=== PATIENT | female | born 1935 | race Caucasian/White ===

== ENCOUNTER 2020-11-13 08:56 | Inpatient (IN) | payer MEDICARE, OTHER ==
[2020-11-13] MEDS ORDERED: FUROSEMIDE 10 MG/ML 4 ML VIAL IV STA (09:14)
--- NOTE | 2020-11-13 09:20 | ED ---
General Adult HPI - General Chief complaint: Weakness Stated complaint: weakness Time Seen by Provider: 11/13/20 09:05 Source: patient, RN notes reviewed, old records reviewed Mode of arrival: EMS Limitations: no limitations - History of Present Illness Initial comments: This is an 85-year-old female presents emergency Department because she's been weaker and short of breath. Patient states she did get out of bed and fall today but she did not get hurt but she needed help to get up so her sister called EMS. Patient states over the last few days she's felt little more short of breath and slightly weaker. Patient denies any fever chills or cough per patient denies chest pain palpitations. Patient states she has noticed increased swelling to the legs bilaterally. Patient denies any calf tenderness. Patient denies any abdominal pain patient denies nausea vomiting or diarrhea. - Related Data Allergies Allergy/AdvReac Type Severity Reaction Status Date / Time No Known Allergies Allergy Verified 11/13/20 09:09 Review of Systems ROS Statement: Those systems with pertinent positive or pertinent negative responses have been documented in the HPI. ROS Other: All systems not noted in ROS Statement are negative. Past Medical History Past Medical History: Diabetes Mellitus History of Any Multi-Drug Resistant Organisms: None Reported Past Surgical History: No Surgical Hx Reported Past Psychological History: No Psychological Hx Reported Smoking Status: Former smoker Past Alcohol Use History: None Reported Past Drug Use History: None Reported General Exam - General Exam Comments Initial Comments: GENERAL: Patient is well-developed and well-nourished. Patient is nontoxic and well- hydrated and is in no acute distress. ENT: Neck is soft and supple. No significant lymphadenopathy is noted. Oropharynx is clear. Moist mucous membranes. Neck has full range of motion without eliciting any pain. EYES: The sclera were anicteric and conjunctiva were pink and moist. Extraocular movements were intact and pupils were equal round and reactive to light. Eyelids were unremarkable. PULMONARY: Patient is very diminished breath sounds. CARDIOVASCULAR: There is a regular rate and rhythm without any murmurs gallops or rubs. ABDOMEN: Soft and nontender with normal bowel sounds. SKIN: Skin is clear with no lesions or rashes and otherwise unremarkable. NEUROLOGIC: Patient is alert and oriented x3. Cranial nerves II through XII are grossly intact. Motor and sensory are also intact. Normal speech, volume and content. Symmetrical smile. MUSCULOSKELETAL: Normal extremities with adequate strength and full range of motion. Patient has 2+ edema bilaterally. LYMPHATICS: No significant lymphadenopathy is noted PSYCHIATRIC: Normal psychiatric evaluation. Limitations: no limitations Course Vital Signs 11/13/20 11/13/20 11/13/20 09:03 09:09 10:00 Temperature 97.8 F Pulse Rate 85 91 Respiratory 24 24 Rate Blood Pressure 132/76 132/76 O2 Sat by Pulse 87 L 96 97 Oximetry 11/13/20 11:00 Temperature Pulse Rate 92 Respiratory 25 H Rate Blood Pressure 131/75 O2 Sat by Pulse 98 Oximetry Medical Decision Making - Medical Decision Making Patient added that she was a smoker for probably at least 30 years but hasn't smoked in years. EKG shows sinus rhythm at 82 bpm PA interval is 240 QRS is 86 Q-T intervals 428 QTC is 500 per patient's EKG shows no ST segment elevation or depression. Patient does however have Q waves in V1 through the 6. I have no old EKG to compare to Chest x-ray shows pulmonary edema. Patient received Lasix in the emergency department. I spoke with Dr. Luna he agreed to admit the patient I admitted the patient wrote admitting orders I consult cardiology. I continued Lasix Nitropaste on the floor. - Lab Data Result diagrams: 11/13/20 09:30 11/13/20 09:30 Lab Results 11/13/20 11/13/20 11/13/20 Range/Units 09:30 09:30 09:30 WBC 3.9 (3.8-10.6) k/uL RBC 4.02 (3.80-5.40) m/uL Hgb 10.6 L (11.4-16.0) gm/dL Hct 34.1 (34.0-46.0) % MCV 84.7 (80.0-100.0) fL MCH 26.3 (25.0-35.0) pg MCHC 31.1 (31.0-37.0) g/dL RDW 17.7 H (11.5-15.5) % Plt Count 337 (150-450) k/uL MPV 7.5 Neutrophils % 77 % Lymphocytes % 14 % Monocytes % 6 % Eosinophils % 2 % Basophils % 0 % Neutrophils # 3.0 (1.3-7.7) k/uL Lymphocytes # 0.5 L (1.0-4.8) k/uL Monocytes # 0.2 (0-1.0) k/uL Eosinophils # 0.1 (0-0.7) k/uL Basophils # 0.0 (0-0.2) k/uL Hypochromasia Marked Poikilocytosis Slight Anisocytosis Slight PT 11.2 (9.0-12.0) sec INR 1.1 (<1.2) APTT 20.9 L (22.0-30.0) sec Sodium 137 (137-145) mmol/L Potassium 4.1 (3.5-5.1) mmol/L Chloride 101 (98-107) mmol/L Carbon Dioxide 30 (22-30) mmol/L Anion Gap 6 mmol/L BUN 15 (7-17) mg/dL Creatinine 0.66 (0.52-1.04) mg/dL Est GFR (CKD-EPI)AfAm >90 (>60 ml/min/1.73 sqM) Est GFR (CKD-EPI)NonAf 82 (>60 ml/min/1.73 sqM) Glucose 274 H (74-99) mg/dL Plasma Lactic Acid Jeremie (0.7-2.0) mmol/L Calcium 9.1 (8.4-10.2) mg/dL Magnesium 1.8 (1.6-2.3) mg/dL Total Bilirubin 0.6 (0.2-1.3) mg/dL AST 32 (14-36) U/L ALT 13 (4-34) U/L Alkaline Phosphatase 81 (38-126) U/L Troponin I (0.000-0.034) ng/mL NT-Pro-B Natriuret Pep pg/mL Total Protein 6.3 (6.3-8.2) g/dL Albumin 3.7 (3.5-5.0) g/dL Urine Color Urine Appearance (Clear) Urine pH (5.0-8.0) Ur Specific [place] (1.001-1.035) Urine Protein (Negative) Urine Glucose (UA) (Negative) Urine Ketones (Negative) Urine Blood (Negative) Urine Nitrite (Negative) Urine Bilirubin (Negative) Urine Urobilinogen (<2.0) mg/dL Ur Leukocyte Esterase (Negative) Urine RBC (0-5) /hpf Urine WBC (0-5) /hpf Ur Squamous Epith Cells (0-4) /hpf Urine Bacteria (None) /hpf Hyaline Casts (0-2) /lpf Urine Mucus (None) /hpf 11/13/20 11/13/20 11/13/20 Range/Units 09:30 09:30 09:30 WBC (3.8-10.6) k/uL RBC (3.80-5.40) m/uL Hgb (11.4-16.0) gm/dL Hct (34.0-46.0) % MCV (80.0-100.0) fL MCH (25.0-35.0) pg MCHC (31.0-37.0) g/dL RDW (11.5-15.5) % Plt Count (150-450) k/uL MPV Neutrophils % % Lymphocytes % % Monocytes % % Eosinophils % % Basophils % % Neutrophils # (1.3-7.7) k/uL Lymphocytes # (1.0-4.8) k/uL Monocytes # (0-1.0) k/uL Eosinophils # (0-0.7) k/uL Basophils # (0-0.2) k/uL Hypochromasia Poikilocytosis Anisocytosis PT (9.0-12.0) sec INR (<1.2) APTT (22.0-30.0) sec Sodium (137-145) mmol/L Potassium (3.5-5.1) mmol/L Chloride (98-107) mmol/L Carbon Dioxide (22-30) mmol/L Anion Gap mmol/L BUN (7-17) mg/dL Creatinine (0.52-1.04) mg/dL Est GFR (CKD-EPI)AfAm (>60 ml/min/1.73 sqM) Est GFR (CKD-EPI)NonAf (>60 ml/min/1.73 sqM) Glucose (74-99) mg/dL Plasma Lactic Acid Jeremie 1.6 (0.7-2.0) mmol/L Calcium (8.4-10.2) mg/dL Magnesium (1.6-2.3) mg/dL Total Bilirubin (0.2-1.3) mg/dL AST (14-36) U/L ALT (4-34) U/L Alkaline Phosphatase (38-126) U/L Troponin I 0.063 H* (0.000-0.034) ng/mL NT-Pro-B Natriuret Pep 4420 pg/mL Total Protein (6.3-8.2) g/dL Albumin (3.5-5.0) g/dL Urine Color Urine Appearance (Clear) Urine pH (5.0-8.0) Ur Specific [place] (1.001-1.035) Urine Protein (Negative) Urine Glucose (UA) (Negative) Urine Ketones (Negative) Urine Blood (Negative) Urine Nitrite (Negative) Urine Bilirubin (Negative) Urine Urobilinogen (<2.0) mg/dL Ur Leukocyte Esterase (Negative) Urine RBC (0-5) /hpf Urine WBC (0-5) /hpf Ur Squamous Epith Cells (0-4) /hpf Urine Bacteria (None) /hpf Hyaline Casts (0-2) /lpf Urine Mucus (None) /hpf 11/13/20 Range/Units 10:40 WBC (3.8-10.6) k/uL RBC (3.80-5.40) m/uL Hgb (11.4-16.0) gm/dL Hct (34.0-46.0) % MCV (80.0-100.0) fL MCH (25.0-35.0) pg MCHC (31.0-37.0) g/dL RDW (11.5-15.5) % Plt Count (150-450) k/uL MPV Neutrophils % % Lymphocytes % % Monocytes % % Eosinophils % % Basophils % % Neutrophils # (1.3-7.7) k/uL Lymphocytes # (1.0-4.8) k/uL Monocytes # (0-1.0) k/uL Eosinophils # (0-0.7) k/uL Basophils # (0-0.2) k/uL Hypochromasia Poikilocytosis Anisocytosis PT (9.0-12.0) sec INR (<1.2) APTT (22.0-30.0) sec Sodium (137-145) mmol/L Potassium (3.5-5.1) mmol/L Chloride (98-107) mmol/L Carbon Dioxide (22-30) mmol/L Anion Gap mmol/L BUN (7-17) mg/dL Creatinine (0.52-1.04) mg/dL Est GFR (CKD-EPI)AfAm (>60 ml/min/1.73 sqM) Est GFR (CKD-EPI)NonAf (>60 ml/min/1.73 sqM) Glucose (74-99) mg/dL Plasma Lactic Acid Jeremie (0.7-2.0) mmol/L Calcium (8.4-10.2) mg/dL Magnesium (1.6-2.3) mg/dL Total Bilirubin (0.2-1.3) mg/dL AST (14-36) U/L ALT (4-34) U/L Alkaline Phosphatase (38-126) U/L Troponin I (0.000-0.034) ng/mL NT-Pro-B Natriuret Pep pg/mL Total Protein (6.3-8.2) g/dL Albumin (3.5-5.0) g/dL Urine Color Colorless Urine Appearance Clear (Clear) Urine pH 5.0 (5.0-8.0) Ur Specific [place] 1.006 (1.001-1.035) Urine Protein Negative (Negative) Urine Glucose (UA) 3+ H (Negative) Urine Ketones Negative (Negative) Urine Blood Negative (Negative) Urine Nitrite Negative (Negative) Urine Bilirubin Negative (Negative) Urine Urobilinogen <2.0 (<2.0) mg/dL Ur Leukocyte Esterase Trace H (Negative) Urine RBC 2 (0-5) /hpf Urine WBC <1 (0-5) /hpf Ur Squamous Epith Cells <1 (0-4) /hpf Urine Bacteria Rare H (None) /hpf Hyaline Casts 4 H (0-2) /lpf Urine Mucus Rare H (None) /hpf Critical Care Time Critical Care Time: Yes Total Critical Care Time: 35 Disposition Clinical Impression: Acute pulmonary edema Disposition: ADMITTED IP TO THIS HOSP Referrals: Sandee Hernandez MD [Primary Care Provider] - 1-2 days Time of Disposition: 11:08
[2020-11-13 09:44] LABS: Anisocytosis Slight; Basophils % (A) 0 %; Eosinophils # (A) 0.1 k/uL (0-0.7); Eosinophils % (A) 2 %; HCT 34.1 % (34.0-46.0); HGB 10.6 gm/dL (11.4-16.0); Hypochromasia Marked; Lymphocytes # (A) 0.5 k/uL (1.0-4.8); Lymphocytes % (A) 14 %; MCH 26.3 pg (25.0-35.0); MCHC 31.1 g/dL (31.0-37.0); MCV 84.7 fL (80.0-100.0); Mean Platelet Volume 7.5; Monocytes # (A) 0.2 k/uL (0-1.0); Monocytes % (A) 6 %; Neutrophils % (A) 77 %; Platelet Count 337 k/uL (150-450); Poikilocytosis Slight; RBC 4.02 m/uL (3.80-5.40); RDW 17.7 % (11.5-15.5); WBC 3.9 k/uL (3.8-10.6)
[2020-11-13 09:55] LABS: ALT 13 U/L (4-34); AST 32 U/L (14-36); African American GFR (CKD) >90 (>60 ml/min/1.73 sqM); Albumin 3.7 g/dL (3.5-5.0); Alkaline Phosphatase 81 U/L (38-126); Anion Gap 6 mmol/L; Blood Urea Nitrogen 15 mg/dL (7-17); Calcium 9.1 mg/dL (8.4-10.2); Carbon Dioxide 30 mmol/L (22-30); Chloride 101 mmol/L (98-107); Glucose 274 mg/dL (74-99); Magnesium 1.8 mg/dL (1.6-2.3); Non-African American GFR(CKD) 82 (>60 ml/min/1.73 sqM); Potassium 4.1 mmol/L (3.5-5.1); Sodium 137 mmol/L (137-145); Total Bilirubin 0.6 mg/dL (0.2-1.3); Total Protein 6.3 g/dL (6.3-8.2)
[2020-11-13 10:01] LABS: INR 1.1 (<1.2); Prothrombin Time 11.2 sec (9.0-12.0)
--- NOTE | 2020-11-13 10:04 | XR ---
EXAMINATION TYPE: XR chest 2V DATE OF EXAM: 11/13/2020 COMPARISON: NONE HISTORY: Shortness of breath TECHNIQUE: Frontal and lateral views of the chest are obtained. FINDINGS: Scattered senescent parenchymal changes are noted. There is cardiomegaly with pulmonary venous conges tion and scattered infiltrates. Findings may reflect early congestive failure although infiltrates of other etiology are not excluded. Correlate clinically and progress studies are advised. Mediastinal structures are stable and grossly unremarkable. No evidence for hilar prominence. Degenerative changes dorsal spine. IMPRESSION: 1. There is cardiomegaly with pulmonary venous congestion and scattered infiltrates. Findings may ref lect early congestive failure although infiltrates of other etiology are not excluded. Correlate clin ically and progress studies are advised.
[2020-11-13 10:43] LABS: Partial Thromboplastin Time 20.9 sec (22.0-30.0)
[2020-11-13 10:54] LABS: Appearance,Urine Clear (Clear); Bacteria,Urine Rare /hpf; Bilirubin,Urine Negative (Negative); Blood,Urine Negative (Negative); Color,Urine Colorless; Glucose,Urine (UA) 3+ (Negative); Hyaline Casts,Urine 4 /lpf (0-2); Ketones,Urine Negative (Negative); Leukocyte Esterase,Urine Trace (Negative); Mucus,Urine Rare /hpf; Nitrite,Urine Negative (Negative); Protein,Urine Negative (Negative); RBC,Urine 2 /hpf (0-5); Specific Gravity,Urine 1.006 (1.001-1.035); Squamous Epithelial Cell,Urine <1 /hpf (0-4); Urobilinogen,Urine <2.0 mg/dL (<2.0); WBC,Urine <1 /hpf (0-5)
[2020-11-13] MEDS ORDERED: ASPIRIN 325 MG TAB PO STA (11:08)
[2020-11-13] MEDS ORDERED: NITROGLYCERIN OINT 1 INCH/GM PACKET TOPICAL SCH (13:00)
--- NOTE | 2020-11-13 14:39 | P.CRDCN ---
History of Present Illness Consult date: 11/13/20 History of present illness: HISTORY OF PRESENT ILLNESS: This is a 85-year-old female with a past medical history significant for diabetes mellitus, hyperlipidemia, and former nicotine dependence. Patient does not follow with a fruit checker. We have been asked to see the patient in consultation for pulmonary edema. Patient examined at the bedside in the emergency room. Patient is currently alert and oriented 1. Patient is unable to give much history. Patient thinks that she is at home at the time of examination. When patient was reoriented and told why she was in the hospital she was unable to tell me why she came to the hospital or who brought her here. Patient currently denies chest pain or pressure. She denies shortness of anette th. She denies dizziness or lightheadedness. Patient was found to be in pulmonary edema and was started on IV Lasix. Preliminary echocardiogram completed in the emergency room reveals ejection fraction 20-25% and moderate aortic stenosis. EKG reveals sinus mechanism with nonspecific changes. First degree AV block. Left axis deviation. Chest xray cardiomegaly with pulmonary venous congestion and scattered infiltrates. Findings may reflect early congestive heart failure although infiltrates and other etiologies are not excluded. Laboratory data: WBC 3.9. Hemoglobin 10.6. Platelet count 337. Sodium 137. Potassium 4.1. BUN 15. Creatinine 0.66. BNP 4420. Troponin 0.063. 0.061. Current home cardiac medications include simvastatin 40 mg daily REVIEW OF SYSTEMS: At the time of my exam: CONSTITUTIONAL: Denies fever or chills. HEENT: Denies blurred vision, vision changes, or eye pain. Denies hemoptysis CARDIOVASCULAR: Denies chest pain. Denies orthopnea. Denies PND. Denies palpitations RESPIRATORY: Denies shortness of breath. GASTROINTESTINAL: Denies abdominal pain. Denies nausea or vomiting. HEMATOLOGIC: Denies bleeding disorders. GENITOURINARY: Denies any blood in urine. SKIN: Denies pruitis. Denies rash. PHYSICAL EXAM: VITAL SIGNS: Reviewed. GENERAL: Well-developed in no acute distress. HEENT: Head is normocephalic. Pupils are equal, round. Sclerae anicteric. Mucous membranes of the mouth are moist. Neck supple. No JVD or thyromegaly LUNGS: Respirations even and unlabored. Lungs diminished bilaterally with bibasilar rales. HEART: Regular rate and rhythm. S1 and S2 heard. Systolic murmur noted. Heart sounds distant. ABDOMEN: Soft. Nondistended. Nontender. EXTREMITIES: Normal range of motion. No clubbing or cyanosis. Peripheral pulses intact. Trace bilateral pedal edema NEUROLOGIC: Awake and alert. Oriented x 1. ASSESSMENT: Acute systolic heart failure, EF 20-25%, BNP 4420 Moderate aortic stenosis Abnormal troponins, not indicative of myocardial injury Diabetes mellitus Hypertension Former nicotine dependence Morbid obesity, BMI 52.9 PLAN: Preliminary echocardiogram completed in the emergency room reveals ejection fraction 20-25% and moderate aortic stenosis. Await final read. Continue IV lasix 40mg Q8 hours Daily weights Accurate I&O Monitor kidney function Resume home dose of Simvastatin Decrease aspirin to 81 mg daily. Discontinue nitro paste. Begin metoprolol 12.5 mg twice a day Begin lisinopril 2.5 mg daily Further recommendations pending patient's course Nurse practitioner note has been reviewed by physician. Signing provider agrees with the documented findings, assessment, and plan of care. Past Medical History Past Medical History: Diabetes Mellitus History of Any Multi-Drug Resistant Organisms: None Reported Past Surgical History: No Surgical Hx Reported Past Psychological History: No Psychological Hx Reported Smoking Status: Former smoker Past Alcohol Use History: None Reported Past Drug Use History: None Reported Medications and Allergies Home Medications Medication Instructions Recorded Confirmed Type Acetaminophen Tab [Tylenol Tab] 1,000 mg PO AC-TID 11/13/20 11/13/20 History Glimepiride [Amaryl] 4 mg PO BID 11/13/20 11/13/20 History Multivitamins, Thera [Multivitamin 1 tab PO DAILY 11/13/20 11/13/20 History (formulary)] Pioglitazone [Actos] 30 mg PO DAILY 11/13/20 11/13/20 History Simvastatin 40 mg PO HS 11/13/20 11/13/20 History Allergies Allergy/AdvReac Type Severity Reaction Status Date / Time No Known Allergies Allergy Verified 11/13/20 11:58 Physical Exam Vitals: Vital Signs Temp Pulse Resp BP Pulse Ox 11/13/20 14:11 88 18 118/59 98 11/13/20 12:30 92 24 132/75 95 11/13/20 12:15 86 132/75 98 11/13/20 12:00 86 98 11/13/20 11:45 86 99 11/13/20 11:30 89 97 11/13/20 11:22 94 L 11/13/20 11:15 90 98 11/13/20 11:00 92 25 H 131/75 98 11/13/20 10:00 91 24 132/76 97 11/13/20 09:09 96 11/13/20 09:03 97.8 F 85 24 132/76 87 L Intake and Output 11/12/20 11/13/20 11/13/20 22:59 06:59 14:59 Other: Weight 122.924 kg Results 11/13/20 09:30 11/13/20 09:30 Cardiac Enzymes 11/13/20 11/13/20 11/13/20 Range/Units 09:30 09:30 12:26 AST 32 (14-36) U/L Troponin I 0.063 H* 0.061 H* (0.000-0.034) ng/mL Coagulation 11/13/20 Range/Units 09:30 PT 11.2 (9.0-12.0) sec APTT 20.9 L (22.0-30.0) sec CBC 11/13/20 Range/Units 09:30 WBC 3.9 (3.8-10.6) k/uL RBC 4.02 (3.80-5.40) m/uL Hgb 10.6 L (11.4-16.0) gm/dL Hct 34.1 (34.0-46.0) % Plt Count 337 (150-450) k/uL Comprehensive Metabolic Panel 11/13/20 Range/Units 09:30 Sodium 137 (137-145) mmol/L Potassium 4.1 (3.5-5.1) mmol/L Chloride 101 (98-107) mmol/L Carbon Dioxide 30 (22-30) mmol/L BUN 15 (7-17) mg/dL Creatinine 0.66 (0.52-1.04) mg/dL Glucose 274 H (74-99) mg/dL Calcium 9.1 (8.4-10.2) mg/dL AST 32 (14-36) U/L ALT 13 (4-34) U/L Alkaline Phosphatase 81 (38-126) U/L Total Protein 6.3 (6.3-8.2) g/dL Albumin 3.7 (3.5-5.0) g/dL Current Medications Generic Name Dose Route Start Last Admin Trade Name Freq PRN Reason Stop Dose Admin Aspirin 81 mg 11/14/20 09:00 Aspirin 81 Mg PO DAILY FELICIA Atorvastatin Calcium 20 mg 11/13/20 21:00 Atorvastatin 20 Mg Tab PO HS FELICIA Furosemide 40 mg 11/13/20 16:00 Furosemide 40 Mg Tab PO Q8HR FELICIA Metoprolol Tartrate 12.5 mg 11/13/20 21:00 Metoprolol Tartrate 12.5 Mg Tab PO BID FELICIA Intake and Output 11/12/20 11/13/20 11/13/20 22:59 06:59 14:59 Other: Weight 122.924 kg Patient Weight 11/14/20 06:59 Weight 122.924 kg 11/13/20 09:30 11/13/20 09:30
[2020-11-13] MEDS: FUROSEMIDE 40 MG TAB PO SCH ×2 (16:57→23:47)
[2020-11-13 21:18] LABS: Glucose,Whole Blood 178 mg/dL (75-99)
[2020-11-13] MEDS: ATORVASTATIN 20 MG TAB PO SCH (21:42)
[2020-11-13] MEDS: METOPROLOL TARTRATE 12.5 MG TAB PO SCH (21:42)
[2020-11-13] MEDS: INSULIN ASPART (NovoLOG) 100 UNIT/ML VIAL SQ SCH (21:45)
--- NOTE | 2020-11-13 22:24 | P.HPIM ---
History of Present Illness H&P Date: 11/13/20 Chief Complaint: Short of breath History of presenting complaint: This is a pleasant 85-year-old patient, was chronic stable medical conditions include diabetes, hyperlipidemia, obesity. Osteoarthritis. Patient has been feeling a bit weak and short of breath. She was trying to get out of bed and fell to the floor. Unable to get up. Normally she able to walk around. For her sister called EMS. Denies any fever and chills. No cough. Some swelling to lower extremity. Appetite is fair Review of systems: GEN.: Tired EYES: None HEENT: None NECK: None RESPIRATORY: As above CARDIOVASCULAR: Edema GASTROINTESTINAL: None GENITOURINARY: None MUSCULOSKELETAL: [Some joint pains LYMPHATICS: None HEMATOLOGICAL: None PSYCHIATRY: None NEUROLOGICAL: None Past medical history to include: Diabetes, hyperlipidemia, obesity Social history: Lives with her sister. Did smoke in the remote past. No alcohol. Physical examination: VITAL SIGNS: 97.8, 85, 24, 132/76, 87% on room air GENERAL: BMI 53, laying in bed, tired. EYES: Pupils equal. Conjunctiva normal. HEENT: External appearance of nose and ears normal, oral cavity grossly normal. NECK: JVD unable to assess; masses not palpable. HEART: First and second heart sounds are normal; edema present. LUNGS: Respiratory rate increased decreased breath sounds. ABDOMEN: Soft, nontender, liver spleen not palpable, no masses palpable. PSYCH: Alert and oriented x3; mood and affect normal. MUSCULAR skeletal: Evidence of OA NEUROLOGICAL: Cranial nerves grossly intact; no facial asymmetry, power and sensation grossly intact. LYMPHATICS: No lymph nodes palpable in the axilla and neck INVESTIGATIONS, reviewed in the clinical context: WBC 3.9 hemoglobin 10.6 platelets 337 potassium 4.1 creatinine 0.66 Troponin I: 0.063, 0.061, 0.063 Coronavirus [PCR]-not detected EKG tracing personally reviewed by me-normal sinus rhythm poor R-wave progression some nonspecific ST-T segment changes Chest x-ray film personally reviewed by me-cardiomegaly and pulmonary edema Assessment and plan: -This patient presents with increasing shortness of breath edema checks to x-ray compatible with pulmonary edema. Acute congestive heart failure exacerbation patient be placed on Lasix. Beta lew, SUNNY inhibitor. -Troponin leak could be from CHF. Has no chest pain -Diabetes mellitus type 2 and oral hypoglycemic. Continue with the same follow Accu-Cheks -Morbid obesity BMI 53. For weight loss measures as outpatient and follow with PCP -Hyperlipidemia. Switch to Lipitor from Zocor. With a better clinical profile -Primary osteoarthritis. Use Tylenol when necessary Care was discussed with the patient. 2-D echocardiogram. Cardiology was consulted. Past Medical History Past Medical History: Diabetes Mellitus History of Any Multi-Drug Resistant Organisms: None Reported Past Surgical History: No Surgical Hx Reported Past Psychological History: No Psychological Hx Reported Smoking Status: Former smoker Past Alcohol Use History: None Reported Past Drug Use History: None Reported - Past Family History Father Family Medical History: Diabetes Mellitus, Myocardial Infarction (CT) Medications and Allergies Home Medications Medication Instructions Recorded Confirmed Type Acetaminophen Tab [Tylenol Tab] 1,000 mg PO AC-TID 11/13/20 11/13/20 History Glimepiride [Amaryl] 4 mg PO BID 11/13/20 11/13/20 History Multivitamins, Thera [Multivitamin 1 tab PO DAILY 11/13/20 11/13/20 History (formulary)] Pioglitazone [Actos] 30 mg PO DAILY 11/13/20 11/13/20 History Simvastatin 40 mg PO HS 11/13/20 11/13/20 History Allergies Allergy/AdvReac Type Severity Reaction Status Date / Time No Known Allergies Allergy Verified 11/13/20 11:58 Physical Exam Vitals: Vital Signs Temp Pulse Pulse Resp BP BP Pulse Ox 11/13/20 22:08 98.1 F 84 20 120/98 99 11/13/20 20:34 98.2 F 86 18 112/64 97 11/13/20 16:00 71 18 101/56 99 11/13/20 14:11 88 18 118/59 98 11/13/20 12:30 92 24 132/75 95 11/13/20 12:15 86 132/75 98 11/13/20 12:00 97.7 F 86 84 18 101/56 100 11/13/20 11:45 86 99 11/13/20 11:30 89 97 11/13/20 11:22 94 L 11/13/20 11:15 90 98 11/13/20 11:00 92 25 H 131/75 98 11/13/20 10:00 91 24 132/76 97 11/13/20 09:09 96 11/13/20 09:03 97.8 F 85 24 132/76 87 L Intake and Output 11/13/20 11/13/20 11/13/20 06:59 14:59 22:59 Intake Total 50 Output Total 150 Balance -100 Intake: Oral 50 Output: Urine 150 Other: Voiding Method Indwelling Catheter # Voids 3 Weight 122.924 kg 123.1 kg Results CBC & Chem 7: 11/13/20 09:30 11/13/20 09:30 Labs: Abnormal Lab Results - Last 24 Hours (Table) 11/13/20 11/13/20 11/13/20 Range/Units 09:30 09:30 09:30 Hgb 10.6 L (11.4-16.0) gm/dL RDW 17.7 H (11.5-15.5) % Lymphocytes # 0.5 L (1.0-4.8) k/uL APTT 20.9 L (22.0-30.0) sec Glucose 274 H (74-99) mg/dL POC Glucose (mg/dL) (75-99) mg/dL Troponin I (0.000-0.034) ng/mL Urine Glucose (UA) (Negative) Ur Leukocyte Esterase (Negative) Urine Bacteria (None) /hpf Hyaline Casts (0-2) /lpf Urine Mucus (None) /hpf 11/13/20 11/13/20 11/13/20 Range/Units 09:30 10:40 12:26 Hgb (11.4-16.0) gm/dL RDW (11.5-15.5) % Lymphocytes # (1.0-4.8) k/uL APTT (22.0-30.0) sec Glucose (74-99) mg/dL POC Glucose (mg/dL) (75-99) mg/dL Troponin I 0.063 H* 0.061 H* (0.000-0.034) ng/mL Urine Glucose (UA) 3+ H (Negative) Ur Leukocyte Esterase Trace H (Negative) Urine Bacteria Rare H (None) /hpf Hyaline Casts 4 H (0-2) /lpf Urine Mucus Rare H (None) /hpf 11/13/20 11/13/20 Range/Units 16:35 21:16 Hgb (11.4-16.0) gm/dL RDW (11.5-15.5) % Lymphocytes # (1.0-4.8) k/uL APTT (22.0-30.0) sec Glucose (74-99) mg/dL POC Glucose (mg/dL) 178 H (75-99) mg/dL Troponin I 0.063 H* (0.000-0.034) ng/mL Urine Glucose (UA) (Negative) Ur Leukocyte Esterase (Negative) Urine Bacteria (None) /hpf Hyaline Casts (0-2) /lpf Urine Mucus (None) /hpf Thrombosis Risk Factor Assmnt - Choose All That Apply Each Factor Represents 1 point: Obesity (BMI >25) Each Risk Factor Represents 3 Points: Age 75 years or older Thrombosis Risk Factor Assessment Total Risk Factor Score: 4 Thrombosis Risk Factor Assessment Level: Moderate Risk
[2020-11-14 05:55] LABS: Glucose,Whole Blood 139 mg/dL (75-99)
[2020-11-14] MEDS: INSULIN ASPART (NovoLOG) 100 UNIT/ML VIAL SQ SCH ×4 (06:27→20:58)
[2020-11-14] MEDS: ENOXAPARIN 40 MG/0.4 ML SYRINGE SQ SCH (08:34)
[2020-11-14] MEDS: FUROSEMIDE 40 MG TAB PO SCH ×3 (08:34→22:12)
[2020-11-14] MEDS: METOPROLOL TARTRATE 12.5 MG TAB PO SCH (08:34)
[2020-11-14] MEDS: ASPIRIN 81 MG PO SCH (08:34)
[2020-11-14] MEDS ORDERED: ASPIRIN 325 MG TAB PO SCH (09:00)
[2020-11-14] MEDS ORDERED: FAMOTIDINE 20 MG/2 ML VIAL IV SCH (09:00)
[2020-11-14 10:29] LABS: Anisocytosis Slight; Basophils % (A) 0 %; Eosinophils # (A) 0.1 k/uL (0-0.7); Eosinophils % (A) 1 %; HCT 34.1 % (34.0-46.0); HGB 10.3 gm/dL (11.4-16.0); Hypochromasia Marked; Lymphocytes # (A) 0.5 k/uL (1.0-4.8); Lymphocytes % (A) 12 %; MCH 25.7 pg (25.0-35.0); MCHC 30.2 g/dL (31.0-37.0); MCV 85.1 fL (80.0-100.0); Mean Platelet Volume 7.1; Monocytes # (A) 0.3 k/uL (0-1.0); Monocytes % (A) 7 %; Neutrophils # (A) 3.4 k/uL (1.3-7.7); Neutrophils % (A) 78 %; Platelet Count 339 k/uL (150-450); Poikilocytosis Slight; RDW 17.3 % (11.5-15.5); WBC 4.4 k/uL (3.8-10.6)
[2020-11-14 10:58] LABS: African American GFR (CKD) >90 (>60 ml/min/1.73 sqM); Anion Gap 4 mmol/L; Blood Urea Nitrogen 13 mg/dL (7-17); Calcium 8.9 mg/dL (8.4-10.2); Carbon Dioxide 39 mmol/L (22-30); Chloride 94 mmol/L (98-107); Glucose 173 mg/dL (74-99); Magnesium 1.5 mg/dL (1.6-2.3); Non-African American GFR(CKD) 78 (>60 ml/min/1.73 sqM); Potassium 3.7 mmol/L (3.5-5.1); Sodium 137 mmol/L (137-145)
[2020-11-14 11:35] LABS: Glucose,Whole Blood 210 mg/dL (75-99)
--- NOTE | 2020-11-14 11:37 | ECHOF ---
Referral Reason:LV function, CHF MEASUREMENTS -------- HEIGHT: 152.4 cm WEIGHT: 127.0 kg BP: RVIDd: 3.1 cm (< 3.3) IVSd: 1.2 cm (0.6 - 1.1) LVIDd: 5.7 cm (3.9 - 5.3) LVPWd: 1.5 cm (0.6 - 1.1) IVSs: 1.6 cm LVIDs: 4.4 cm LVPWs: 1.7 cm LA Diam: 4.5 cm (2.7 - 3.8) Ao Diam: 2.5 cm (2.0 - 3.7) MV EXCURSION: 17.332 mm (> 18.000) MV EF SLOPE: 60 mm/s (70 - 150) EPSS: 1.8 cm MV E Demetris: 0.64 m/s MV DecT: 208 ms MV A Demetris: 0.74 m/s MV E/A Ratio: 0.87 AV maxP.62 mmHg AV meanP.51 mmHg AR PHT: 355 ms RAP: 10.00 mmHg RVSP: 53.45 mmHg FINDINGS -------- Sinus rhythm. Morbid Obesity This was a techncally difficult study with suboptimal views, , Lumason utilized for enhancement of images. The left ventricular size is normal. There is mild concentric left ventricular hypertrophy. There is severe global hypokinesis of LV accept the posterolateral wall is moving better. Especially the apical area is akinetic. These findings are consistent with ischemic cardio myopathy. Overall left ventricular systolic function is severely impaired with, an EF between 20 - 25 %. The right ventricle is normal in size. The right atrial size is normal. There is moderate aortic stenosis present. Peak/mean gradient across the Aortic Valve is 32.62mmHg / 18.51mmHg. Mild mitral regurgitation is present. Mild tricuspid regurgitation present. There is moderate pulmonary hypertension. The right ventric ular systolic pressure, as measured by Doppler, is 53.45mmHg. There is no pulmonic regurgitation present. The aortic root size is normal. There is no pericardial effusion. CONCLUSIONS -------- 1. Morbid Obesity 2. This was a techncally difficult study with suboptimal views, , Lumason utilized for enhancement of images. 3. The left ventricular size is normal. 4. There is mild concentric left ventricular hypertrophy. 5. There is moderate global hypokinesis of LV . 6. Overall left ventricular systolic function is severely impaired with, an EF between 20 - 25 %.Ther e is almost global hypokinesia with only inferior lateral wall moving better. The apex is akinetic. The findings are consistent with ischemic cardiomyopathy 7. The right ventricle is normal in size. 8. The right atrial size is normal. 9. There is moderate aortic stenosis present. 10. Peak/mean gradient across the Aortic Valve is 32.62mmHg / 18.51mmHg. 11. Mild mitral regurgitation is present. 12. Mild tricuspid regurgitation present. 13. There is moderate pulmonary hypertension. 14. The right ventricular systolic pressure, as measured by Doppler, is 53.45mmHg. 15. There is no pulmonic regurgitation present. 16. The aortic root size is normal. 17. There is no pericardial effusion. LASER/ELECTRO OPTICS TECHNICIAN: Fiona Parker RDCS
--- NOTE | 2020-11-14 12:00 | P.PN ---
Subjective This is a pleasant 85 years old female with past medical history of diabetes mellitus, hyperlipidemia. She does not follow up with PCP who presents because of weakness and dyspnea, she fell from bed yesterday morning. She is a patient of Dr. Isha chavez Patient says that she slipped off her bed when trying to get up without losing consciousness or dizziness, she could not lift herself and she has to wait for her sister to call EMS. She complains from exertional dyspnea but She denies chest pain or coughing. Patient noticed to have some dyspnea while talking No diarrhea or abdominal pain or vomiting. She does not complain from urinary symptoms like no dysuria or change in frequency. She denies smoking, alcohol or illicit tracts She was saturating 87% on room air Unremarkable CBC except for mild anemia at 10.6 hemoglobin, INR is 1.1. Unremarkable basic metabolic panel and liver enzymes. The glucose is elevated at 274 Urine analysis is no suspicious of infection but that shows 3+ glucose. Qiu v is not detected. His troponin is elevated 0.063, proBNP is elevated at 4420 She was already started on Lasix 40 mg every 8 hours and aspirin 325 mg daily EKG showing normal sinus rhythm at [address]-T changes. Chest x-ray: CHF, pneumonia cannot be excluded Objective - Vital Signs Vital signs: Vital Signs Temp 97.6 F 11/14/20 08:33 Pulse 78 11/14/20 08:33 Resp 18 11/14/20 08:33 BP 119/66 11/14/20 08:33 Pulse Ox 97 11/14/20 08:33 Intake & Output 11/13/20 11/14/20 11/14/20 18:59 06:59 18:59 Intake Total 50 10 220 Output Total 150 Balance -100 10 220 Weight 123.1 kg 117.5 kg Intake: IV 10 40 Invasive Line 2 10 Invasive Line 3 40 Oral 50 0 180 Output: Urine 150 Other: Voiding Method Indwelling Catheter External Catheter External Catheter # Voids 3 2 - Exam GENERAL: The patient is alert and oriented x3, not in any acute distress. Well developed, well nourished. HEENT: Pupils are round and equally reacting to light. EOMI. No scleral icterus. No conjunctival pallor. Normocephalic, atraumatic. No pharyngeal erythema. No thyromegaly. CARDIOVASCULAR: S1 and S2 present. No murmurs, rubs, or gallops. -PULMONARY: Chest is clear to auscultation, no wheezing. Mild bilateral basal crepitation ABDOMEN: Soft, nontender, nondistended, normoactive bowel sounds. No palpable organomegaly. MUSCULOSKELETAL: No joint swelling or deformity. -EXTREMITIES: No cyanosis, clubbing,. Mild bilateral pitting leg edema NEUROLOGICAL: Gross neurological examination did not reveal any focal deficits. SKIN: No rashes. no petechiae. - Labs CBC & Chem 7: 11/14/20 09:13 11/14/20 09:13 Labs: Abnormal Lab Results - Last 24 Hours (Table) 11/13/20 11/13/20 11/13/20 Range/Units 12:26 16:35 21:16 Hgb (11.4-16.0) gm/dL MCHC (31.0-37.0) g/dL RDW (11.5-15.5) % Lymphocytes # (1.0-4.8) k/uL Chloride (98-107) mmol/L Carbon Dioxide (22-30) mmol/L Glucose (74-99) mg/dL POC Glucose (mg/dL) 178 H (75-99) mg/dL Magnesium (1.6-2.3) mg/dL Troponin I 0.061 H* 0.063 H* (0.000-0.034) ng/mL 11/14/20 11/14/20 11/14/20 Range/Units 05:53 09:13 09:13 Hgb 10.3 L (11.4-16.0) gm/dL MCHC 30.2 L (31.0-37.0) g/dL RDW 17.3 H (11.5-15.5) % Lymphocytes # 0.5 L (1.0-4.8) k/uL Chloride 94 L (98-107) mmol/L Carbon Dioxide 39 H (22-30) mmol/L Glucose 173 H (74-99) mg/dL POC Glucose (mg/dL) 139 H (75-99) mg/dL Magnesium 1.5 L (1.6-2.3) mg/dL Troponin I (0.000-0.034) ng/mL 11/14/20 Range/Units 11:33 Hgb (11.4-16.0) gm/dL MCHC (31.0-37.0) g/dL RDW (11.5-15.5) % Lymphocytes # (1.0-4.8) k/uL Chloride (98-107) mmol/L Carbon Dioxide (22-30) mmol/L Glucose (74-99) mg/dL POC Glucose (mg/dL) 210 H (75-99) mg/dL Magnesium (1.6-2.3) mg/dL Troponin I (0.000-0.034) ng/mL Assessment and Plan Assessment: New onset acute systolic CHF Elevated troponin, rule out and STEMI. Mostly troponin leak from myocardial injury as per elevator examiner and adjuster Acute hypoxic respiratory failure secondary to above Mechanical fall without loss of consciousness Diabetes mellitus, type II. With hyperglycemia Hyperlipidemia Morbid obesity with BMI 53 Plan: This is a pleasant 85 years old female who presents with acute CHF with ejection fraction less than 20%. Continue with diuretics. Continuous cardiology consult recommendation. Continue with aspirin. Check hemoglobin A1c Labs and medication were reviewed.. Continue same treatment. Continue with symptomatic treatment. Resume home medication. Monitor lytes and vitals. DVT and GI prophylaxis. Further recommendations as per clinical course of the patient DVT prophylaxis: Subcutaneous heparin GI Prophylaxis: Pepcid PT/OT: Pending Prognosis is guarded
--- NOTE | 2020-11-14 12:23 | XR ---
EXAMINATION TYPE: XR chest 1V portable DATE OF EXAM: 11/14/2020 COMPARISON: 11/13/2020 INDICATION: CHF follow-up TECHNIQUE: Single frontal view of the chest is obtained. FINDINGS: The heart size is enlarged. The pulmonary vasculature is normal. There appears be some improving aeration of the lung bases. IMPRESSION: 1. There may be some residual volume overload with cardiomegaly. Overt congestive heart failure may b e resolving.
--- NOTE | 2020-11-14 13:46 | P.PN ---
Subjective Progress Note Date: 11/14/20 HISTORY OF PRESENT ILLNESS: 11/13/2020 This is a 85-year-old female with a past medical history significant for diabetes mellitus, hyperlipidemia, and former nicotine dependence. Patient does not follow with a engineer of system development. We have been asked to see the patient in consultation for pulmonary edema. Patient examined at the bedside in the emergency room. Patient is currently alert and oriented 1. Patient is unable to give much history. Patient thinks that she is at home at the time of examination. When patient was reoriented and told why she was in the hospital she was unable to tell me why she came to the hospital or who brought her here. Patient currently denies chest pain or pressure. She denies shortness of breath. She denies dizziness or lightheadedness. Patient was found to be in pulmonary edema and was started on IV Lasix. Preliminary echocardiogram complet ed in the emergency room reveals ejection fraction 20-25% and moderate aortic stenosis. EKG reveals sinus mechanism with nonspecific changes. First degree AV block. Left axis deviation. Chest xray cardiomegaly with pulmonary venous congestion and scattered infiltrates. Findings may reflect early congestive heart failure although infiltrates and other etiologies are not excluded. Laboratory data: WBC 3.9. Hemoglobin 10.6. Platelet count 337. Sodium 137. Potassium 4.1. BUN 15. Creatinine 0.66. BNP 4420. Troponin 0.063. 0.061. Current home cardiac medications include simvastatin 40 mg daily 11/14/2020 Patient examined this morning at the bedside. Patient is less confused today. Patient denies chest pain or pressure. She denies shortness of breath. Echocardiogram completed revealed ejection fraction 20-25%, global hypokinesis with only inferior lateral wall moving, apex is akinetic, moderate aortic stenosis, mild mitral regurgitation, mild tricuspid regurgitation, and moderate pulmonary hypertension PHYSICAL EXAM: VITAL SIGNS: Reviewed. GENERAL: Well-developed in no acute distress. HEENT: Head is normocephalic. Pupils are equal, round. Sclerae anicteric. Mucous membranes of the mouth are moist. Neck supple. No JVD or thyromegaly LUNGS: Respirations even and unlabored. Lungs diminished bilaterally. HEART: Regular rate and rhythm. S1 and S2 heard. Systolic murmur noted. Heart sounds distant. EXTREMITIES: Normal range of motion. No clubbing or cyanosis. Peripheral pulses intact. Trace bilateral pedal edema ASSESSMENT: Acute systolic heart failure, EF 20-25%, BNP 4420 Moderate aortic stenosis Abnormal troponins, not indicative of myocardial injury Diabetes mellitus Hypertension Former nicotine dependence Morbid obesity, BMI 52.9 PLAN: Continue lasix Daily weights Accurate I&O Monitor kidney function Continue simvastatin, aspirin, lisinopril Increase metoprolol to 25 mg twice a day Patient will require cardiac cath to evaluate for coronary artery disease in the near future secondary to cardiomyopathy. Timing to be determined. Further recommendations pending patient's course Nurse practitioner note has been reviewed by physician. Signing provider agrees with the documented findings, assessment, and plan of care. Objective - Vital Signs Vital signs: Vital Signs Temp 97.6 F 11/14/20 08:33 Pulse 78 11/14/20 08:33 Resp 18 11/14/20 08:33 BP 119/66 11/14/20 08:33 Pulse Ox 97 11/14/20 08:33 Intake & Output 11/13/20 11/14/20 11/14/20 18:59 06:59 18:59 Intake Total 50 10 220 Output Total 150 Balance -100 10 220 Weight 123.1 kg 117.5 kg Intake: IV 10 40 Invasive Line 2 10 Invasive Line 3 40 Oral 50 0 180 Output: Urine 150 Other: Voiding Method Indwelling Catheter External Catheter External Catheter # Voids 3 2 - Labs CBC & Chem 7: 11/14/20 09:13 11/14/20 09:13 Labs: Abnormal Lab Results - Last 24 Hours (Table) 11/13/20 11/13/20 11/13/20 Range/Units 12:26 16:35 21:16 Hgb (11.4-16.0) gm/dL MCHC (31.0-37.0) g/dL RDW (11.5-15.5) % Lymphocytes # (1.0-4.8) k/uL Chloride (98-107) mmol/L Carbon Dioxide (22-30) mmol/L Glucose (74-99) mg/dL POC Glucose (mg/dL) 178 H (75-99) mg/dL Magnesium (1.6-2.3) mg/dL Troponin I 0.061 H* 0.063 H* (0.000-0.034) ng/mL 11/14/20 11/14/20 11/14/20 Range/Units 05:53 09:13 09:13 Hgb 10.3 L (11.4-16.0) gm/dL MCHC 30.2 L (31.0-37.0) g/dL RDW 17.3 H (11.5-15.5) % Lymphocytes # 0.5 L (1.0-4.8) k/uL Chloride 94 L (98-107) mmol/L Carbon Dioxide 39 H (22-30) mmol/L Glucose 173 H (74-99) mg/dL POC Glucose (mg/dL) 139 H (75-99) mg/dL Magnesium 1.5 L (1.6-2.3) mg/dL Troponin I (0.000-0.034) ng/mL 11/14/20 Range/Units 11:33 Hgb (11.4-16.0) gm/dL MCHC (31.0-37.0) g/dL RDW (11.5-15.5) % Lymphocytes # (1.0-4.8) k/uL Chloride (98-107) mmol/L Carbon Dioxide (22-30) mmol/L Glucose (74-99) mg/dL POC Glucose (mg/dL) 210 H (75-99) mg/dL Magnesium (1.6-2.3) mg/dL Troponin I (0.000-0.034) ng/mL
[2020-11-14 16:36] LABS: Glucose,Whole Blood 123 mg/dL (75-99)
[2020-11-14] MEDS ORDERED: Magnesium Replacement Protocol 1 EACH MISC MISCELLANE PRN (18:53)
[2020-11-14] MEDS: MAGNESIUM SULFATE-D5W PMX 1 GM in DEXTROSE/WATER 1 100ML.BAG IVPB SCH ×2 (19:33→21:03)
[2020-11-14 20:21] LABS: Glucose,Whole Blood 218 mg/dL (75-99)
[2020-11-14] MEDS: ATORVASTATIN 20 MG TAB PO SCH (20:57)
[2020-11-14] MEDS: METOPROLOL TARTRATE 25 MG TAB PO SCH (20:58)
[2020-11-14 21:38] LABS: Hemoglobin A1C 11.7 % (4.0-6.0)
[2020-11-15 06:30] LABS: Glucose,Whole Blood 127 mg/dL (75-99)
[2020-11-15] MEDS: INSULIN ASPART (NovoLOG) 100 UNIT/ML VIAL SQ SCH ×6 (06:35→20:50)
[2020-11-15] MEDS: ASPIRIN 81 MG PO SCH (08:33)
[2020-11-15] MEDS: METOPROLOL TARTRATE 25 MG TAB PO SCH ×2 (08:33→20:49)
[2020-11-15] MEDS: ENOXAPARIN 40 MG/0.4 ML SYRINGE SQ SCH (08:34)
[2020-11-15] MEDS: FUROSEMIDE 40 MG TAB PO SCH ×2 (08:34→16:46)
[2020-11-15] MEDS: FAMOTIDINE 20 MG TAB PO SCH (08:34)
[2020-11-15 08:43] LABS: Calcium 8.7 mg/dL (8.4-10.2); Potassium 3.7 mmol/L (3.5-5.1)
[2020-11-15 10:30] VITALS: BMI 46.7
[2020-11-15] MEDS ORDERED: NITROGLYCERIN SL TABS 0.4 MG TAB SUBLINGUAL PRN (11:34)
[2020-11-15] MEDS ORDERED: ALPRAZolam 0.5 MG TAB PO PRN (11:34)
--- NOTE | 2020-11-15 11:53 | P.PN ---
Subjective Progress Note Date: 11/15/20 HISTORY OF PRESENT ILLNESS: 11/13/2020 This is a 85-year-old female with a past medical history significant for diabetes mellitus, hyperlipidemia, and former nicotine dependence. Patient does not follow with a patient scheduling manager. We have been asked to see the patient in consultation for pulmonary edema. Patient examined at the bedside in the emergency room. Patient is currently alert and oriented 1. Patient is unable to give much history. Patient thinks that she is at home at the time of examination. When patient was reoriented and told why she was in the hospital she was unable to tell me why she came to the hospital or who brought her here. Patient currently denies chest pain or pressure. She denies shortness of breath. She denies dizziness or lightheadedness. Patient was found to be in pulmonary edema and was started on IV Lasix. Preliminary echocardiogram complet ed in the emergency room reveals ejection fraction 20-25% and moderate aortic stenosis. EKG reveals sinus mechanism with nonspecific changes. First degree AV block. Left axis deviation. Chest xray cardiomegaly with pulmonary venous congestion and scattered infiltrates. Findings may reflect early congestive heart failure although infiltrates and other etiologies are not excluded. Laboratory data: WBC 3.9. Hemoglobin 10.6. Platelet count 337. Sodium 137. Potassium 4.1. BUN 15. Creatinine 0.66. BNP 4420. Troponin 0.063. 0.061. Current home cardiac medications include simvastatin 40 mg daily 11/14/2020 Patient examined this morning at the bedside. Patient is less confused today. Patient denies chest pain or pressure. She denies shortness of breath. Echocardiogram completed revealed ejection fraction 20-25%, global hypokinesis with only inferior lateral wall moving, apex is akinetic, moderate aortic stenosis, mild mitral regurgitation, mild tricuspid regurgitation, and moderate pulmonary hypertension 11/15/2020 Patient examined this morning at the bedside. Patient denies chest pain or pressure. Denies shortness of breath. Remains on lasix 40mg PO Q8 hours. BUN 21. Creatinine 0.92. Chest x-ray yesterday reveals residual volume overload. PHYSICAL EXAM: VITAL SIGNS: Reviewed. GENERAL: Well-developed in no acute distress. HEENT: Head is normocephalic. Pupils are equal, round. Sclerae anicteric. Mucous membranes of the mouth are moist. Neck supple. No JVD or thyromegaly LUNGS: Respirations even and unlabored. Lungs diminished bilaterally. HEART: Regular rate and rhythm. S1 and S2 heard. Systolic murmur noted. EXTREMITIES: Normal range of motion. No clubbing or cyanosis. Peripheral pulses intact. Trace bilateral pedal edema ASSESSMENT: Acute systolic heart failure, EF 20-25%, BNP 4420 Moderate aortic stenosis Abnormal troponins, not indicative of myocardial injury Diabetes mellitus Hypertension Former nicotine dependence Morbid obesity, BMI 52.9 PLAN: Continue lasix. Change dosing to BID from Q8 hours Daily weights Accurate I&O Monitor kidney function Continue simvastatin, aspirin, lisinopril, and metoprolol Patient to undergo cardiac catheterization with Dr. Montes on 11/18/2000 Further recommendations pending patient's course Nurse practitioner note has been reviewed by physician. Signing provider agrees with the documented findings, assessment, and plan of care. Objective - Vital Signs Vital signs: Vital Signs Temp 98.2 F 11/15/20 07:48 Pulse 80 11/15/20 07:48 Resp 16 11/15/20 08:39 BP 118/66 11/15/20 07:48 Pulse Ox 95 11/15/20 08:39 Intake & Output 11/14/20 11/15/20 11/15/20 18:59 06:59 18:59 Intake Total 710 200 Output Total 400 Balance 310 200 Weight 114 kg 108.5 kg Intake: IV 50 Invasive Line 3 50 Oral 660 200 Output: Urine 400 Other: Voiding Method External Catheter External Catheter External Catheter # Voids 1 - Labs CBC & Chem 7: 11/14/20 09:13 11/15/20 07:16 Labs: Abnormal Lab Results - Last 24 Hours (Table) 11/14/20 11/14/20 11/14/20 Range/Units 09:13 09:13 09:13 Hgb 10.3 L (11.4-16.0) gm/dL MCHC 30.2 L (31.0-37.0) g/dL RDW 17.3 H (11.5-15.5) % Lymphocytes # 0.5 L (1.0-4.8) k/uL Sodium (137-145) mmol/L Chloride 94 L (98-107) mmol/L Carbon Dioxide 39 H (22-30) mmol/L BUN (7-17) mg/dL Glucose 173 H (74-99) mg/dL POC Glucose (mg/dL) (75-99) mg/dL Hemoglobin A1c (4.0-6.0) % Magnesium 1.5 L (1.6-2.3) mg/dL Procalcitonin 0.14 H (0.02-0.09) ng/mL 11/14/20 11/14/20 11/14/20 Range/Units 09:13 11:33 16:35 Hgb (11.4-16.0) gm/dL MCHC (31.0-37.0) g/dL RDW (11.5-15.5) % Lymphocytes # (1.0-4.8) k/uL Sodium (137-145) mmol/L Chloride (98-107) mmol/L Carbon Dioxide (22-30) mmol/L BUN (7-17) mg/dL Glucose (74-99) mg/dL POC Glucose (mg/dL) 210 H 123 H (75-99) mg/dL Hemoglobin A1c 11.7 H (4.0-6.0) % Magnesium (1.6-2.3) mg/dL Procalcitonin (0.02-0.09) ng/mL 11/14/20 11/15/20 11/15/20 Range/Units 20:18 06:08 07:16 Hgb (11.4-16.0) gm/dL MCHC (31.0-37.0) g/dL RDW (11.5-15.5) % Lymphocytes # (1.0-4.8) k/uL Sodium 136 L (137-145) mmol/L Chloride 93 L (98-107) mmol/L Carbon Dioxide 39 H (22-30) mmol/L BUN 21 H (7-17) mg/dL Glucose 127 H (74-99) mg/dL POC Glucose (mg/dL) 218 H 127 H (75-99) mg/dL Hemoglobin A1c (4.0-6.0) % Magnesium (1.6-2.3) mg/dL Procalcitonin (0.02-0.09) ng/mL
[2020-11-15 12:07] LABS: Cholesterol 122 mg/dL (<200); HDL Cholesterol 38 mg/dL (40-60); LDL Cholesterol,Calculated 62 mg/dL (0-99); Triglycerides 109 mg/dL (<150)
[2020-11-15] MEDS: SPIRONOLACTONE 25 MG TAB PO SCH (12:07)
[2020-11-15 12:09] LABS: Glucose,Whole Blood 169 mg/dL (75-99)
--- NOTE | 2020-11-15 12:16 | P.PN ---
Subjective This is a pleasant 85 years old female with past medical history of diabetes mellitus, hyperlipidemia. She does not follow up with PCP who presents because of weakness and dyspnea, she fell from bed yesterday morning. She is a patient of Dr. Isha chavez Patient says that she slipped off her bed when trying to get up without losing consciousness or dizziness, she could not lift herself and she has to wait for her sister to call EMS. She complains from exertional dyspnea but She denies chest pain or coughing. Patient noticed to have some dyspnea while talking No diarrhea or abdominal pain or vomiting. She does not complain from urinary symptoms like no dysuria or change in frequency. She denies smoking, alcohol or illicit tracts She was saturating 87% on room air Unremarkable CBC except for mild anemia at 10.6 hemoglobin, INR is 1.1. Unremarkable basic metabolic panel and liver enzymes. The glucose is elevated at 274 Urine analysis is no suspicious of infection but that shows 3+ glucose. Qiu v is not detected. His troponin is elevated 0.063, proBNP is elevated at 4420 She was already started on Lasix 40 mg every 8 hours and aspirin 325 mg daily EKG showing normal sinus rhythm at [address]-T changes. Chest x-ray: CHF, pneumonia cannot be excluded 11/15/2020 Patient breathing is improving gradually. I discussed the case with cartilage team today and the plan for cardiac cath on Wednesday Other than that her creatinine slightly up to 0.9 today which is still within the reference range. Vitals and labs are reviewed Lasix was switched to 40 mg by mouth twice daily by cardiology team as well. Objective - Vital Signs Vital signs: Vital Signs Temp 98.2 F 11/15/20 07:48 Pulse 80 11/15/20 07:48 Resp 16 11/15/20 08:39 BP 118/66 11/15/20 07:48 Pulse Ox 95 11/15/20 08:39 Intake & Output 11/14/20 11/15/20 11/15/20 18:59 06:59 18:59 Intake Total 710 200 Output Total 400 Balance 310 200 Weight 114 kg 108.5 kg 108.5 kg Intake: IV 50 Invasive Line 3 50 Oral 660 200 Output: Urine 400 Other: Voiding Method External Catheter External Catheter External Catheter # Voids 1 - Exam GENERAL: The patient is alert and oriented x3, not in any acute distress. Well developed, well nourished. HEENT: Pupils are round and equally reacting to light. EOMI. No scleral icterus. No conjunctival pallor. Normocephalic, atraumatic. No pharyngeal erythema. No thyromegaly. CARDIOVASCULAR: S1 and S2 present. No murmurs, rubs, or gallops. -PULMONARY: Chest is clear to auscultation, no wheezing. Mild bilateral basal crepitation ABDOMEN: Soft, nontender, nondistended, normoactive bowel sounds. No palpable organomegaly. MUSCULOSKELETAL: No joint swelling or deformity. -EXTREMITIES: No cyanosis, clubbing,. Mild bilateral pitting leg edema NEUROLOGICAL: Gross neurological examination did not reveal any focal deficits. SKIN: No rashes. no petechiae. - Labs CBC & Chem 7: 11/14/20 09:13 11/15/20 07:16 Labs: Abnormal Lab Results - Last 24 Hours (Table) 11/14/20 11/14/20 11/14/20 Range/Units 09:13 09:13 16:35 Sodium (137-145) mmol/L Chloride (98-107) mmol/L Carbon Dioxide (22-30) mmol/L BUN (7-17) mg/dL Glucose (74-99) mg/dL POC Glucose (mg/dL) 123 H (75-99) mg/dL Hemoglobin A1c 11.7 H (4.0-6.0) % HDL Cholesterol (40-60) mg/dL Procalcitonin 0.14 H (0.02-0.09) ng/mL 11/14/20 11/15/20 11/15/20 Range/Units 20:18 06:08 07:16 Sodium 136 L (137-145) mmol/L Chloride 93 L (98-107) mmol/L Carbon Dioxide 39 H (22-30) mmol/L BUN 21 H (7-17) mg/dL Glucose 127 H (74-99) mg/dL POC Glucose (mg/dL) 218 H 127 H (75-99) mg/dL Hemoglobin A1c (4.0-6.0) % HDL Cholesterol (40-60) mg/dL Procalcitonin (0.02-0.09) ng/mL 11/15/20 11/15/20 Range/Units 07:16 12:07 Sodium (137-145) mmol/L Chloride (98-107) mmol/L Carbon Dioxide (22-30) mmol/L BUN (7-17) mg/dL Glucose (74-99) mg/dL POC Glucose (mg/dL) 169 H (75-99) mg/dL Hemoglobin A1c (4.0-6.0) % HDL Cholesterol 38 L (40-60) mg/dL Procalcitonin (0.02-0.09) ng/mL Assessment and Plan Assessment: New onset acute systolic CHF Elevated troponin, rule out and STEMI. Mostly troponin leak from myocardial injury as per issuing operator Acute hypoxic respiratory failure secondary to above Mechanical fall without loss of consciousness Diabetes mellitus, type II. With hyperglycemia Hyperlipidemia Morbid obesity with BMI 53 Plan: This is a pleasant 85 years old female who presents with acute CHF with ejection fraction less than 20%. Continue with diuretics. Continuous cardiology consult recommendation. Continue with aspirin. Cardiac cath on Saturday 11/18 Labs and medication were reviewed.. Continue same treatment. Continue with symptomatic treatment. Resume home medication. Monitor lytes and vitals. DVT and GI prophylaxis. Further recommendations as per clinical course of the patient DVT prophylaxis: Subcutaneous heparin GI Prophylaxis: Pepcid PT/OT: Pending Prognosis is guarded
[2020-11-15 16:49] LABS: Glucose,Whole Blood 174 mg/dL (75-99)
[2020-11-15 20:04] LABS: Glucose,Whole Blood 222 mg/dL (75-99)
[2020-11-15] MEDS: ATORVASTATIN 20 MG TAB PO SCH (20:49)
[2020-11-15] MEDS: ALPRAZolam 0.25 MG TAB PO PRN (20:50)
[2020-11-16 06:10] LABS: Glucose,Whole Blood 158 mg/dL (75-99)
[2020-11-16] MEDS: INSULIN ASPART (NovoLOG) 100 UNIT/ML VIAL SQ SCH ×7 (07:08→19:52)
[2020-11-16] MEDS: INSULIN DETEMIR (LEVEMIR) 100 UNIT/ML SYR SQ SCH (07:08)
[2020-11-16 07:09] LABS: Glucose,Whole Blood 178 mg/dL (75-99)
[2020-11-16 07:16] LABS: Glucose,Whole Blood 183 mg/dL (75-99)
[2020-11-16 08:14] LABS: Calcium 8.9 mg/dL (8.4-10.2); Potassium 3.9 mmol/L (3.5-5.1)
[2020-11-16] MEDS: ASPIRIN 81 MG PO SCH (08:43)
[2020-11-16] MEDS: FUROSEMIDE 40 MG TAB PO SCH ×2 (08:43→17:07)
[2020-11-16] MEDS: SPIRONOLACTONE 25 MG TAB PO SCH (08:43)
[2020-11-16] MEDS: METOPROLOL TARTRATE 25 MG TAB PO SCH ×2 (08:43→19:52)
[2020-11-16] MEDS: ENOXAPARIN 40 MG/0.4 ML SYRINGE SQ SCH (08:43)
[2020-11-16] MEDS: FAMOTIDINE 20 MG TAB PO SCH (08:43)
--- NOTE | 2020-11-16 10:35 | P.PN ---
Subjective Progress Note Date: 11/16/20 HISTORY OF PRESENT ILLNESS: 11/13/2020 This is a 85-year-old female with a past medical history significant for diabetes mellitus, hyperlipidemia, and former nicotine dependence. Patient does not follow with a set builder. We have been asked to see the patient in consultation for pulmonary edema. Patient examined at the bedside in the emergency room. Patient is currently alert and oriented 1. Patient is unable to give much history. Patient thinks that she is at home at the time of examination. When patient was reoriented and told why she was in the hospital she was unable to tell me why she came to the hospital or who brought her here. Patient currently denies chest pain or pressure. She denies shortness of breath. She denies dizziness or lightheadedness. Patient was found to be in pulmonary edema and was started on IV Lasix. Preliminary echocardiogram complet ed in the emergency room reveals ejection fraction 20-25% and moderate aortic stenosis. EKG reveals sinus mechanism with nonspecific changes. First degree AV block. Left axis deviation. Chest xray cardiomegaly with pulmonary venous congestion and scattered infiltrates. Findings may reflect early congestive heart failure although infiltrates and other etiologies are not excluded. Laboratory data: WBC 3.9. Hemoglobin 10.6. Platelet count 337. Sodium 137. Potassium 4.1. BUN 15. Creatinine 0.66. BNP 4420. Troponin 0.063. 0.061. Current home cardiac medications include simvastatin 40 mg daily 11/14/2020 Patient examined this morning at the bedside. Patient is less confused today. Patient denies chest pain or pressure. She denies shortness of breath. Echocardiogram completed revealed ejection fraction 20-25%, global hypokinesis with only inferior lateral wall moving, apex is akinetic, moderate aortic stenosis, mild mitral regurgitation, mild tricuspid regurgitation, and moderate pulmonary hypertension 11/15/2020 Patient examined this morning at the bedside. Patient denies chest pain or pressure. Denies shortness of breath. Remains on lasix 40mg PO Q8 hours. BUN 21. Creatinine 0.92. Chest x-ray yesterday reveals residual volume overload. 11/16/2020 Patient examined this morning at the bedside. Patient denies chest pain or pressure. She denies shortness of breath at rest. She states she has not been out of bed today. She also states she did not get out of bed yesterday. She remains on oral Lasix 40 mg twice a day. blood pressure 106/61. Heart rate in the 80s. potassium 3.9. Magnesium 2.0. B UN 26. Creatinine 0.73. PHYSICAL EXAM: VITAL SIGNS: Reviewed. GENERAL: Well-developed in no acute distress. HEENT: Head is normocephalic. Pupils are equal, round. Sclerae anicteric. Mucous membranes of the mouth are moist. Neck supple. No JVD or thyromegaly LUNGS: Respirations even and unlabored. Lungs diminished bilaterally. HEART: Regular rate and rhythm. S1 and S2 heard. Soft systolic murmur noted. EXTREMITIES: Normal range of motion. No clubbing or cyanosis. Peripheral pulses intact. trace bilateral lower extremity edema ASSESSMENT: Acute systolic heart failure, EF 20-25%, BNP 4420 Moderate aortic stenosis Abnormal troponins, not indicative of myocardial injury Diabetes mellitus Hypertension Former nicotine dependence Morbid obesity, BMI 52.9 PLAN: Continue lasix Daily weights Accurate I&O Monitor kidney function Continue simvastatin, aspirin, lisinopril, and metoprolol Patient to undergo cardiac catheterization with Dr. Montes on 11/18/2000 Further recommendations pending patient's course Nurse practitioner note has been reviewed by physician. Signing provider agrees with the documented findings, assessment, and plan of care. Objective - Vital Signs Vital signs: Vital Signs Temp 98.1 F 11/16/20 08:00 Pulse 84 11/16/20 08:00 Resp 18 11/16/20 08:00 BP 106/61 11/16/20 08:00 Pulse Ox 93 L 11/16/20 08:00 Intake & Output 11/15/20 11/16/20 11/16/20 18:59 06:59 18:59 Intake Total 450 120 Output Total 750 100 Balance 450 -750 20 Weight 108.5 kg 113 kg Intake: IV 10 Invasive Line 3 10 Oral 440 120 Output: Urine 750 100 Other: Voiding Method External Catheter External Catheter # Voids 1 # Bowel Movements 0 - Labs CBC & Chem 7: 11/14/20 09:13 11/16/20 06:58 Labs: Abnormal Lab Results - Last 24 Hours (Table) 11/15/20 11/15/20 11/15/20 Range/Units 07:16 12:07 16:48 Sodium (137-145) mmol/L Chloride (98-107) mmol/L Carbon Dioxide (22-30) mmol/L BUN (7-17) mg/dL Glucose (74-99) mg/dL POC Glucose (mg/dL) 169 H 174 H (75-99) mg/dL HDL Cholesterol 38 L (40-60) mg/dL 11/15/20 11/16/20 11/16/20 Range/Units 20:03 06:09 06:58 Sodium 136 L (137-145) mmol/L Chloride 94 L (98-107) mmol/L Carbon Dioxide 35 H (22-30) mmol/L BUN 26 H (7-17) mg/dL Glucose 156 H (74-99) mg/dL POC Glucose (mg/dL) 222 H 158 H (75-99) mg/dL HDL Cholesterol (40-60) mg/dL 11/16/20 11/16/20 Range/Units 07:08 07:15 Sodium (137-145) mmol/L Chloride (98-107) mmol/L Carbon Dioxide (22-30) mmol/L BUN (7-17) mg/dL Glucose (74-99) mg/dL POC Glucose (mg/dL) 178 H 183 H (75-99) mg/dL HDL Cholesterol (40-60) mg/dL
[2020-11-16 11:51] LABS: Glucose,Whole Blood 237 mg/dL (75-99)
[2020-11-16 16:39] LABS: Glucose,Whole Blood 148 mg/dL (75-99)
--- NOTE | 2020-11-16 16:55 | P.PN ---
Subjective This is a pleasant 85 years old female with past medical history of diabetes mellitus, hyperlipidemia. She does not follow up with PCP who presents because of weakness and dyspnea, she fell from bed yesterday morning. She is a patient of Dr. Isha chavez Patient says that she slipped off her bed when trying to get up without losing consciousness or dizziness, she could not lift herself and she has to wait for her sister to call EMS. She complains from exertional dyspnea but She denies chest pain or coughing. Patient noticed to have some dyspnea while talking No diarrhea or abdominal pain or vomiting. She does not complain from urinary symptoms like no dysuria or change in frequency. She denies smoking, alcohol or illicit tracts She was saturating 87% on room air Unremarkable CBC except for mild anemia at 10.6 hemoglobin, INR is 1.1. Unremarkable basic metabolic panel and liver enzymes. The glucose is elevated at 274 Urine analysis is no suspicious of infection but that shows 3+ glucose. Qiu v is not detected. His troponin is elevated 0.063, proBNP is elevated at 4420 She was already started on Lasix 40 mg every 8 hours and aspirin 325 mg daily EKG showing normal sinus rhythm at [address]-T changes. Chest x-ray: CHF, pneumonia cannot be excluded 11/15/2020 Patient breathing is improving gradually. I discussed the case with cartilage team today and the plan for cardiac cath on Wednesday Other than that her creatinine slightly up to 0.9 today which is still within the reference range. Vitals and labs are reviewed Lasix was switched to 40 mg by mouth twice daily by cardiology team as well. 11/16/2020 Patient is doing well clinically with no chest pain or dyspnea but she stent in bed most of the time. She remains on oral Eliquis 40 mg twice daily. Hemoglobin A1c is elevated 11.3 and she was placed on Levemir 5 units at bedtime and 30 units with meals. Her glucose is 140-240 units going to increase insulin with meals to 5 units, BMP and magnesium were stable. Ohcalcitonin is trending down. Patient is planned for cardiac cath on Wednesday Objective - Vital Signs Vital signs: Vital Signs Temp 99.6 F 11/16/20 12:00 Pulse 77 11/16/20 12:00 Resp 16 11/16/20 12:00 BP 107/51 11/16/20 12:00 Pulse Ox 99 11/16/20 12:00 Intake & Output 11/15/20 11/16/20 11/16/20 18:59 06:59 18:59 Intake Total 450 240 Output Total 750 100 Balance 450 -750 140 Weight 108.5 kg 113 kg Intake: IV 10 Invasive Line 3 10 Oral 440 240 Output: Urine 750 100 Other: Voiding Method External Catheter External Catheter External Catheter # Voids 1 # Bowel Movements 0 - Exam GENERAL: The patient is alert and oriented x3, not in any acute distress. Well developed, well nourished. HEENT: Pupils are round and equally reacting to light. EOMI. No scleral icterus. No conjunctival pallor. Normocephalic, atraumatic. No pharyngeal erythema. No thyromegaly. CARDIOVASCULAR: S1 and S2 present. No murmurs, rubs, or gallops. -PULMONARY: Chest is clear to auscultation, no wheezing. Mild bilateral basal crepitation ABDOMEN: Soft, nontender, nondistended, normoactive bowel sounds. No palpable organomegaly. MUSCULOSKELETAL: No joint swelling or deformity. -EXTREMITIES: No cyanosis, clubbing,. Mild bilateral pitting leg edema NEUROLOGICAL: Gross neurological examination did not reveal any focal deficits. SKIN: No rashes. no petechiae. - Labs CBC & Chem 7: 11/14/20 09:13 11/16/20 06:58 Labs: Abnormal Lab Results - Last 24 Hours (Table) 11/15/20 11/15/20 11/16/20 Range/Units 16:48 20:03 06:09 Sodium (137-145) mmol/L Chloride (98-107) mmol/L Carbon Dioxide (22-30) mmol/L BUN (7-17) mg/dL Glucose (74-99) mg/dL POC Glucose (mg/dL) 174 H 222 H 158 H (75-99) mg/dL Procalcitonin (0.02-0.09) ng/mL 11/16/20 11/16/20 11/16/20 Range/Units 06:58 06:58 07:08 Sodium 136 L (137-145) mmol/L Chloride 94 L (98-107) mmol/L Carbon Dioxide 35 H (22-30) mmol/L BUN 26 H (7-17) mg/dL Glucose 156 H (74-99) mg/dL POC Glucose (mg/dL) 178 H (75-99) mg/dL Procalcitonin 0.11 H (0.02-0.09) ng/mL 11/16/20 11/16/20 Range/Units 07:15 11:50 Sodium (137-145) mmol/L Chloride (98-107) mmol/L Carbon Dioxide (22-30) mmol/L BUN (7-17) mg/dL Glucose (74-99) mg/dL POC Glucose (mg/dL) 183 H 237 H (75-99) mg/dL Procalcitonin (0.02-0.09) ng/mL Assessment and Plan Assessment: New onset acute systolic CHF Elevated troponin, rule out and STEMI. Mostly troponin leak from myocardial injury as per freight sorter Acute hypoxic respiratory failure secondary to above Mechanical fall without loss of consciousness Diabetes mellitus, type II. With hyperglycemia Hyperlipidemia Morbid obesity with BMI 53 Plan: This is a pleasant 85 years old female who presents with acute CHF with ejection fraction less than 20%. Continue with diuretics. Continuous cardiology consult recommendation. Continue with aspirin. Cardiac cath on Saturday 11/18 Labs and medication were reviewed.. Continue same treatment. Continue with symptomatic treatment. Resume home medication. Monitor lytes and vitals. DVT and GI prophylaxis. Further recommendations as per clinical course of the patient DVT prophylaxis: Subcutaneous heparin GI Prophylaxis: Pepcid PT/OT: Pending Prognosis is guarded
[2020-11-16 19:49] LABS: Glucose,Whole Blood 186 mg/dL (75-99)
[2020-11-16] MEDS: ATORVASTATIN 20 MG TAB PO SCH (19:52)
[2020-11-16] MEDS: ALPRAZolam 0.25 MG TAB PO PRN (19:52)
[2020-11-17 07:05] LABS: Glucose,Whole Blood 133 mg/dL (75-99)
[2020-11-17] MEDS: INSULIN DETEMIR (LEVEMIR) 100 UNIT/ML SYR SQ SCH (07:09)
[2020-11-17] MEDS: INSULIN ASPART (NovoLOG) 100 UNIT/ML VIAL SQ SCH ×7 (07:10→20:36)
[2020-11-17] MEDS: FAMOTIDINE 20 MG TAB PO SCH (08:30)
[2020-11-17] MEDS: FUROSEMIDE 40 MG TAB PO SCH ×2 (08:30→15:44)
[2020-11-17] MEDS: METOPROLOL TARTRATE 25 MG TAB PO SCH ×2 (08:30→20:06)
[2020-11-17] MEDS: ENOXAPARIN 40 MG/0.4 ML SYRINGE SQ SCH (08:30)
[2020-11-17] MEDS: ASPIRIN 81 MG PO SCH (08:30)
[2020-11-17] MEDS: SPIRONOLACTONE 25 MG TAB PO SCH (08:30)
[2020-11-17 11:59] LABS: Glucose,Whole Blood 156 mg/dL (75-99)
--- NOTE | 2020-11-17 12:17 | P.PN ---
Subjective Progress Note Date: 11/17/20 HISTORY OF PRESENT ILLNESS: 11/13/2020 This is a 85-year-old female with a past medical history significant for diabetes mellitus, hyperlipidemia, and former nicotine dependence. Patient does not follow with a teacher asst. We have been asked to see the patient in consultation for pulmonary edema. Patient examined at the bedside in the emergency room. Patient is currently alert and oriented 1. Patient is unable to give much history. Patient thinks that she is at home at the time of examination. When patient was reoriented and told why she was in the hospital she was unable to tell me why she came to the hospital or who brought her here. Patient currently denies chest pain or pressure. She denies shortness of breath. She denies dizziness or lightheadedness. Patient was found to be in pulmonary edema and was started on IV Lasix. Preliminary echocardiogram complet ed in the emergency room reveals ejection fraction 20-25% and moderate aortic stenosis. EKG reveals sinus mechanism with nonspecific changes. First degree AV block. Left axis deviation. Chest xray cardiomegaly with pulmonary venous congestion and scattered infiltrates. Findings may reflect early congestive heart failure although infiltrates and other etiologies are not excluded. Laboratory data: WBC 3.9. Hemoglobin 10.6. Platelet count 337. Sodium 137. Potassium 4.1. BUN 15. Creatinine 0.66. BNP 4420. Troponin 0.063. 0.061. Current home cardiac medications include simvastatin 40 mg daily 11/14/2020 Patient examined this morning at the bedside. Patient is less confused today. Patient denies chest pain or pressure. She denies shortness of breath. Echocardiogram completed revealed ejection fraction 20-25%, global hypokinesis with only inferior lateral wall moving, apex is akinetic, moderate aortic stenosis, mild mitral regurgitation, mild tricuspid regurgitation, and moderate pulmonary hypertension 11/15/2020 Patient examined this morning at the bedside. Patient denies chest pain or pressure. Denies shortness of breath. Remains on lasix 40mg PO Q8 hours. BUN 21. Creatinine 0.92. Chest x-ray yesterday reveals residual volume overload. 11/16/2020 Patient examined this morning at the bedside. Patient denies chest pain or pressure. She denies shortness of breath at rest. She states she has not been out of bed today. She also states she did not get out of bed yesterday. She remains on oral Lasix 40 mg twice a day. blood pressure 106/61. Heart rate in the 80s. potassium 3.9. Magnesium 2.0. BUN 26. Creatinine 0.73. 11/17/2020 Patient examined this morning the bedside. Patient denies chest pain or pressure. She denies shortness of breath. Patient has not been getting out of bed and ambulating a lot. Her vital signs are stable. PHYSICAL EXAM: VITAL SIGNS: Reviewed. GENERAL: Well-developed in no acute distress. HEENT: Head is normocephalic. Pupils are equal, round. Sclerae anicteric. Mucous membranes of the mouth are moist. Neck supple. No JVD or thyromegaly LUNGS: Respirations even and unlabored. Lungs diminished bilaterally. HEART: Regular rate and rhythm. S1 and S2 heard. Soft systolic murmur noted. EXTREMITIES: Normal range of motion. No clubbing or cyanosis. Peripheral pulses intact. trace bilateral lower extremity edema ASSESSMENT: Acute systolic heart failure, EF 20-25%, BNP 4420 Moderate aortic stenosis Abnormal troponins, not indicative of myocardial injury Diabetes mellitus Hypertension Former nicotine dependence Morbid obesity, BMI 52.9 PLAN: Continue lasix and Aldactone Daily weights Accurate I&O Monitor kidney function Continue simvastatin, aspirin, lisinopril, and metoprolol Patient to undergo cardiac catheterization with Dr. Montes on 11/18/2000 Further recommendations pending patient's course Nurse practitioner note has been reviewed by physician. Signing provider agrees with the documented findings, assessment, and plan of care. Objective - Vital Signs Vital signs: Vital Signs Temp 98.0 F 11/17/20 12:00 Pulse 70 11/17/20 12:00 Resp 20 11/17/20 08:00 BP 117/59 11/17/20 12:00 Pulse Ox 98 11/17/20 12:00 Intake & Output 11/16/20 11/17/20 11/17/20 18:59 06:59 18:59 Intake Total 360 50 120 Output Total 100 400 Balance 260 -350 120 Weight 112.7 kg Intake: Oral 360 50 120 Output: Urine 100 400 Other: Voiding Method External Catheter External Catheter External Catheter # Voids 1 # Bowel Movements 0 - Labs CBC & Chem 7: 11/14/20 09:13 11/16/20 06:58 Labs: Abnormal Lab Results - Last 24 Hours (Table) 11/16/20 11/16/20 11/17/20 Range/Units 16:38 19:48 07:03 POC Glucose (mg/dL) 148 H 186 H 133 H (75-99) mg/dL 11/17/20 Range/Units 11:58 POC Glucose (mg/dL) 156 H (75-99) mg/dL
--- NOTE | 2020-11-17 14:10 | P.PN ---
Subjective This is a pleasant 85 years old female with past medical history of diabetes mellitus, hyperlipidemia. She does not follow up with PCP who presents because of weakness and dyspnea, she fell from bed yesterday morning. She is a patient of Dr. Isha chavez Patient says that she slipped off her bed when trying to get up without losing consciousness or dizziness, she could not lift herself and she has to wait for her sister to call EMS. She complains from exertional dyspnea but She denies chest pain or coughing. Patient noticed to have some dyspnea while talking No diarrhea or abdominal pain or vomiting. She does not complain from urinary symptoms like no dysuria or change in frequency. She denies smoking, alcohol or illicit tracts She was saturating 87% on room air Unremarkable CBC except for mild anemia at 10.6 hemoglobin, INR is 1.1. Unremarkable basic metabolic panel and liver enzymes. The glucose is elevated at 274 Urine analysis is no suspicious of infection but that shows 3+ glucose. Qiu v is not detected. His troponin is elevated 0.063, proBNP is elevated at 4420 She was already started on Lasix 40 mg every 8 hours and aspirin 325 mg daily EKG showing normal sinus rhythm at [address]-T changes. Chest x-ray: CHF, pneumonia cannot be excluded 11/15/2020 Patient breathing is improving gradually. I discussed the case with cartilage team today and the plan for cardiac cath on Wednesday Other than that her creatinine slightly up to 0.9 today which is still within the reference range. Vitals and labs are reviewed Lasix was switched to 40 mg by mouth twice daily by cardiology team as well. 11/16/2020 Patient is doing well clinically with no chest pain or dyspnea but she stent in bed most of the time. She remains on oral Eliquis 40 mg twice daily. Hemoglobin A1c is elevated 11.3 and she was placed on Levemir 3 units at bedtime and 5 units with meals. Her glucose is 140-240 units going to increase insulin with meals to 5 units, BMP and magnesium were stable. Ohcalcitonin is trending down. Patient is planned for cardiac cath on Wednesday11/17/2020 Patient resting comfortably in bed, no specific complaint. Vitals and labs are stable, sugar controlled, continue with same medication of nitish Zhang and Lasix Patient is scheduled for cardiac cath tomorrow with Dr. Montes Objective - Vital Signs Vital signs: Vital Signs Temp 98.0 F 11/17/20 12:00 Pulse 70 11/17/20 12:00 Resp 20 11/17/20 08:00 BP 117/59 11/17/20 12:00 Pulse Ox 98 11/17/20 12:00 Intake & Output 11/16/20 11/17/20 11/17/20 18:59 06:59 18:59 Intake Total 360 50 120 Output Total 100 400 Balance 260 -350 120 Weight 112.7 kg Intake: Oral 360 50 120 Output: Urine 100 400 Other: Voiding Method External Catheter External Catheter External Catheter # Voids 1 # Bowel Movements 0 - Exam GENERAL: The patient is alert and oriented x3, not in any acute distress. Well developed, well nourished. HEENT: Pupils are round and equally reacting to light. EOMI. No scleral icterus. No conjunctival pallor. Normocephalic, atraumatic. No pharyngeal erythema. No thyromegaly. CARDIOVASCULAR: S1 and S2 present. No murmurs, rubs, or gallops. -PULMONARY: Chest is clear to auscultation, no wheezing. Mild bilateral basal crepitation ABDOMEN: Soft, nontender, nondistended, normoactive bowel sounds. No palpable organomegaly. MUSCULOSKELETAL: No joint swelling or deformity. -EXTREMITIES: No cyanosis, clubbing,. Mild bilateral pitting leg edema NEUROLOGICAL: Gross neurological examination did not reveal any focal deficits. SKIN: No rashes. no petechiae. - Labs CBC & Chem 7: 11/14/20 09:13 11/16/20 06:58 Labs: Abnormal Lab Results - Last 24 Hours (Table) 11/16/20 11/16/20 11/17/20 Range/Units 16:38 19:48 07:03 POC Glucose (mg/dL) 148 H 186 H 133 H (75-99) mg/dL 11/17/20 Range/Units 11:58 POC Glucose (mg/dL) 156 H (75-99) mg/dL Assessment and Plan Assessment: New onset acute systolic CHF Elevated troponin, rule out and STEMI. Mostly troponin leak from myocardial injury as per welfare interviewer Acute hypoxic respiratory failure secondary to above Mechanical fall without loss of consciousness Diabetes mellitus, type II. With hyperglycemia Hyperlipidemia Morbid obesity with BMI 53 Plan: This is a pleasant 85 years old female who presents with acute CHF with ejection fraction less than 20%. Continue with diuretics. Continuous cardiology consult recommendation. Continue with aspirin. Cardiac cath on Saturday 11/18 Labs and medication were reviewed.. Continue same treatment. Continue with symptomatic treatment. Resume home medication. Monitor lytes and vitals. DVT and GI prophylaxis. Further recommendations as per clinical course of the patient DVT prophylaxis: Subcutaneous heparin GI Prophylaxis: Pepcid PT/OT: Pending Prognosis is guarded
[2020-11-17] MEDS ORDERED: NITROGLYCERIN SL TABS 0.4 MG TAB SUBLINGUAL PRN (16:02)
[2020-11-17] MEDS ORDERED: ALPRAZolam 0.25 MG TAB PO PRN (16:02)
[2020-11-17] MEDS ORDERED: SODIUM CHLORIDE 0.9% 1,000 ML in EMPTY BAG 1 BAG IV ONE (16:02)
[2020-11-17 16:53] LABS: Glucose,Whole Blood 193 mg/dL (75-99)
[2020-11-17] MEDS: ALPRAZolam 0.5 MG TAB PO PRN (20:06)
[2020-11-17] MEDS: ATORVASTATIN 20 MG TAB PO SCH (20:06)
[2020-11-17 20:59] LABS: Glucose,Whole Blood 140 mg/dL (75-99)
[2020-11-18] MEDS ORDERED: SODIUM CHLORIDE 0.9% 1,000 ML in EMPTY BAG 1 BAG IV ONE
[2020-11-18] MEDS: ALPRAZolam 0.5 MG TAB PO PRN ×2 (01:52→14:23)
[2020-11-18] MEDS: ASPIRIN 81 MG PO SCH (04:36)
[2020-11-18] MEDS: SPIRONOLACTONE 25 MG TAB PO SCH (06:35)
[2020-11-18] MEDS: METOPROLOL TARTRATE 25 MG TAB PO SCH ×2 (06:35→22:50)
[2020-11-18] MEDS: FAMOTIDINE 20 MG TAB PO SCH (06:35)
[2020-11-18] MEDS: ENOXAPARIN 40 MG/0.4 ML SYRINGE SQ SCH (06:35)
[2020-11-18] MEDS: FUROSEMIDE 40 MG TAB PO SCH ×2 (06:38→16:44)
[2020-11-18 06:40] LABS: Glucose,Whole Blood 138 mg/dL (75-99)
[2020-11-18] MEDS ORDERED: ATORVASTATIN 80 MG TAB PO ONE ×2 (07:00)
[2020-11-18] MEDS ORDERED: ASPIRIN 325 MG TAB PO ONE ×2 (07:00)
[2020-11-18] MEDS ORDERED: HEPARIN SODIUM,PORCINE 10,000 UNIT in SODIUM CHLORIDE 0.9% 1,000 ML IRRIGATION PRN ×4 (07:00)
[2020-11-18] MEDS ORDERED: HEPARIN SODIUM,PORCINE 2,500 UNIT in SODIUM CHLORIDE 0.9% 250 ML IRRIGATION PRN ×4 (07:00)
[2020-11-18] MEDS: INSULIN ASPART (NovoLOG) 100 UNIT/ML VIAL SQ SCH ×7 (08:54→22:50)
[2020-11-18 09:07] LABS: African American GFR (CKD) >90 (>60 ml/min/1.73 sqM); Anion Gap 6 mmol/L; Blood Urea Nitrogen 27 mg/dL (7-17); Calcium 9.2 mg/dL (8.4-10.2); Carbon Dioxide 38 mmol/L (22-30); Chloride 93 mmol/L (98-107); Glucose 147 mg/dL (74-99); Non-African American GFR(CKD) 81 (>60 ml/min/1.73 sqM); Potassium 4.3 mmol/L (3.5-5.1); Sodium 137 mmol/L (137-145)
[2020-11-18] MEDS ORDERED: LIDOCAINE 1% INJ 10MG/ML (20 ML MDV) ONE ×2 (09:07→10:28)
[2020-11-18] MEDS ORDERED: VERAPAMIL 2.5 MG/ML 2 ML AMP ONE (09:07)
[2020-11-18] MEDS ORDERED: IV FLUID CONTINUATION 1,000 ML IV ONE ×2 (09:14)
[2020-11-18] MEDS ORDERED: LIDOCAINE 1% INJ 10MG/ML (20 ML MDV) SQ ONE ×2 (09:52→10:31)
[2020-11-18] MEDS ORDERED: fentaNYL (PF) 50 MCG/ML 2 ML AMP ONE (09:53)
[2020-11-18] MEDS ORDERED: fentaNYL (PF) 50 MCG/ML 2 ML AMP IV ONE (09:55)
[2020-11-18] MEDS ORDERED: FUROSEMIDE 10 MG/ML 4 ML VIAL ONE (10:01)
[2020-11-18] MEDS ORDERED: FUROSEMIDE 10 MG/ML 4 ML VIAL IV ONE (10:05)
[2020-11-18] MEDS ORDERED: MORPHINE SULFATE 4 MG/ML SYRINGE ONE (10:29)
[2020-11-18] MEDS ORDERED: MORPHINE SULFATE 4MG/4ML SYRG IV ONE (10:31)
[2020-11-18] MEDS ORDERED: HEPARIN SODIUM 1,000 UN/ML (10ML VL) ONE ×2 (10:34→11:22)
[2020-11-18] MEDS ORDERED: niCARdipine 25 MG/10 ML VIAL ONE (10:50)
[2020-11-18] MEDS ORDERED: IOPAMIDOL-370 125ML BTL INJ ONE (11:12)
[2020-11-18] MEDS ORDERED: TICAGRELOR 90 MG TAB ONE (11:44)
[2020-11-18] MEDS ORDERED: IOPAMIDOL-370 100ML BTL INJ ONE (11:45)
[2020-11-18] MEDS ORDERED: TICAGRELOR 90 MG TAB PO ONE (11:45)
[2020-11-18] MEDS ORDERED: RX INFO: IV CONTRAST WAS GIVEN 1 EACH MISC MISCELLANE PRN (11:53)
[2020-11-18] MEDS ORDERED: MAG HYDROX/AL HYDROX/SIMETH 30 ML CUP PO PRN (11:53)
[2020-11-18] MEDS ORDERED: NITROGLYCERIN SL TABS 0.4 MG TAB SUBLINGUAL PRN (11:53)
[2020-11-18] MEDS ORDERED: ATROPINE SULFATE 0.1 MG/ML 10ML SYRINGE IV PRN (11:53)
[2020-11-18] MEDS ORDERED: SODIUM CHLORIDE 0.9% 1,000 ML IV SCH (12:00)
[2020-11-18 12:24] LABS: Glucose,Whole Blood 160 mg/dL (75-99)
--- NOTE | 2020-11-18 12:36 | CC ---
CARDIAC CATHETERIZATION REPORT CARDIAC CATHETERIZATION AND PERCUTANEOUS CORONARY INTERVENTION: DATE OF SERVICE: November 18, 2020. PERFORMING PHYSICIAN: Francisco Montes MD. PROCEDURE PERFORMED: 1. Successful placement of Impella CP in the left ventricle from right groin approach. 2. Successful stenting of the ostial and proximal left anterior descending artery using 3.0 x 15 mm Xience drug-eluting stent which was postdilated using 3.5 mm balloon with an excellent angiographic results and reduction of stenosis from 99.9% to 0%. 3. Selective right and left coronary angiogram. 4. Selective bilateral common femoral arteries angiogram. INDICATION: This is an 85-year-old female patient who was admitted to the hospital with chest discomfort and shortness of breath. She underwent an echocardiogram and that revealed severe cardiomyopathy with EF around 15% with wall motion abnormalities concerning for severe underlying coronary artery disease and the patient was diagnosed with ischemic cardiomyopathy. She was seen by Dr. Álvarez who talked to the patient about a heart catheterization. The patient stated that she does not want an open heart surgery if she need to have revascularization. APPROACH: Right and left common femoral arteries. COMPLICATION: None. LEVEL OF SEDATION: Moderate with sedation length of 2 hours. PROCEDURE DESCRIPTION: After obtaining an informed consent, the patient was brought to the cardiac freezer laboratory technician. The right common femoral artery was cannulated using micropuncture technique and the micropuncture wire passed easily then I placed a 6-Comoran sheath 11 cm at the right common femoral artery. I did perform selective right and left coronary angiogram with Erich right for the right coronary artery and JL4 for the left coronary system. After that I did left heart catheterization using 6-Comoran pigtail catheter. After that and after speaking with the family as well as with Dr. Álvarez again, we decided to intervene on the LAD. Please see a separate paragraph for that. SELECTIVE CORONARY ANGIOGRAM: 1. The right coronary artery is a moderate caliber vessel and a nondominant vessel. It is angiographically normal. 2. The left main is a large caliber vessel. It is mildly calcified. It does have mild disease only. It bifurcates into LCX and LAD. 3. The left circumflex is a large caliber vessel and it is a dominant vessel. The proximal left circumflex is angiographically normal. It gives rise into the first obtuse marginal branch, which is a moderate caliber vessel, seems to be angiographically normal. Also gives rise into a second obtuse marginal branch which appeared to have mild disease only. The mid left circumflex and distal left circumflex is angiographically normal. The left circumflex bifurcates into PDA and PLV branches both appeared to be angiographically normal. 4. The LAD: The ostial LAD by the takeoff from the left main has a plaque with a thrombus formation and the plaque appeared to be in the range of 99.9%. The proximal LAD after that has mild to moderate disease only. The mid LAD has mild disease only as well and gives rise into a medium-sized diagonal branch which has an ostial lesion appeared to be in the range of 50%. HEMODYNAMIC: The LVEDP was 24 mmHg with peak to peak gradient across the valve of 20 mmHg as well. IMPELLA PLACEMENT AND PCI OF THE LAD: After performing selective right common femoral artery angiogram, I did place 2 Perclose at 10 o'clock and 2 o'clock. Of course, at that point, anticoagulation was initiated using heparin. After that I did upgrade my 6-Comoran sheath into 13-Comoran sheath using 0.035 stiff wire. Subsequently, the sheath was flushed. After that, I did access the left common femoral artery using micropuncture technique, and I placed an 11 cm 6-Comoran sheath at the left common femoral artery. After that, after ensuring the ACT was therapeutic, I did cross the right left ventricle from the right groin using 0.035 pigtail catheter. I did exchange my 0.035 wire for a 0.018 Impella wire which was left in the left ventricle at the apical area. After that the Impella was advanced over the 0.018 wire to the left ventricle where the position was confirmed under fluoroscopic guidance as well as hemodynamically. Subsequently from the left groin, I did engage the left main using JL4 guide. I did wire the left circumflex using run-through wire and I did wire the LAD using a run- through wire as well. PTCA ballooning was performed using 2.5 x 12 mm balloon before I deployed 3.0 x 15 mm Xience drug-eluting stent where the stent was positioned under fluoroscopy guidance and deployed under 12 atmospheres for 20 seconds. I postdilated the stent using 3.5 mm NC balloon. The following angiogram showed good angiographic results and the procedure was completed without any complication. CONCLUSION: 1. Severe ischemic cardiomyopathy in this 85-year-old female patient with hypertension and dyslipidemia who was admitted to the hospital with chest discomfort and shortness of breath. 2. Critical disease involving very high risk for thrombotic lesion involving the ostial left anterior descending artery, right from the takeoff from the left main. 3. Mild disease involving the left circumflex coronary system. 4. Nondominant right coronary artery. 5. Elevated left ventricular end-diastolic pressure. 6. Successful stenting of the ostial and proximal LAD as described above with adjunctive use of Impella. POSTPROCEDURE MANAGEMENT: 1. Monitor the right and left groin very closely. 2. Aggressive cholesterol control. 3. Dual anti-platelet therapy. 4. Risk factor modifications. 5. Follow up with the patient. MMODL / IJN: [id number] /
--- NOTE | 2020-11-18 12:46 | P.PN ---
Subjective This is a pleasant 85 years old female with past medical history of diabetes mellitus, hyperlipidemia. She does not follow up with PCP who presents because of weakness and dyspnea, she fell from bed yesterday morning. She is a patient of Dr. Isha chavez Patient says that she slipped off her bed when trying to get up without losing consciousness or dizziness, she could not lift herself and she has to wait for her sister to call EMS. She complains from exertional dyspnea but She denies chest pain or coughing. Patient noticed to have some dyspnea while talking No diarrhea or abdominal pain or vomiting. She does not complain from urinary symptoms like no dysuria or change in frequency. She denies smoking, alcohol or illicit tracts She was saturating 87% on room air Unremarkable CBC except for mild anemia at 10.6 hemoglobin, INR is 1.1. Unremarkable basic metabolic panel and liver enzymes. The glucose is elevated at 274 Urine analysis is no suspicious of infection but that shows 3+ glucose. Qiu v is not detected. His troponin is elevated 0.063, proBNP is elevated at 4420 She was already started on Lasix 40 mg every 8 hours and aspirin 325 mg daily EKG showing normal sinus rhythm at [address]-T changes. Chest x-ray: CHF, pneumonia cannot be excluded 11/15/2020 Patient breathing is improving gradually. I discussed the case with cartilage team today and the plan for cardiac cath on Wednesday Other than that her creatinine slightly up to 0.9 today which is still within the reference range. Vitals and labs are reviewed Lasix was switched to 40 mg by mouth twice daily by cardiology team as well. 11/16/2020 Patient is doing well clinically with no chest pain or dyspnea but she stent in bed most of the time. She remains on oral Eliquis 40 mg twice daily. Hemoglobin A1c is elevated 11.3 and she was placed on Levemir 3 units at bedtime and 5 units with meals. Her glucose is 140-240 units going to increase insulin with meals to 5 units, BMP and magnesium were stable. Ohcalcitonin is trending down. Patient is planned for cardiac cath on Wednesday11/17/2020 Patient resting comfortably in bed, no specific complaint. Vitals and labs are stable, sugar controlled, continue with same medication of nitish Zhang and Lasix Patient is scheduled for cardiac cath tomorrow with Dr. Montes 11/18/2020 Patient is going for stress test today Family at bedside and their questions were answered. Patient underwent left heart catheterization and possible PCI, it looks like after the procedure patient went to the ICU, Final report of the cardiac cath is pending Vitals are stable this morning, blood pressure 116/63, heart rate 77, breathing rate 20 and she is saturating 92% on 2 L. And she is afebrile.. BMP is unremarkable. It looks like patient was started on brillinta . Patient is also on aspirin Patient has some risk from this procedure but benefits more than risks Review of systems CONSTITUTIONAL: No fever, no malaise, no fatigue. HEENT: No recent visual problems or hearing problems. Denied any sore throat. CARDIOVASCULAR: No orthopnea, PND, no palpitations, no syncope. PULMONARY: No shortness of breath, no cough, no hemoptysis. GASTROINTESTINAL: No diarrhea, no nausea, no vomiting, no abdominal pain. Normoactive bowel sounds. NEUROLOGICAL: No headaches, no weakness, no numbness. Active Medications Generic Name Dose Route Start Last Admin Trade Name Freq PRN Reason Stop Dose Admin Al Hydroxide/Mg Hydroxide 30 ml 11/18/20 11:53 Mag Hydrox/Al Hydrox/Simeth 30 Ml Cup PO Q4HR PRN Heartburn Alprazolam 0.25 mg 11/17/20 16:02 Alprazolam 0.25 Mg Tab PO Q6HR PRN Mild Anxiety Alprazolam 0.5 mg 11/17/20 16:02 11/18/20 01:52 Alprazolam 0.5 Mg Tab PO 0.5 mg Q6HR PRN Administration Moderate Anxiety Aspirin 81 mg 11/14/20 09:00 11/18/20 04:36 Aspirin 81 Mg PO Not Given DAILY FELICIA Atorvastatin Calcium 20 mg 11/13/20 21:00 11/17/20 20:06 Atorvastatin 20 Mg Tab PO 20 mg HS FELICIA Administration Atropine Sulfate 0.5 mg 11/18/20 11:53 Atropine Sulfate 0.1 Mg/Ml 10ml Syringe IV ONCE PRN Symptomatic Bradycardia Enoxaparin Sodium 40 mg 11/14/20 09:00 11/18/20 06:35 Enoxaparin 40 Mg/0.4 Ml Syringe SQ 40 mg DAILY FELICIA Administration Famotidine 20 mg 11/15/20 09:00 11/18/20 06:35 Famotidine 20 Mg Tab PO 20 mg DAILY FELICIA Administration Furosemide 40 mg 11/15/20 16:00 11/18/20 06:38 Furosemide 40 Mg Tab PO 40 mg BID@0900,1600 FELICIA Administration Heparin Sodium (Porcine) 10, 1,001 mls @ 999 mls/hr 11/18/20 07:00 000 unit/ Sodium Chloride IRRIGATION 11/18/20 23:00 ONCE PRN INTRA-OP Heparin Sodium (Porcine) 2,500 250.5 mls @ 250 mls/hr 11/18/20 07:00 unit/ Sodium Chloride IRRIGATION 11/18/20 23:00 ONCE PRN INTRA-OP Sodium Chloride 1,000 mls @ 75 mls/hr 11/18/20 12:00 Saline 0.9% IV 11/18/20 18:01 .[id number] [facility] Insulin Aspart 0 unit 11/13/20 21:00 11/18/20 08:54 Insulin Aspart (Novolog) 100 Unit/Ml Vial SQ Not Given ACHS [facility] Protocol Insulin Aspart 5 unit 11/16/20 17:30 11/18/20 08:54 Insulin Aspart (Novolog) 100 Unit/Ml Vial SQ Not Given AC-TID [facility] Insulin Detemir 5 unit 11/16/20 07:00 11/17/20 07:09 Insulin Detemir (Levemir) 100 Unit/Ml Syr SQ 5 unit DAILY@0700 FELICIA Administration Lisinopril 2.5 mg 11/14/20 09:00 11/18/20 06:35 Lisinopril 2.5 Mg Tab PO 2.5 mg DAILY [facility] Administration Metoprolol Tartrate 25 mg 11/14/20 21:00 11/18/20 06:35 Metoprolol Tartrate 25 Mg Tab PO 25 mg BID FELICIA Administration Miscellaneous Information 1 each 11/14/20 18:53 Magnesium Replacement Protocol 1 Each [facility] MISCELLANE DAILY PRN Per Protocol Protocol Miscellaneous Information 1 each 11/18/20 11:53 Rx Info: Iv Contrast Was Given 1 Each [facility] MISCELLANE 11/20/20 11:53 DAILY PRN Per Protocol Nitroglycerin 0.4 mg 11/17/20 16:02 Nitroglycerin Sl Tabs 0.4 Mg Tab SUBLINGUAL Q5M PRN Chest Pain Spironolactone 25 mg 11/15/20 10:30 11/18/20 06:35 Spironolactone 25 Mg Tab PO 25 mg DAILY FELICIA Administration Ticagrelor 90 mg 11/18/20 21:00 Ticagrelor 90 Mg Tab PO BID FELICIA Zolpidem Tartrate 5 mg 11/18/20 11:53 Zolpidem 5 Mg Tab PO HS PRN Insomnia Objective - Vital Signs Vital signs: Vital Signs Temp 98.8 F 11/18/20 08:00 Pulse 77 11/18/20 08:00 Resp 20 11/18/20 08:00 BP 116/63 11/18/20 08:00 Pulse Ox 92 L 11/18/20 08:00 Intake & Output 11/17/20 11/18/20 11/18/20 18:59 06:59 18:59 Intake Total 360 250 Output Total 100 700 Balance 260 -450 Weight 116 kg Intake: IV 250 Oral 360 Output: Urine 100 700 Other: Voiding Method External Catheter External Catheter External Catheter # Bowel Movements 1 - Exam GENERAL: The patient is alert and oriented x3, not in any acute distress. Well developed, well nourished. HEENT: Pupils are round and equally reacting to light. EOMI. No scleral icterus. No conjunctival pallor. Normocephalic, atraumatic. No pharyngeal erythema. No thyromegaly. CARDIOVASCULAR: S1 and S2 present. No murmurs, rubs, or gallops. -PULMONARY: Chest is clear to auscultation, no wheezing. Mild bilateral basal crepitation ABDOMEN: Soft, nontender, nondistended, normoactive bowel sounds. No palpable organomegaly. MUSCULOSKELETAL: No joint swelling or deformity. -EXTREMITIES: No cyanosis, clubbing,. Mild bilateral pitting leg edema NEUROLOGICAL: Gross neurological examination did not reveal any focal deficits. SKIN: No rashes. no petechiae. - Labs CBC & Chem 7: 11/14/20 09:13 11/18/20 06:50 Labs: Abnormal Lab Results - Last 24 Hours (Table) 11/17/20 11/17/20 11/18/20 Range/Units 16:24 20:15 06:38 Chloride (98-107) mmol/L Carbon Dioxide (22-30) mmol/L BUN (7-17) mg/dL Glucose (74-99) mg/dL POC Glucose (mg/dL) 193 H 140 H 138 H (75-99) mg/dL 11/18/20 11/18/20 Range/Units 06:50 12:23 Chloride 93 L (98-107) mmol/L Carbon Dioxide 38 H (22-30) mmol/L BUN 27 H (7-17) mg/dL Glucose 147 H (74-99) mg/dL POC Glucose (mg/dL) 160 H (75-99) mg/dL Assessment and Plan Assessment: New onset acute systolic CHF Elevated troponin, rule out and STEMI. 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 With hyperglycemia Hyperlipidemia Morbid obesity with BMI 53 Plan: This is a pleasant 85 years old female who presents with acute CHF with ejection fraction less than 20%. Continue with diuretics. Continuous cardiology consult recommendation. Continue with aspirin. And brillinta Continue with ICU monitoring. Labs and medication were reviewed.. Continue same treatment. Continue with symptomatic treatment. Resume home medication. Monitor lytes and vitals. DVT and GI prophylaxis. Further recommendations as per clinical course of the patient DVT prophylaxis: Subcutaneous heparin GI Prophylaxis: Pepcid PT/OT: Pending Prognosis is guarded
[2020-11-18 13:30] LABS: Glucose,Whole Blood 148 mg/dL (75-99)
[2020-11-18] MEDS: INSULIN DETEMIR (LEVEMIR) 100 UNIT/ML SYR SQ SCH (14:14)
[2020-11-18 16:38] LABS: Glucose,Whole Blood 127 mg/dL (75-99)
[2020-11-18 22:16] LABS: Glucose,Whole Blood 124 mg/dL (75-99)
[2020-11-18] MEDS: ATORVASTATIN 20 MG TAB PO SCH (22:49)
[2020-11-18] MEDS: TICAGRELOR 90 MG TAB PO SCH (22:49)
[2020-11-19] MEDS: ZOLPIDEM 5 MG TAB PO PRN ×2 (01:27→22:47)
[2020-11-19 05:54] LABS: Anisocytosis Slight; HCT 33.4 % (34.0-46.0); HGB 10.5 gm/dL (11.4-16.0); Hypochromasia Marked; MCH 26.5 pg (25.0-35.0); MCHC 31.4 g/dL (31.0-37.0); MCV 84.6 fL (80.0-100.0); Mean Platelet Volume 7.8; Platelet Count 261 k/uL (150-450); RBC 3.95 m/uL (3.80-5.40); RDW 17.6 % (11.5-15.5); WBC 7.4 k/uL (3.8-10.6)
[2020-11-19 06:01] LABS: African American GFR (CKD) >90 (>60 ml/min/1.73 sqM); Anion Gap 11 mmol/L; Blood Urea Nitrogen 22 mg/dL (7-17); Calcium 8.9 mg/dL (8.4-10.2); Carbon Dioxide 33 mmol/L (22-30); Chloride 91 mmol/L (98-107); Glucose 133 mg/dL (74-99); Non-African American GFR(CKD) 85 (>60 ml/min/1.73 sqM); Potassium 3.6 mmol/L (3.5-5.1); Sodium 135 mmol/L (137-145)
[2020-11-19 07:09] LABS: Glucose,Whole Blood 153 mg/dL (75-99)
[2020-11-19] MEDS: INSULIN DETEMIR (LEVEMIR) 100 UNIT/ML SYR SQ SCH (07:53)
[2020-11-19] MEDS: INSULIN ASPART (NovoLOG) 100 UNIT/ML VIAL SQ SCH ×7 (07:53→20:02)
[2020-11-19] MEDS: SPIRONOLACTONE 25 MG TAB PO SCH (09:35)
[2020-11-19] MEDS: ASPIRIN 81 MG PO SCH (09:35)
[2020-11-19] MEDS: METOPROLOL TARTRATE 25 MG TAB PO SCH ×2 (09:35→20:01)
[2020-11-19] MEDS: ENOXAPARIN 40 MG/0.4 ML SYRINGE SQ SCH (09:35)
[2020-11-19] MEDS: FAMOTIDINE 20 MG TAB PO SCH (09:36)
[2020-11-19] MEDS: FUROSEMIDE 40 MG TAB PO SCH ×2 (09:36→17:09)
[2020-11-19] MEDS: TICAGRELOR 90 MG TAB PO SCH ×2 (09:36→20:01)
--- NOTE | 2020-11-19 10:53 | P.PN ---
Subjective This is a pleasant 85 years old female with past medical history of diabetes mellitus, hyperlipidemia. She does not follow up with PCP who presents because of weakness and dyspnea, she fell from bed yesterday morning. She is a patient of Dr. Isha chavez Patient says that she slipped off her bed when trying to get up without losing consciousness or dizziness, she could not lift herself and she has to wait for her sister to call EMS. She complains from exertional dyspnea but She denies chest pain or coughing. Patient noticed to have some dyspnea while talking No diarrhea or abdominal pain or vomiting. She does not complain from urinary symptoms like no dysuria or change in frequency. She denies smoking, alcohol or illicit tracts She was saturating 87% on room air Unremarkable CBC except for mild anemia at 10.6 hemoglobin, INR is 1.1. Unremarkable basic metabolic panel and liver enzymes. The glucose is elevated at 274 Urine analysis is no suspicious of infection but that shows 3+ glucose. Qui v is not detected. His troponin is elevated 0.063, proBNP is elevated at 4420 She was already started on Lasix 40 mg every 8 hours and aspirin 325 mg daily EKG showing normal sinus rhythm at [address]-T changes. Chest x-ray: CHF, pneumonia cannot be excluded 11/15/2020 Patient breathing is improving gradually. I discussed the case with cartilage team today and the plan for cardiac cath on Wednesday Other than that her creatinine slightly up to 0.9 today which is still within the reference range. Vitals and labs are reviewed Lasix was switched to 40 mg by mouth twice daily by cardiology team as well. 11/16/2020 Patient is doing well clinically with no chest pain or dyspnea but she stent in bed most of the time. She remains on oral Eliquis 40 mg twice daily. Hemoglobin A1c is elevated 11.3 and she was placed on Levemir 3 units at bedtime and 5 units with meals. Her glucose is 140-240 units going to increase insulin with meals to 5 units, BMP and magnesium were stable. Ohcalcitonin is trending down. Patient is planned for cardiac cath on Wednesday11/17/2020 Patient resting comfortably in bed, no specific complaint. Vitals and labs are stable, sugar controlled, continue with same medication of nitish Zhang and Lasix Patient is scheduled for cardiac cath tomorrow with Dr. Montes 11/18/2020 Patient is going for stress test today Family at bedside and their questions were answered. Patient underwent left heart catheterization and possible PCI, it looks like after the procedure patient went to the ICU, Final report of the cardiac cath is pending Vitals are stable this morning, blood pressure 116/63, heart rate 77, breathing rate 20 and she is saturating 92% on 2 L. And she is afebrile.. BMP is unremarkable. It looks like patient was started on brillinta . Patient is also on aspirin Patient has some risk from this procedure but benefits more than risks 11/19/2020 Patient is status post cardiac cath yesterday with report showing critical disease involving very high risk for thrombotic lesion involving the ostial left anterior descending artery, status post successful stenting and with the objective use of impella, however currently patient is with no impella, CBC and BMP are unremarkable and vitals are stable except for tachypnea with rhythm at 1.17-29. She is saturating 98% on 4 L oxygen via nasal cannula Patient currently remains on oral Lasix 40 mg twice daily, aspirin and brillinta. Also she is on metoprolol 25 mg. Sugar is controlled Review of systems CONSTITUTIONAL: No fever, no malaise, no fatigue. HEENT: No recent visual problems or hearing problems. Denied any sore throat. CARDIOVASCULAR: No orthopnea, PND, no palpitations, no syncope. PULMONARY: No shortness of breath, no cough, no hemoptysis. GASTROINTESTINAL: No diarrhea, no nausea, no vomiting, no abdominal pain. Normoactive bowel sounds. NEUROLOGICAL: No headaches, no weakness, no numbness. Active Medications Generic Name Dose Route Start Last Admin Trade Name Freq PRN Reason Stop Dose Admin Al Hydroxide/Mg Hydroxide 30 ml 11/18/20 11:53 Mag Hydrox/Al Hydrox/Simeth 30 Ml Cup PO Q4HR PRN Heartburn Alprazolam 0.25 mg 11/17/20 16:02 11/18/20 22:50 Alprazolam 0.25 Mg Tab PO 0.25 mg Q6HR PRN Administration Mild Anxiety Alprazolam 0.5 mg 11/17/20 16:02 11/18/20 14:23 Alprazolam 0.5 Mg Tab PO 0.5 mg Q6HR PRN Administration Moderate Anxiety Aspirin 81 mg 11/14/20 09:00 11/19/20 09:35 Aspirin 81 Mg PO 81 mg DAILY FELICIA Administration Atorvastatin Calcium 20 mg 11/13/20 21:00 11/18/20 22:49 Atorvastatin 20 Mg Tab PO 20 mg HS FELICIA Administration Atropine Sulfate 0.5 mg 11/18/20 11:53 Atropine Sulfate 0.1 Mg/Ml 10ml Syringe IV ONCE PRN Symptomatic Bradycardia Enoxaparin Sodium 40 mg 11/14/20 09:00 11/19/20 09:35 Enoxaparin 40 Mg/0.4 Ml Syringe SQ 40 mg DAILY FELICIA Administration Famotidine 20 mg 11/15/20 09:00 11/19/20 09:36 Famotidine 20 Mg Tab PO 20 mg DAILY FELICIA Administration Furosemide 40 mg 11/15/20 16:00 11/19/20 09:36 Furosemide 40 Mg Tab PO 40 mg BID@0900,1600 FELICIA Administration Insulin Aspart 0 unit 11/13/20 21:00 11/19/20 07:53 Insulin Aspart (Novolog) 100 Unit/Ml Vial SQ 2 unit ACHS FELICIA Administration Protocol Insulin Aspart 5 unit 11/16/20 17:30 11/19/20 07:54 Insulin Aspart (Novolog) 100 Unit/Ml Vial SQ 5 unit AC-TID FELICIA Administration Insulin Detemir 5 unit 11/16/20 07:00 11/19/20 07:53 Insulin Detemir (Levemir) 100 Unit/Ml Syr SQ 5 unit DAILY@0700 FELICIA Administration Lisinopril 2.5 mg 11/14/20 09:00 11/19/20 09:35 Lisinopril 2.5 Mg Tab PO 2.5 mg DAILY FELICIA Administration Metoprolol Tartrate 25 mg 11/14/20 21:00 11/19/20 09:35 Metoprolol Tartrate 25 Mg Tab PO 25 mg BID FELICIA Administration Miscellaneous Information 1 each 11/14/20 18:53 Magnesium Replacement Protocol 1 Each [facility] [place] DAILY PRN Per Protocol Protocol Miscellaneous Information 1 each 11/18/20 11:53 Rx Info: Iv Contrast Was Given 1 Each [facility] [place] 11/20/20 11:53 DAILY PRN Per Protocol Nitroglycerin 0.4 mg 11/17/20 16:02 Nitroglycerin Sl Tabs 0.4 Mg Tab SUBLINGUAL Q5M PRN Chest Pain Quetiapine Fumarate 25 mg 11/19/20 21:00 Quetiapine 25 Mg Tab PO HS FELICIA Spironolactone 25 mg 11/15/20 10:30 11/19/20 09:35 Spironolactone 25 Mg Tab PO 25 mg DAILY FELICIA Administration Ticagrelor 90 mg 11/18/20 21:00 11/19/20 09:36 Ticagrelor 90 Mg Tab PO 90 mg BID FELICIA Administration Zolpidem Tartrate 5 mg 11/18/20 11:53 11/19/20 01:27 Zolpidem 5 Mg Tab PO 5 mg HS PRN Administration Insomnia Objective - Vital Signs Vital signs: Vital Signs Temp 98.0 F 11/19/20 08:00 Pulse 78 11/19/20 09:30 Resp 29 H 11/19/20 09:30 BP 129/58 11/19/20 09:30 Pulse Ox 98 11/19/20 09:30 Intake & Output 11/18/20 11/19/20 11/19/20 18:59 06:59 18:59 Intake Total 700 525 175 Output Total 2660 1705 430 Balance -1960 -1180 -255 Weight 110.7 kg Intake: IV 700 525 75 Sodium Chloride 0.9% 1, 450 525 75 000 ml @ 75 mls/hr IV . [id number] [facility] Rx#:[id number] Oral 100 Output: Urine 2660 1705 430 Other: Voiding Method Indwelling Catheter Indwelling Catheter ABP, PAP, CO, CI - Last Documented Arterial Blood Pressure 121/47 - Exam GENERAL: The patient is alert and oriented x3, not in any acute distress. Well developed, well nourished. HEENT: Pupils are round and equally reacting to light. EOMI. No scleral icterus. No conjunctival pallor. Normocephalic, atraumatic. No pharyngeal erythema. No thyromegaly. CARDIOVASCULAR: S1 and S2 present. No murmurs, rubs, or gallops. -PULMONARY: Chest is clear to auscultation, no wheezing. Mild bilateral basal crepitation ABDOMEN: Soft, nontender, nondistended, normoactive bowel sounds. No palpable organomegaly. MUSCULOSKELETAL: No joint swelling or deformity. -EXTREMITIES: No cyanosis, clubbing,. Mild bilateral pitting leg edema NEUROLOGICAL: Gross neurological examination did not reveal any focal deficits. SKIN: No rashes. no petechiae. - Labs CBC & Chem 7: 11/19/20 03:54 11/19/20 03:54 Labs: Abnormal Lab Results - Last 24 Hours (Table) 11/18/20 11/18/20 11/18/20 Range/Units 12:23 13:29 16:37 Hgb (11.4-16.0) gm/dL Hct (34.0-46.0) % RDW (11.5-15.5) % APTT (22.0-30.0) sec Sodium (137-145) mmol/L Chloride (98-107) mmol/L Carbon Dioxide (22-30) mmol/L BUN (7-17) mg/dL Glucose (74-99) mg/dL POC Glucose (mg/dL) 160 H 148 H 127 H (75-99) mg/dL 11/18/20 11/19/20 11/19/20 Range/Units 22:15 03:54 03:54 Hgb 10.5 L (11.4-16.0) gm/dL Hct 33.4 L (34.0-46.0) % RDW 17.6 H (11.5-15.5) % APTT (22.0-30.0) sec Sodium 135 L (137-145) mmol/L Chloride 91 L (98-107) mmol/L Carbon Dioxide 33 H (22-30) mmol/L BUN 22 H (7-17) mg/dL Glucose 133 H (74-99) mg/dL POC Glucose (mg/dL) 124 H (75-99) mg/dL 11/19/20 11/19/20 Range/Units 03:54 07:08 Hgb (11.4-16.0) gm/dL Hct (34.0-46.0) % RDW (11.5-15.5) % APTT 20.0 L (22.0-30.0) sec Sodium (137-145) mmol/L Chloride (98-107) mmol/L Carbon Dioxide (22-30) mmol/L BUN (7-17) mg/dL Glucose (74-99) mg/dL POC Glucose (mg/dL) 153 H (75-99) mg/dL Assessment and Plan Assessment: New onset acute systolic CHF Elevated troponin, rule out and STEMI. Mostly troponin leak from myocardial injury as per roll coverer Acute hypoxic respiratory failure secondary to above Mechanical fall without loss of consciousness Diabetes mellitus, type II. With hyperglycemia Hyperlipidemia Morbid obesity with BMI 53 Plan: This is a pleasant 85 years old female who presents with acute CHF with ejection fraction less than 20%. Continue with diuretics. Continuous cardiology consult recommendation. Continue with aspirin. And brillinta Continue with ICU monitoring. Labs and medication were reviewed.. Continue same treatment. Continue with symptomatic treatment. Resume home medication. Monitor lytes and vitals. DVT and GI prophylaxis. Further recommendations as per clinical course of the patient DVT prophylaxis: Subcutaneous heparin GI Prophylaxis: Pepcid PT/OT: Pending Prognosis is guarded
--- NOTE | 2020-11-19 11:25 | P.PN ---
Subjective Progress Note Date: 11/19/20 HISTORY OF PRESENT ILLNESS: 11/13/2020 This is a 85-year-old female with a past medical history significant for diabetes mellitus, hyperlipidemia, and former nicotine dependence. 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 We have been asked to see the patient in consultation for pulmonary edema. Patient examined at the bedside in the emergency room. Patient is currently alert and oriented 1. Patient is unable to give much history. Patient thinks that she is at home at the time of examination. When patient was reoriented and told why she was in the hospital she was unable to tell me why she came to the hospital or who brought her here. Patient currently denies chest pain or pressure. She denies shortness of breath. She denies dizziness or lightheadedness. Patient was found to be in pulmonary edema and was started on IV Lasix. Preliminary echocardiogram complet ed in the emergency room reveals ejection fraction 20-25% and moderate aortic stenosis. EKG reveals sinus mechanism with nonspecific changes. First degree AV block. Left axis deviation. Chest xray cardiomegaly with pulmonary venous congestion and scattered infiltrates. Findings may reflect early congestive heart failure although infiltrates and other etiologies are not excluded. Laboratory data: WBC 3.9. Hemoglobin 10.6. Platelet count 337. Sodium 137. Potassium 4.1. BUN 15. Creatinine 0.66. BNP 4420. Troponin 0.063. 0.061. Current home cardiac medications include simvastatin 40 mg daily 11/14/2020 Patient examined this morning at the bedside. Patient is less confused today. Patient denies chest pain or pressure. She denies shortness of breath. Echocardiogram completed revealed ejection fraction 20-25%, global hypokinesis with only inferior lateral wall moving, apex is akinetic, moderate aortic stenosis, mild mitral regurgitation, mild tricuspid regurgitation, and moderate pulmonary hypertension 11/15/2020 Patient examined this morning at the bedside. Patient denies chest pain or pressure. Denies shortness of breath. Remains on lasix 40mg PO Q8 hours. BUN 21. Creatinine 0.92. Chest x-ray yesterday reveals residual volume overload. 11/16/2020 Patient examined this morning at the bedside. Patient denies chest pain or pressure. She denies shortness of breath at rest. She states she has not been out of bed today. She also states she did not get out of bed yesterday. She remains on oral Lasix 40 mg twice a day. blood pressure 106/61. Heart rate in the 80s. potassium 3.9. Magnesium 2.0. BUN 26. Creatinine 0.73. 11/17/2020 Patient examined this morning the bedside. Patient denies chest pain or pressure. She denies shortness of breath. Patient has not been getting out of bed and ambulating a lot. Her vital signs are stable. 11/19/2020 Patient examined this morning at the bedside. She is in the ICU. She underwent cardiac cath yesterday with Dr. Montes revealing critical disease involving very high risk for thrombotic lesion involving the ostial left anterior descending artery, right from the takeoff from the left main. Mild disease involving the left circumflex coronary artery. Nondominant right coronary artery. Successful stenting of the ostial and proximal LAD with adjunctive use of impella. Patient was confused overnight. She required use of restraints overnight. She was also given Ambien. Patient remains confused this morning. She is somewhat lethargic. She was receiving IV fluids overnight which has been discontinued this morning. PHYSICAL EXAM: VITAL SIGNS: Reviewed. GENERAL: Well-developed in no acute distress. HEENT: Head is normocephalic. Pupils are equal, round. Sclerae anicteric. Mucous membranes of the mouth are moist. Neck supple. No JVD or thyromegaly LUNGS: Respirations even and unlabored. Lungs diminished bilaterally. HEART: Regular rate and rhythm. S1 and S2 heard. Soft systolic murmur noted. EXTREMITIES: Normal range of motion. No clubbing or cyanosis. Peripheral pulses intact. Trace bilateral lower extremity edema ASSESSMENT: Acute systolic heart failure, EF 20-25%, BNP 4420 Ischemic cardiomyopathy, status post cardiac catheterization with PCI to ostial and proximal LAD Moderate aortic stenosis Abnormal troponins, not indicative of myocardial injury Diabetes mellitus Hypertension Former nicotine dependence Morbid obesity, BMI 52.9 PLAN: Continue oral lasix and Aldactone Daily weights Accurate I&O Monitor kidney function Continue simvastatin, aspirin, brilinta, lisinopril, and metoprolol Patient may be transferred to Further recommendations pending patient's course Nurse practitioner note has been reviewed by physician. Signing provider agrees with the documented findings, assessment, and plan of care. Objective - Vital Signs Vital signs: Vital Signs Temp 98.0 F 11/19/20 08:00 Pulse 78 03/30/21 09:30 Resp 29 H 11/19/20 09:30 BP 129/58 11/19/20 09:30 Pulse Ox 98 11/19/20 09:30 Intake & Output 11/18/20 11/19/20 11/19/20 18:59 06:59 18:59 Intake Total 700 525 175 Output Total 2660 1705 430 Balance -1960 -1180 -255 Weight 110.7 kg Intake: IV 700 525 75 Sodium Chloride 0.9% 1, 450 525 75 000 ml @ 75 mls/hr IV . [id number] [facility] Rx#:[id number] Oral 100 Output: Urine 2660 1705 430 Other: Voiding Method Indwelling Catheter Indwelling Catheter ABP, PAP, CO, CI - Last Documented Arterial Blood Pressure 121/47 - Labs CBC & Chem 7: 11/19/20 03:54 11/19/20 03:54 Labs: Abnormal Lab Results - Last 24 Hours (Table) 11/18/20 11/18/20 11/18/20 Range/Units 12:23 13:29 16:37 Hgb (11.4-16.0) gm/dL Hct (34.0-46.0) % RDW (11.5-15.5) % APTT (22.0-30.0) sec Sodium (137-145) mmol/L Chloride (98-107) mmol/L Carbon Dioxide (22-30) mmol/L BUN (7-17) mg/dL Glucose (74-99) mg/dL POC Glucose (mg/dL) 160 H 148 H 127 H (75-99) mg/dL 11/18/20 11/19/20 11/19/20 Range/Units 22:15 03:54 03:54 Hgb 10.5 L (11.4-16.0) gm/dL Hct 33.4 L (34.0-46.0) % RDW 17.6 H (11.5-15.5) % APTT (22.0-30.0) sec Sodium 135 L (137-145) mmol/L Chloride 91 L (98-107) mmol/L Carbon Dioxide 33 H (22-30) mmol/L BUN 22 H (7-17) mg/dL Glucose 133 H (74-99) mg/dL POC Glucose (mg/dL) 124 H (75-99) mg/dL 11/19/20 11/19/20 Range/Units 03:54 07:08 Hgb (11.4-16.0) gm/dL Hct (34.0-46.0) % RDW (11.5-15.5) % APTT 20.0 L (22.0-30.0) sec Sodium (137-145) mmol/L Chloride (98-107) mmol/L Carbon Dioxide (22-30) mmol/L BUN (7-17) mg/dL Glucose (74-99) mg/dL POC Glucose (mg/dL) 153 H (75-99) mg/dL
[2020-11-19] MEDS: ALPRAZolam 0.5 MG TAB PO PRN ×2 (12:32→20:01)
[2020-11-19 12:34] LABS: Glucose,Whole Blood 115 mg/dL (75-99)
[2020-11-19 17:12] LABS: Glucose,Whole Blood 222 mg/dL (75-99)
[2020-11-19 19:49] LABS: Glucose,Whole Blood 205 mg/dL (75-99)
[2020-11-19] MEDS: ATORVASTATIN 20 MG TAB PO SCH (20:01)
[2020-11-19] MEDS ORDERED: QUEtiapine 25 MG TAB PO SCH (21:00)
[2020-11-20] MEDS: ALPRAZolam 0.5 MG TAB PO PRN (04:14)
[2020-11-20 06:30] LABS: Glucose,Whole Blood 160 mg/dL (75-99)
[2020-11-20] MEDS: INSULIN DETEMIR (LEVEMIR) 100 UNIT/ML SYR SQ SCH (07:05)
[2020-11-20] MEDS: INSULIN ASPART (NovoLOG) 100 UNIT/ML VIAL SQ SCH ×7 (07:05→21:12)
[2020-11-20 08:07] LABS: African American GFR (CKD) >90 (>60 ml/min/1.73 sqM); Blood Urea Nitrogen 19 mg/dL (7-17); Calcium 8.8 mg/dL (8.4-10.2); Chloride 88 mmol/L (98-107); Glucose 147 mg/dL (74-99); Non-African American GFR(CKD) 79 (>60 ml/min/1.73 sqM); Potassium 3.2 mmol/L (3.5-5.1); Sodium 135 mmol/L (137-145)
[2020-11-20 08:14] LABS: Anion Gap 8 mmol/L; Carbon Dioxide 39 mmol/L (22-30)
[2020-11-20] MEDS: ENOXAPARIN 40 MG/0.4 ML SYRINGE SQ SCH (09:06)
[2020-11-20] MEDS ORDERED: Potassium Replacement Protocol 1 EACH MISC MISCELLANE PRN (11:21)
--- NOTE | 2020-11-20 11:21 | P.PN ---
Subjective Progress Note Date: 11/20/20 HISTORY OF PRESENT ILLNESS: 11/13/2020 This is a 85-year-old female with a past medical history significant for diabetes mellitus, hyperlipidemia, and former nicotine dependence. 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 We have been asked to see the patient in consultation for pulmonary edema. Patient examined at the bedside in the emergency room. Patient is currently alert and oriented 1. Patient is unable to give much history. Patient thinks that she is at home at the time of examination. When patient was reoriented and told why she was in the hospital she was unable to tell me why she came to the hospital or who brought her here. Patient currently denies chest pain or pressure. She denies shortness of breath. She denies dizziness or lightheadedness. Patient was found to be in pulmonary edema and was started on IV Lasix. Preliminary echocardiogram complet ed in the emergency room reveals ejection fraction 20-25% and moderate aortic stenosis. EKG reveals sinus mechanism with nonspecific changes. First degree AV block. Left axis deviation. Chest xray cardiomegaly with pulmonary venous congestion and scattered infiltrates. Findings may reflect early congestive heart failure although infiltrates and other etiologies are not excluded. Laboratory data: WBC 3.9. Hemoglobin 10.6. Platelet count 337. Sodium 137. Potassium 4.1. BUN 15. Creatinine 0.66. BNP 4420. Troponin 0.063. 0.061. Current home cardiac medications include simvastatin 40 mg daily 11/14/2020 Patient examined this morning at the bedside. Patient is less confused today. Patient denies chest pain or pressure. She denies shortness of breath. Echocardiogram completed revealed ejection fraction 20-25%, global hypokinesis with only inferior lateral wall moving, apex is akinetic, moderate aortic stenosis, mild mitral regurgitation, mild tricuspid regurgitation, and moderate pulmonary hypertension 11/15/2020 Patient examined this morning at the bedside. Patient denies chest pain or pressure. Denies shortness of breath. Remains on lasix 40mg PO Q8 hours. BUN 21. Creatinine 0.92. Chest x-ray yesterday reveals residual volume overload. 11/16/2020 Patient examined this morning at the bedside. Patient denies chest pain or pressure. She denies shortness of breath at rest. She states she has not been out of bed today. She also states she did not get out of bed yesterday. She remains on oral Lasix 40 mg twice a day. blood pressure 106/61. Heart rate in the 80s. potassium 3.9. Magnesium 2.0. BUN 26. Creatinine 0.73. 11/17/2020 Patient examined this morning the bedside. Patient denies chest pain or pressure. She denies shortness of breath. Patient has not been getting out of bed and ambulating a lot. Her vital signs are stable. 11/19/2020 Patient examined this morning at the bedside. She is in the ICU. She underwent cardiac cath yesterday with Dr. Montes revealing critical disease involving very high risk for thrombotic lesion involving the ostial left anterior descending artery, right from the takeoff from the left main. Mild disease involving the left circumflex coronary artery. Nondominant right coronary artery. Successful stenting of the ostial and proximal LAD with adjunctive use of impella. Patient was confused overnight. She required use of restraints overnight. She was also given Ambien. Patient remains confused this morning. She is somewhat lethargic. She was receiving IV fluids overnight which has been discontinued this morning. 11/20/2020 Patient has been transferred out of the ICU to . Patient was confused overnight and pulled over her IV. She denies chest pain or pressure. She denies shortness of breath. blood pressure 141/65. Heart rate in the 60s. She is on 4 L nasal cannula with oxygen saturations greater than 92%. Potassium 3.2. PHYSICAL EXAM: VITAL SIGNS: Reviewed. GENERAL: Well-developed in no acute distress. HEENT: Head is normocephalic. Pupils are equal, round. Sclerae anicteric. Mucous membranes of the mouth are moist. Neck supple. No JVD or thyromegaly LUNGS: Respirations even and unlabored. Lungs diminished bilaterally. HEART: Regular rate and rhythm. S1 and S2 heard. Soft systolic murmur noted. EXTREMITIES: Normal range of motion. No clubbing or cyanosis. Peripheral pulses intact. Trace bilateral lower extremity edema ASSESSMENT: Acute systolic heart failure, EF 20-25%, BNP 4420 Ischemic cardiomyopathy, status post cardiac catheterization with PCI to ostial and proximal LAD Moderate aortic stenosis Abnormal troponins, not indicative of myocardial injury Diabetes mellitus Hypertension Former nicotine dependence Morbid obesity, BMI 52.9 PLAN: Continue simvastatin, aspirin, brilinta, lisinopril, and metoprolol Continue oral lasix and Aldactone Daily weights Accurate I&O Monitor kidney function Patient to receive midline IV today Replace potassium Further recommendations pending patient's course Nurse practitioner note has been reviewed by physician. Signing provider agrees with the documented findings, assessment, and plan of care. Objective - Vital Signs Vital signs: Vital Signs Temp 99.2 F 11/20/20 08:00 Pulse 76 11/20/20 08:00 Resp 20 11/20/20 08:00 BP 142/64 11/20/20 08:00 Pulse Ox 97 11/20/20 08:00 Intake & Output 11/19/20 11/20/20 11/20/20 18:59 06:59 18:59 Intake Total 275 100 Output Total 1410 1600 Balance -1135 -1500 Weight 114 kg Intake: IV 75 Sodium Chloride 0.9% 1, 75 000 ml @ 75 mls/hr IV . [id number] [facility] Rx#:[id number] Oral 200 100 Output: Urine 1410 1600 Other: Voiding Method Indwelling Catheter Indwelling Catheter Indwelling Catheter ABP, PAP, CO, CI - Last Documented Arterial Blood Pressure 121/47 - Labs CBC & Chem 7: 11/19/20 03:54 11/20/20 06:43 Labs: Abnormal Lab Results - Last 24 Hours (Table) 11/19/20 11/19/20 11/19/20 Range/Units 12:33 17:11 19:47 Sodium (137-145) mmol/L Potassium (3.5-5.1) mmol/L Chloride (98-107) mmol/L Carbon Dioxide (22-30) mmol/L BUN (7-17) mg/dL Glucose (74-99) mg/dL POC Glucose (mg/dL) 115 H 222 H 205 H (75-99) mg/dL 11/20/20 11/20/20 Range/Units 06:27 06:43 Sodium 135 L (137-145) mmol/L Potassium 3.2 L (3.5-5.1) mmol/L Chloride 88 L (98-107) mmol/L Carbon Dioxide 39 H (22-30) mmol/L BUN 19 H (7-17) mg/dL Glucose 147 H (74-99) mg/dL POC Glucose (mg/dL) 160 H (75-99) mg/dL
[2020-11-20] MEDS: POTASSIUM CHLORIDE 10 MEQ in WATER FOR INJECTION 1 100ML.BAG IVPB SCH ×4 (11:57→18:34)
[2020-11-20] MEDS ORDERED: POTASSIUM CHLORIDE ER 20 MEQ TAB.ER PO SCH (12:00)
[2020-11-20] MEDS: FAMOTIDINE 20 MG TAB PO SCH (12:05)
[2020-11-20] MEDS: ASPIRIN 81 MG PO SCH (12:05)
[2020-11-20] MEDS: SPIRONOLACTONE 25 MG TAB PO SCH (12:05)
[2020-11-20] MEDS: METOPROLOL TARTRATE 25 MG TAB PO SCH ×2 (12:05→21:12)
[2020-11-20] MEDS: FUROSEMIDE 40 MG TAB PO SCH ×2 (12:06→16:26)
[2020-11-20] MEDS: TICAGRELOR 90 MG TAB PO SCH ×2 (12:06→21:12)
--- NOTE | 2020-11-20 12:07 | CT ---
The EXAMINATION TYPE: CT brain wo con DATE OF EXAM: 11/20/2020 COMPARISON: None HISTORY: altered mental status CT DLP: 1098.[address] of the brain was performed. The ventricles, basal cisterns and sulci overlying the cerebral convexities demonstrate mild enlargem ent. There is no evidence for intracranial hemorrhage or sulcal effacement. There is decreased attenuation about the periventricular white matter and deep white matter of both c erebral hemispheres, compatible with chronic small vessel ischemia. Differential diagnosis does inclu de demyelination. No mass effects are seen.No midline shift. Osseous calvarium is intact. If symptoms persist consider MRI. IMPRESSION: 1. Age related atrophic and chronic small vessel ischemic change without acute intracranial process s een at this time.
[2020-11-20 12:18] LABS: Glucose,Whole Blood 172 mg/dL (75-99)
[2020-11-20] MEDS ORDERED: POTASSIUM CHLORIDE ER 20 MEQ TAB.ER PO STA (12:41)
[2020-11-20] MEDS: QUEtiapine 50 MG TAB PO PRN (13:57)
[2020-11-20 16:44] LABS: Glucose,Whole Blood 192 mg/dL (75-99)
[2020-11-20 20:32] LABS: Glucose,Whole Blood 188 mg/dL (75-99)
[2020-11-20] MEDS: ATORVASTATIN 20 MG TAB PO SCH (21:12)
--- NOTE | 2020-11-20 21:33 | P.PN ---
Subjective This is a pleasant 85 years old female with past medical history of diabetes mellitus, hyperlipidemia. She does not follow up with PCP who presents because of weakness and dyspnea, she fell from bed yesterday morning. She is a patient of Dr. Isha chavez Patient says that she slipped off her bed when trying to get up without losing consciousness or dizziness, she could not lift herself and she has to wait for her sister to call EMS. She complains from exertional dyspnea but She denies chest pain or coughing. Patient noticed to have some dyspnea while talking No diarrhea or abdominal pain or vomiting. She does not complain from urinary symptoms like no dysuria or change in frequency. She denies smoking, alcohol or illicit tracts She was saturating 87% on room air Unremarkable CBC except for mild anemia at 10.6 hemoglobin, INR is 1.1. Unremarkable basic metabolic panel and liver enzymes. The glucose is elevated at 274 Urine analysis is no suspicious of infection but that shows 3+ glucose. Qiu v is not detected. His troponin is elevated 0.063, proBNP is elevated at 4420 She was already started on Lasix 40 mg every 8 hours and aspirin 325 mg daily EKG showing normal sinus rhythm at [address]-T changes. Chest x-ray: CHF, pneumonia cannot be excluded 11/15/2020 Patient breathing is improving gradually. I discussed the case with cartilage team today and the plan for cardiac cath on Wednesday Other than that her creatinine slightly up to 0.9 today which is still within the reference range. Vitals and labs are reviewed Lasix was switched to 40 mg by mouth twice daily by cardiology team as well. 11/16/2020 Patient is doing well clinically with no chest pain or dyspnea but she stent in bed most of the time. She remains on oral Eliquis 40 mg twice daily. Hemoglobin A1c is elevated 11.3 and she was placed on Levemir 3 units at bedtime and 5 units with meals. Her glucose is 140-240 units going to increase insulin with meals to 5 units, BMP and magnesium were stable. Ohcalcitonin is trending down. Patient is planned for cardiac cath on Wednesday11/17/2020 Patient resting comfortably in bed, no specific complaint. Vitals and labs are stable, sugar controlled, continue with same medication of nitish Zhang and Lasix Patient is scheduled for cardiac cath tomorrow with Dr. Montes 11/18/2020 Patient is going for stress test today Family at bedside and their questions were answered. Patient underwent left heart catheterization and possible PCI, it looks like after the procedure patient went to the ICU, Final report of the cardiac cath is pending Vitals are stable this morning, blood pressure 116/63, heart rate 77, breathing rate 20 and she is saturating 92% on 2 L. And she is afebrile.. BMP is unremarkable. It looks like patient was started on brillinta . Patient is also on aspirin Patient has some risk from this procedure but benefits more than risks 11/19/2020 Patient is status post cardiac cath yesterday with report showing critical disease involving very high risk for thrombotic lesion involving the ostial left anterior descending artery, status post successful stenting and with the objective use of impella, however currently patient is with no impella, CBC and BMP are unremarkable and vitals are stable except for tachypnea with rhythm at 1.17-29. She is saturating 98% on 4 L oxygen via nasal cannula Patient currently remains on oral Lasix 40 mg twice daily, aspirin and brillinta. Also she is on metoprolol 25 mg. Sugar is controlled 11/20/2020 Patient was transferred to select unit , Patient last night was agitated and she was given Xanax and placed on restraints for some time, she reprepped her IV line and midline affect be placed today. In the morning she was drowsy but calm, she open eyes to verbal and tactile stimuli and answer a few questions. She denies chest pain or headache or any other complaints. There is no fever and she is hemodynamically stable. CT of the brain was done which was unremarkable for acute event. Cardiology team following the patient and recommended to continue the same treatment and obtained a midline, however patient later on in the evening when I rechecked on the patient nurse told me that she dropped her midline again and she was agitated. We going to order chest x-ray, urinalysis and bladder scan. Order labs in the morning. Review of systems CONSTITUTIONAL: No fever, no malaise, no fatigue. HEENT: No recent visual problems or hearing problems. Denied any sore throat. CARDIOVASCULAR: No orthopnea, PND, no palpitations, no syncope. PULMONARY: No shortness of breath, no cough, no hemoptysis. GASTROINTESTINAL: No diarrhea, no nausea, no vomiting, no abdominal pain. Normoactive bowel sounds. NEUROLOGICAL: No headaches, no weakness, no numbness. Active Medications Generic Name Dose Route Start Last Admin Trade Name Freq PRN Reason Stop Dose Admin Al Hydroxide/Mg Hydroxide 30 ml 11/18/20 11:53 Mag Hydrox/Al Hydrox/Simeth 30 Ml Cup PO Q4HR PRN Heartburn Aspirin 81 mg 11/14/20 09:00 11/20/20 12:05 Aspirin 81 Mg PO 81 mg DAILY FELICIA Administration Atorvastatin Calcium 20 mg 11/13/20 21:00 11/20/20 21:12 Atorvastatin 20 Mg Tab PO 20 mg HS FELICIA Administration Atropine Sulfate 0.5 mg 11/18/20 11:53 Atropine Sulfate 0.1 Mg/Ml 10ml Syringe IV ONCE PRN Symptomatic Bradycardia Enoxaparin Sodium 40 mg 11/14/20 09:00 11/20/20 09:06 Enoxaparin 40 Mg/0.4 Ml Syringe SQ 40 mg DAILY FELICIA Administration Famotidine 20 mg 11/15/20 09:00 11/20/20 12:05 Famotidine 20 Mg Tab PO 20 mg DAILY FELICIA Administration Furosemide 40 mg 11/15/20 16:00 11/20/20 16:26 Furosemide 40 Mg Tab PO 40 mg BID@0900,1600 FELICIA Administration Insulin Aspart 0 unit 11/13/20 21:00 11/20/20 21:12 Insulin Aspart (Novolog) 100 Unit/Ml Vial SQ 3 unit ACHS FELICIA Administration Protocol Insulin Aspart 5 unit 11/16/20 17:30 11/20/20 17:15 Insulin Aspart (Novolog) 100 Unit/Ml Vial SQ Not Given [facility] Insulin Detemir 5 unit 11/16/20 07:00 11/20/20 07:05 Insulin Detemir (Levemir) 100 Unit/Ml Syr SQ 5 unit DAILY@0700 FELICIA Administration Lisinopril 2.5 mg 11/14/20 09:00 11/20/20 12:06 Lisinopril 2.5 Mg Tab PO 2.5 mg DAILY FELICIA Administration Metoprolol Tartrate 25 mg 11/14/20 21:00 11/20/20 21:12 Metoprolol Tartrate 25 Mg Tab PO 25 mg BID FELICIA Administration Miscellaneous Information 1 each 11/14/20 18:53 Magnesium Replacement Protocol 1 Each Misc MISCELLANE DAILY PRN Per Protocol Protocol Miscellaneous Information 1 each 11/20/20 11:21 Potassium Replacement Protocol 1 Each Misc MISCELLANE DAILY PRN Per Protocol Protocol Nitroglycerin 0.4 mg 11/17/20 16:02 Nitroglycerin Sl Tabs 0.4 Mg Tab SUBLINGUAL Q5M PRN Chest Pain Quetiapine Fumarate 50 mg 11/20/20 10:10 11/20/20 13:57 Quetiapine 50 Mg Tab PO 50 mg BID PRN Administration Agitation Spironolactone 25 mg 11/15/20 10:30 11/20/20 12:05 Spironolactone 25 Mg Tab PO 25 mg DAILY FELICIA Administration Ticagrelor 90 mg 11/18/20 21:00 11/20/20 21:12 Ticagrelor 90 Mg Tab PO 90 mg BID FELICIA Administration Zolpidem Tartrate 5 mg 11/18/20 11:53 11/19/20 22:47 Zolpidem 5 Mg Tab PO 5 mg HS PRN Administration Insomnia Objective - Vital Signs Vital signs: Vital Signs Temp 99.1 F 11/20/20 11:03 Pulse 69 11/20/20 11:03 Resp 18 11/20/20 13:09 BP 141/65 11/20/20 11:03 Pulse Ox 86 L 11/20/20 14:01 Intake & Output 11/19/20 11/20/20 11/20/20 18:59 06:59 18:59 Intake Total 275 100 400 Output Total 1410 1600 Balance -1135 -1500 400 Weight 114 kg Intake: IV 75 400 Potassium Chloride 10 meq 400 In Water For Injection 1 100ml.bag @ 100 mls/hr IVPB Q1HR FELICIA Rx#: [id number] Sodium Chloride 0.9% 1, 75 000 ml @ 75 mls/hr IV . [id number] FELICIA Rx#:[id number] Oral 200 100 Output: Urine 1410 1600 Other: Voiding Method Indwelling Catheter Indwelling Catheter Indwelling Catheter ABP, PAP, CO, CI - Last Documented Arterial Blood Pressure 121/47 - Exam -GENERAL: The patient is alert but drowsy, easily arousable, not in any acute distress. Obese HEENT: Pupils are round and equally reacting to light. EOMI. No scleral icterus. No conjunctival pallor. Normocephalic, atraumatic. No pharyngeal erythema. No thyromegaly. CARDIOVASCULAR: S1 and S2 present. No murmurs, rubs, or gallops. -PULMONARY: Chest is clear to auscultation, no wheezing. Mild bilateral basal crepitation ABDOMEN: Soft, nontender, nondistended, normoactive bowel sounds. No palpable organomegaly. MUSCULOSKELETAL: No joint swelling or deformity. -EXTREMITIES: No cyanosis, clubbing,. Mild bilateral pitting leg edema NEUROLOGICAL: Gross neurological examination did not reveal any focal deficits. SKIN: No rashes. no petechiae. - Labs CBC & Chem 7: 11/19/20 03:54 11/20/20 06:43 Labs: Abnormal Lab Results - Last 24 Hours (Table) 11/19/20 11/19/20 11/20/20 Range/Units 17:11 19:47 06:27 Sodium (137-145) mmol/L Potassium (3.5-5.1) mmol/L Chloride (98-107) mmol/L Carbon Dioxide (22-30) mmol/L BUN (7-17) mg/dL Glucose (74-99) mg/dL POC Glucose (mg/dL) 222 H 205 H 160 H (75-99) mg/dL 11/20/20 11/20/20 Range/Units 06:43 12:16 Sodium 135 L (137-145) mmol/L Potassium 3.2 L (3.5-5.1) mmol/L Chloride 88 L (98-107) mmol/L Carbon Dioxide 39 H (22-30) mmol/L BUN 19 H (7-17) mg/dL Glucose 147 H (74-99) mg/dL POC Glucose (mg/dL) 172 H (75-99) mg/dL Assessment and Plan Assessment: Confusion, possible metabolic encephalopathy New onset acute systolic CHF Elevated troponin, rule out and STEMI. Mostly troponin leak from myocardial injury as per sausage linker Acute hypoxic respiratory failure secondary to above Mechanical fall without loss of consciousness Diabetes mellitus, type II. With hyperglycemia Hyperlipidemia Morbid obesity with BMI 53 Plan: This is a pleasant 85 years old female who presents with acute CHF with ejection fraction less than 20%. Status post stent placement to the LAD. Continue with diuretics. Continuous cardiology consult recommendation. Continue with aspirin. And brillinta Continue workup as above Labs and medication were reviewed.. Continue same treatment. Continue with symptomatic treatment. Resume home medication. Monitor lytes and vitals. DVT and GI prophylaxis. Further recommendations as per clinical course of the p atient DVT prophylaxis: Subcutaneous heparin GI Prophylaxis: Pepcid PT/OT: Pending Prognosis is guarded
--- NOTE | 2020-11-20 22:09 | XR ---
EXAMINATION TYPE: XR chest 1V DATE OF EXAM: 11/20/2020 COMPARISON: 11/14/2020 HISTORY: Confusion TECHNIQUE: Single view FINDINGS: Heart is enlarged. There is no heart failure. There is mild blunting of the costophrenic an gles. There are chest leads. Thoracic aorta is atheromatous. IMPRESSION: Mild pleural effusions and left basilar pulmonary infiltrate is increased compared to old exam. No obvious heart failure.
[2020-11-20 22:15] LABS: Appearance,Urine Turbid (Clear); Bacteria,Urine Many /hpf; Bilirubin,Urine Negative (Negative); Blood,Urine Large (Negative); Color,Urine Yellow; Glucose,Urine (UA) Negative (Negative); Ketones,Urine Negative (Negative); Leukocyte Esterase,Urine Large (Negative); Mucus,Urine Few /hpf; Nitrite,Urine Negative (Negative); PH, Urine 7.5 (5.0-8.0); Protein,Urine Trace (Negative); RBC,Urine 122 /hpf (0-5); Specific Gravity,Urine 1.017 (1.001-1.035); Squamous Epithelial Cell,Urine 2 /hpf (0-4); WBC,Urine 142 /hpf (0-5)
[2020-11-21] MEDS: PIPERACILLIN-TAZOBACTAM 3.375 GM in SODIUM CHLORIDE 0.9% 100 ML IVPB SCH ×4 (00:16→22:10)
[2020-11-21] MEDS: QUEtiapine 50 MG TAB PO PRN (00:56)
[2020-11-21 06:23] LABS: Glucose,Whole Blood 198 mg/dL (75-99)
[2020-11-21] MEDS: INSULIN ASPART (NovoLOG) 100 UNIT/ML VIAL SQ SCH ×7 (06:40→21:43)
[2020-11-21] MEDS: INSULIN DETEMIR (LEVEMIR) 100 UNIT/ML SYR SQ SCH (06:40)
[2020-11-21] MEDS: ASPIRIN 81 MG PO SCH (09:25)
[2020-11-21] MEDS: ENOXAPARIN 40 MG/0.4 ML SYRINGE SQ SCH (09:26)
[2020-11-21] MEDS: FUROSEMIDE 40 MG TAB PO SCH ×2 (09:27→17:13)
[2020-11-21] MEDS: FAMOTIDINE 20 MG TAB PO SCH (09:27)
[2020-11-21] MEDS: SPIRONOLACTONE 25 MG TAB PO SCH (09:28)
[2020-11-21] MEDS: METOPROLOL TARTRATE 25 MG TAB PO SCH ×2 (09:28→21:43)
[2020-11-21] MEDS: TICAGRELOR 90 MG TAB PO SCH ×2 (09:30→21:43)
[2020-11-21] MEDS ORDERED: HYDROcodone/APAP 5-325MG 1 EACH TAB PO PRN (10:10)
[2020-11-21] MEDS ORDERED: guaiFENesin-DM 100-10MG/5ML 10 ML CUP PO PRN (10:12)
[2020-11-21 10:36] LABS: Anisocytosis Slight; Basophils % (A) 0 %; Eosinophils # (A) 0.1 k/uL (0-0.7); Eosinophils % (A) 3 %; HCT 29.7 % (34.0-46.0); HGB 9.3 gm/dL (11.4-16.0); Hypochromasia Moderate; Lymphocytes # (A) 0.5 k/uL (1.0-4.8); Lymphocytes % (A) 11 %; MCH 26.2 pg (25.0-35.0); MCHC 31.4 g/dL (31.0-37.0); MCV 83.5 fL (80.0-100.0); Mean Platelet Volume 7.4; Monocytes # (A) 0.4 k/uL (0-1.0); Monocytes % (A) 10 %; Neutrophils # (A) 3.1 k/uL (1.3-7.7); Neutrophils % (A) 74 %; Platelet Count 293 k/uL (150-450); RBC 3.56 m/uL (3.80-5.40); RDW 17.8 % (11.5-15.5); WBC 4.2 k/uL (3.8-10.6)
[2020-11-21 10:44] LABS: African American GFR (CKD) >90 (>60 ml/min/1.73 sqM); Blood Urea Nitrogen 19 mg/dL (7-17); Calcium 8.8 mg/dL (8.4-10.2); Chloride 90 mmol/L (98-107); Glucose 151 mg/dL (74-99); Magnesium 1.5 mg/dL (1.6-2.3); Non-African American GFR(CKD) 79 (>60 ml/min/1.73 sqM); Potassium 3.5 mmol/L (3.5-5.1); Sodium 133 mmol/L (137-145)
[2020-11-21 10:51] LABS: Anion Gap 5 mmol/L; Carbon Dioxide 38 mmol/L (22-30)
--- NOTE | 2020-11-21 11:20 | P.PN ---
Subjective This is a pleasant 85 years old female with past medical history of diabetes mellitus, hyperlipidemia. She does not follow up with PCP who presents because of weakness and dyspnea, she fell from bed yesterday morning. She is a patient of Dr. Isha chavez Patient says that she slipped off her bed when trying to get up without losing consciousness or dizziness, she could not lift herself and she has to wait for her sister to call EMS. She complains from exertional dyspnea but She denies chest pain or coughing. Patient noticed to have some dyspnea while talking No diarrhea or abdominal pain or vomiting. She does not complain from urinary symptoms like no dysuria or change in frequency. She denies smoking, alcohol or illicit tracts She was saturating 87% on room air Unremarkable CBC except for mild anemia at 10.6 hemoglobin, INR is 1.1. Unremarkable basic metabolic panel and liver enzymes. The glucose is elevated at 274 Urine analysis is no suspicious of infection but that shows 3+ glucose. Qiu v is not detected. His troponin is elevated 0.063, proBNP is elevated at 4420 She was already started on Lasix 40 mg every 8 hours and aspirin 325 mg daily EKG showing normal sinus rhythm at [address]-T changes. Chest x-ray: CHF, pneumonia cannot be excluded 11/15/2020 Patient breathing is improving gradually. I discussed the case with cartilage team today and the plan for cardiac cath on Wednesday Other than that her creatinine slightly up to 0.9 today which is still within the reference range. Vitals and labs are reviewed Lasix was switched to 40 mg by mouth twice daily by cardiology team as well. 11/16/2020 Patient is doing well clinically with no chest pain or dyspnea but she stent in bed most of the time. She remains on oral Eliquis 40 mg twice daily. Hemoglobin A1c is elevated 11.3 and she was placed on Levemir 3 units at bedtime and 5 units with meals. Her glucose is 140-240 units going to increase insulin with meals to 5 units, BMP and magnesium were stable. Ohcalcitonin is trending down. Patient is planned for cardiac cath on Wednesday11/17/2020 Patient resting comfortably in bed, no specific complaint. Vitals and labs are stable, sugar controlled, continue with same medication of nitish Zhang and Lasix Patient is scheduled for cardiac cath tomorrow with Dr. Montes 11/18/2020 Patient is going for stress test today Family at bedside and their questions were answered. Patient underwent left heart catheterization and possible PCI, it looks like after the procedure patient went to the ICU, Final report of the cardiac cath is pending Vitals are stable this morning, blood pressure 116/63, heart rate 77, breathing rate 20 and she is saturating 92% on 2 L. And she is afebrile.. BMP is unremarkable. It looks like patient was started on brillinta . Patient is also on aspirin Patient has some risk from this procedure but benefits more than risks 11/19/2020 Patient is status post cardiac cath yesterday with report showing critical disease involving very high risk for thrombotic lesion involving the ostial left anterior descending artery, status post successful stenting and with the objective use of impella, however currently patient is with no impella, CBC and BMP are unremarkable and vitals are stable except for tachypnea with rhythm at 1.17-29. She is saturating 98% on 4 L oxygen via nasal cannula Patient currently remains on oral Lasix 40 mg twice daily, aspirin and brillinta. Also she is on metoprolol 25 mg. Sugar is controlled 11/20/2020 Patient was transferred to select unit , Patient last night was agitated and she was given Xanax and placed on restraints for some time, she reprepped her IV line and midline affect be placed today. In the morning she was drowsy but calm, she open eyes to verbal and tactile stimuli and answer a few questions. She denies chest pain or headache or any other complaints. There is no fever and she is hemodynamically stable. CT of the brain was done which was unremarkable for acute event. Cardiology team following the patient and recommended to continue the same treatment and obtained a midline, however patient later on in the evening when I rechecked on the patient nurse told me that she dropped her midline again and she was agitated. We going to order chest x-ray, urinalysis and bladder scan. Order labs in the morning. 11/21/2020 This is a pleasant 85 years old female who presents with ischemic cardiomyopathy with ejection fraction 20%, she underwent cardiac cath with stent placement in the LAD, she monitored in the ICU 4 couple days and then came to the medical floor, over the last 2 days patient was more confused, agitated and she pulled out her midline more than once. And workup showed she has left lower lobe pneumonia and UTI with urinary retention, Celestin catheter was placed last night, Zosyn has been started for possible aspiration pneumonia, speech team were consulted for evaluation for possible aspiration pneumonia. Keep head of bed more than 30. Follow-up urine culture as well. Patient actually today is more calm and awake and oriented, she knows she is in the hospital, she still lethargic. Clamps were unremarkable except for mild hyponatremia and hypomagnesemia. Upon discharge patient will benefit from ECF for rehab. Continue with aspirin and brillinta , so she is on metoprolol 25 mg, she is on insulin 5 mg of Levemir and 5 units of NovoLog with meals. Also she is on Zosyn and oral Lasix 40 mg twice daily. Review of systems CONSTITUTIONAL: No fever, no malaise, no fatigue. HEENT: No recent visual problems or hearing problems. Denied any sore throat. CARDIOVASCULAR: No orthopnea, PND, no palpitations, no syncope. PULMONARY: No shortness of breath, no cough, no hemoptysis. GASTROINTESTINAL: No diarrhea, no nausea, no vomiting, no abdominal pain. Normoactive bowel sounds. NEUROLOGICAL: No headaches, no weakness, no numbness. Active Medications Generic Name Dose Route Start Last Admin Trade Name Freq PRN Reason Stop Dose Admin Hydrocodone Bitart/Acetaminophen 1 each 11/21/20 10:10 Hydrocodone/Apap 5-325mg 1 Each Tab PO Q12HR PRN Pain Al Hydroxide/Mg Hydroxide 30 ml 11/18/20 11:53 Mag Hydrox/Al Hydrox/Simeth 30 Ml Cup PO Q4HR PRN Heartburn Aspirin 81 mg 11/14/20 09:00 11/21/20 09:25 Aspirin 81 Mg PO 81 mg DAILY FELICIA Administration Atorvastatin Calcium 20 mg 11/13/20 21:00 11/20/20 21:12 Atorvastatin 20 Mg Tab PO 20 mg HS FELICIA Administration Atropine Sulfate 0.5 mg 11/18/20 11:53 Atropine Sulfate 0.1 Mg/Ml 10ml Syringe IV ONCE PRN Symptomatic Bradycardia Enoxaparin Sodium 40 mg 11/14/20 09:00 11/21/20 09:26 Enoxaparin 40 Mg/0.4 Ml Syringe SQ 40 mg DAILY FELICIA Administration Famotidine 20 mg 11/15/20 09:00 11/21/20 09:27 Famotidine 20 Mg Tab PO 20 mg DAILY FELICIA Administration Furosemide 40 mg 11/15/20 16:00 11/21/20 09:27 Furosemide 40 Mg Tab PO 40 mg BID@0900,1600 FELICIA Administration Guaifenesin/Dextromethorphan 10 ml 11/21/20 10:12 Guaifenesin-Dm 100-10mg/5ml 10 Ml Cup PO Q6H PRN Cough Piperacillin Sod/Tazobactam 100 mls @ 25 mls/hr 11/20/20 23:00 11/21/20 06:41 Sod 3.375 gm/ Sodium Chloride IVPB 25 mls/hr Q8H FELICIA Administration Insulin Aspart 0 unit 11/13/20 21:00 11/21/20 06:40 Insulin Aspart (Novolog) 100 Unit/Ml Vial SQ 3 unit ACHS FELICIA Administration Protocol Insulin Aspart 5 unit 11/16/20 17:30 11/21/20 08:49 Insulin Aspart (Novolog) 100 Unit/Ml Vial SQ Not Given AC-TID FELICIA Insulin Detemir 5 unit 11/16/20 07:00 11/21/20 06:40 Insulin Detemir (Levemir) 100 Unit/Ml Syr SQ 5 unit DAILY@0700 FELICIA Administration Lisinopril 2.5 mg 11/14/20 09:00 11/21/20 09:30 Lisinopril 2.5 Mg Tab PO 2.5 mg DAILY FELICIA Administration Metoprolol Tartrate 25 mg 11/14/20 21:00 11/21/20 09:28 Metoprolol Tartrate 25 Mg Tab PO 25 mg BID FELICIA Administration Miscellaneous Information 1 each 11/14/20 18:53 Magnesium Replacement Protocol 1 Each Misc MISCELLANE DAILY PRN Per Protocol Protocol Miscellaneous Information 1 each 11/20/20 11:21 Potassium Replacement Protocol 1 Each Misc MISCELLANE DAILY PRN Per Protocol Protocol Nitroglycerin 0.4 mg 11/17/20 16:02 Nitroglycerin Sl Tabs 0.4 Mg Tab SUBLINGUAL Q5M PRN Chest Pain Potassium Chloride 40 meq 11/21/20 12:00 Potassium Chloride Er 20 Meq Tab.Er PO 11/21/20 12:01 ONCE ONE Quetiapine Fumarate 50 mg 11/20/20 10:10 11/21/20 00:56 Quetiapine 50 Mg Tab PO 50 mg BID PRN Administration Agitation Spironolactone 25 mg 11/15/20 10:30 11/21/20 09:28 Spironolactone 25 Mg Tab PO 25 mg DAILY FELICIA Administration Ticagrelor 90 mg 11/18/20 21:00 11/21/20 09:30 Ticagrelor 90 Mg Tab PO 90 mg BID FELICIA Administration Zolpidem Tartrate 5 mg 11/18/20 11:53 11/19/20 22:47 Zolpidem 5 Mg Tab PO 5 mg HS PRN Administration Insomnia Objective - Vital Signs Vital signs: Vital Signs Temp 98.0 F 11/21/20 08:02 Pulse 78 11/21/20 08:02 Resp 24 11/21/20 08:02 BP 137/73 11/21/20 08:02 Pulse Ox 96 11/21/20 04:00 Intake & Output 11/20/20 11/21/20 11/21/20 18:59 06:59 18:59 Intake Total 400 100 Output Total 2500 Balance 400 -2400 Weight 110 kg Intake: IV 400 Potassium Chloride 10 meq 400 In Water For Injection 1 100ml.bag @ 100 mls/hr IVPB Q1HR [facility] Rx#: [id number] Intake, IV Titration 100 Amount Piperacillin-Tazobactam 3 100 .375 gm In Sodium Chloride 0.9% 100 ml @ 25 mls/hr IVPB Q8H [facility] Rx#: [id number] Oral 0 Output: Urine 2500 Other: Voiding Method Indwelling Catheter Indwelling Catheter Indwelling Catheter ABP, PAP, CO, CI - Last Documented Arterial Blood Pressure 121/47 - Exam -GENERAL: The patient is alert but drowsy, easily arousable, not in any acute distress. Obese HEENT: Pupils are round and equally reacting to light. EOMI. No scleral icterus. No conjunctival pallor. Normocephalic, atraumatic. No pharyngeal erythema. No thyromegaly. CARDIOVASCULAR: S1 and S2 present. No murmurs, rubs, or gallops. -PULMONARY: Chest is clear to auscultation, no wheezing. Mild bilateral basal crepitation ABDOMEN: Soft, nontender, nondistended, normoactive bowel sounds. No palpable organomegaly. MUSCULOSKELETAL: No joint swelling or deformity. -EXTREMITIES: No cyanosis, clubbing,. Mild bilateral pitting leg edema NEUROLOGICAL: Gross neurological examination did not reveal any focal deficits. SKIN: No rashes. no petechiae. - Labs CBC & Chem 7: 11/21/20 09:41 11/21/20 09:41 Labs: Abnormal Lab Results - Last 24 Hours (Table) 11/20/20 11/20/20 11/20/20 Range/Units 12:16 16:42 20:27 RBC (3.80-5.40) m/uL Hgb (11.4-16.0) gm/dL Hct (34.0-46.0) % RDW (11.5-15.5) % Lymphocytes # (1.0-4.8) k/uL Sodium (137-145) mmol/L Chloride (98-107) mmol/L Carbon Dioxide (22-30) mmol/L BUN (7-17) mg/dL Glucose (74-99) mg/dL POC Glucose (mg/dL) 172 H 192 H 188 H (75-99) mg/dL Magnesium (1.6-2.3) mg/dL Urine Appearance (Clear) Urine Protein (Negative) Urine Blood (Negative) Ur Leukocyte Esterase (Negative) Urine RBC (0-5) /hpf Urine WBC (0-5) /hpf Urine WBC Clumps (None) /hpf Urine Bacteria (None) /hpf Urine Mucus (None) /hpf 11/20/20 11/21/20 11/21/20 Range/Units 21:30 06:02 09:41 RBC (3.80-5.40) m/uL Hgb (11.4-16.0) gm/dL Hct (34.0-46.0) % RDW (11.5-15.5) % Lymphocytes # (1.0-4.8) k/uL Sodium 133 L (137-145) mmol/L Chloride 90 L (98-107) mmol/L Carbon Dioxide 38 H (22-30) mmol/L BUN 19 H (7-17) mg/dL Glucose 151 H (74-99) mg/dL POC Glucose (mg/dL) 198 H (75-99) mg/dL Magnesium 1.5 L (1.6-2.3) mg/dL Urine Appearance Turbid H (Clear) Urine Protein Trace H (Negative) Urine Blood Large H (Negative) Ur Leukocyte Esterase Large H (Negative) Urine RBC 122 H (0-5) /hpf Urine WBC 142 H (0-5) /hpf Urine WBC Clumps Many H (None) /hpf Urine Bacteria Many H (None) /hpf Urine Mucus Few H (None) /hpf 11/21/20 Range/Units 09:41 RBC 3.56 L (3.80-5.40) m/uL Hgb 9.3 L (11.4-16.0) gm/dL Hct 29.7 L (34.0-46.0) % RDW 17.8 H (11.5-15.5) % Lymphocytes # 0.5 L (1.0-4.8) k/uL Sodium (137-145) mmol/L Chloride (98-107) mmol/L Carbon Dioxide (22-30) mmol/L BUN (7-17) mg/dL Glucose (74-99) mg/dL POC Glucose (mg/dL) (75-99) mg/dL Magnesium (1.6-2.3) mg/dL Urine Appearance (Clear) Urine Protein (Negative) Urine Blood (Negative) Ur Leukocyte Esterase (Negative) Urine RBC (0-5) /hpf Urine WBC (0-5) /hpf Urine WBC Clumps (None) /hpf Urine Bacteria (None) /hpf Urine Mucus (None) /hpf Assessment and Plan Assessment: Left lower lobe hospital-acquired pneumonia Acute urinary tract infection with urinary retention. Status post Celestin catheter Confusion, secondary to metabolic encephalopathy New onset acute systolic CHF Elevated troponin, rule out and STEMI. Mostly troponin leak from myocardial injury as per tile ditcher Acute hypoxic respiratory failure secondary to above Mechanical fall without loss of consciousness Diabetes mellitus, type II. With hyperglycemia Hyperlipidemia Morbid obesity with BMI 53 Plan: This is a pleasant 85 years old female who presents with acute CHF with ejection fraction less than 20%. Status post stent placement to the LAD. Also with pneumonia/UTI. Continue with diuretics. Continuous cardiology consult recommendation. Continue with aspirin. And brillinta. Continue with Zosyn. Continue with Celestin catheter. Follow up urine culture. Head of bed or the 30 Labs and medication were reviewed.. Continue same treatment. Continue with symptomatic treatment. Resume home medication. Monitor lytes and vitals. DVT and GI prophylaxis. Further recommendations as per clinical course of the patient DVT prophylaxis: Subcutaneous heparin GI Prophylaxis: Pepcid PT/OT: ECF open discharge Prognosis is guarded
[2020-11-21 11:44] LABS: Glucose,Whole Blood 227 mg/dL (75-99)
[2020-11-21] MEDS: MAGNESIUM SULFATE-D5W PMX 1 GM in DEXTROSE/WATER 1 100ML.BAG IVPB SCH ×2 (11:46→13:21)
--- NOTE | 2020-11-21 11:47 | P.PN ---
Subjective This is a pleasant 85 years old female with past medical history of diabetes mellitus, hyperlipidemia. She does not follow up with PCP who presents because of weakness and dyspnea, she fell from bed yesterday morning. She is a patient of Dr. Isha chavez Patient says that she slipped off her bed when trying to get up without losing consciousness or dizziness, she could not lift herself and she has to wait for her sister to call EMS. She complains from exertional dyspnea but She denies chest pain or coughing. Patient noticed to have some dyspnea while talking No diarrhea or abdominal pain or vomiting. She does not complain from urinary symptoms like no dysuria or change in frequency. She denies smoking, alcohol or illicit tracts She was saturating 87% on room air Unremarkable CBC except for mild anemia at 10.6 hemoglobin, INR is 1.1. Unremarkable basic metabolic panel and liver enzymes. The glucose is elevated at 274 Urine analysis is no suspicious of infection but that shows 3+ glucose. Qiu v is not detected. His troponin is elevated 0.063, proBNP is elevated at 4420 She was already started on Lasix 40 mg every 8 hours and aspirin 325 mg daily EKG showing normal sinus rhythm at [address]-T changes. Chest x-ray: CHF, pneumonia cannot be excluded 11/15/2020 Patient breathing is improving gradually. I discussed the case with cartilage team today and the plan for cardiac cath on Wednesday Other than that her creatinine slightly up to 0.9 today which is still within the reference range. Vitals and labs are reviewed Lasix was switched to 40 mg by mouth twice daily by cardiology team as well. 11/16/2020 Patient is doing well clinically with no chest pain or dyspnea but she stent in bed most of the time. She remains on oral Eliquis 40 mg twice daily. Hemoglobin A1c is elevated 11.3 and she was placed on Levemir 3 units at bedtime and 5 units with meals. Her glucose is 140-240 units going to increase insulin with meals to 5 units, BMP and magnesium were stable. Ohcalcitonin is trending down. Patient is planned for cardiac cath on Wednesday11/17/2020 Patient resting comfortably in bed, no specific complaint. Vitals and labs are stable, sugar controlled, continue with same medication of nitish Zhang and Lasix Patient is scheduled for cardiac cath tomorrow with Dr. Montes 11/18/2020 Patient is going for stress test today Family at bedside and their questions were answered. Patient underwent left heart catheterization and possible PCI, it looks like after the procedure patient went to the ICU, Final report of the cardiac cath is pending Vitals are stable this morning, blood pressure 116/63, heart rate 77, breathing rate 20 and she is saturating 92% on 2 L. And she is afebrile.. BMP is unremarkable. It looks like patient was started on brillinta . Patient is also on aspirin Patient has some risk from this procedure but benefits more than risks 11/19/2020 Patient is status post cardiac cath yesterday with report showing critical disease involving very high risk for thrombotic lesion involving the ostial left anterior descending artery, status post successful stenting and with the objective use of impella, however currently patient is with no impella, CBC and BMP are unremarkable and vitals are stable except for tachypnea with rhythm at 1.17-29. She is saturating 98% on 4 L oxygen via nasal cannula Patient currently remains on oral Lasix 40 mg twice daily, aspirin and brillinta. Also she is on metoprolol 25 mg. Sugar is controlled 11/20/2020 Patient was transferred to select unit , Patient last night was agitated and she was given Xanax and placed on restraints for some time, she reprepped her IV line and midline affect be placed today. In the morning she was drowsy but calm, she open eyes to verbal and tactile stimuli and answer a few questions. She denies chest pain or headache or any other complaints. There is no fever and she is hemodynamically stable. CT of the brain was done which was unremarkable for acute event. Cardiology team following the patient and recommended to continue the same treatment and obtained a midline, however patient later on in the evening when I rechecked on the patient nurse told me that she dropped her midline again and she was agitated. We going to order chest x-ray, urinalysis and bladder scan. Order labs in the morning. 11/21/2020 This is a pleasant 85 years old female who presents with ischemic cardiomyopathy with ejection fraction 20%, she underwent cardiac cath with stent placement in the LAD, she monitored in the ICU 4 couple days and then came to the medical floor, over the last 2 days patient was more confused, agitated and she pulled out her midline more than once. And workup showed she has left lower lobe pneumonia and UTI with urinary retention, Celestin catheter was placed last night, Zosyn has been started for possible aspiration pneumonia, speech team were consulted for evaluation for possible aspiration pneumonia. Keep head of bed more than 30. Follow-up urine culture as well. Patient actually today is more calm and awake and oriented, she knows she is in the hospital, she still lethargic. Clamps were unremarkable except for mild hyponatremia and hypomagnesemia. Troponin is opted to today. EKG no change. Cardiology are aware. No further recommendation per staff Upon discharge patient will benefit from ECF for rehab. Continue with aspirin and brillinta , so she is on metoprolol 25 mg, she is on insulin 5 mg of Levemir and 5 units of NovoLog with meals. Also she is on Zosyn and oral Lasix 40 mg twice daily. Review of systems CONSTITUTIONAL: No fever, no malaise, no fatigue. HEENT: No recent visual problems or hearing problems. Denied any sore throat. CARDIOVASCULAR: No orthopnea, PND, no palpitations, no syncope. PULMONARY: No shortness of breath, no cough, no hemoptysis. GASTROINTESTINAL: No diarrhea, no nausea, no vomiting, no abdominal pain. Normoactive bowel sounds. NEUROLOGICAL: No headaches, no weakness, no numbness. Active Medications Generic Name Dose Route Start Last Admin Trade Name Freq PRN Reason Stop Dose Admin Hydrocodone Bitart/Acetaminophen 1 each 11/21/20 10:10 Hydrocodone/Apap 5-325mg 1 Each Tab PO Q12HR PRN Pain Al Hydroxide/Mg Hydroxide 30 ml 11/18/20 11:53 Mag Hydrox/Al Hydrox/Simeth 30 Ml Cup PO Q4HR PRN Heartburn Aspirin 81 mg 11/14/20 09:00 11/21/20 09:25 Aspirin 81 Mg PO 81 mg DAILY [facility] Administration Atorvastatin Calcium 20 mg 11/13/20 21:00 11/20/20 21:12 Atorvastatin 20 Mg Tab PO 20 mg HS [facility] Administration Atropine Sulfate 0.5 mg 11/18/20 11:53 Atropine Sulfate 0.1 Mg/Ml 10ml Syringe IV ONCE PRN Symptomatic Bradycardia Enoxaparin Sodium 40 mg 11/14/20 09:00 11/21/20 09:26 Enoxaparin 40 Mg/0.4 Ml Syringe SQ 40 mg DAILY [facility] Administration Famotidine 20 mg 11/15/20 09:00 11/21/20 09:27 Famotidine 20 Mg Tab PO 20 mg DAILY [facility] Administration Furosemide 40 mg 11/15/20 16:00 11/21/20 09:27 Furosemide 40 Mg Tab PO 40 mg BID@0900,1600 [facility] Administration Guaifenesin/Dextromethorphan 10 ml 11/21/20 10:12 Guaifenesin-Dm 100-10mg/5ml 10 Ml Cup PO Q6H PRN Cough Piperacillin Sod/Tazobactam 100 mls @ 25 mls/hr 11/20/20 23:00 11/21/20 06:41 Sod 3.375 gm/ Sodium Chloride IVPB 25 mls/hr Q8H [facility] Administration Insulin Aspart 0 unit 11/13/20 21:00 11/21/20 06:40 Insulin Aspart (Novolog) 100 Unit/Ml Vial SQ 3 unit ACHS [facility] Administration Protocol Insulin Aspart 5 unit 11/16/20 17:30 11/21/20 08:49 Insulin Aspart (Novolog) 100 Unit/Ml Vial SQ Not Given [facility] Insulin Detemir 5 unit 11/16/20 07:00 11/21/20 06:40 Insulin Detemir (Levemir) 100 Unit/Ml Syr SQ 5 unit DAILY@0700 [facility] Administration Lisinopril 2.5 mg 11/14/20 09:00 11/21/20 09:30 Lisinopril 2.5 Mg Tab PO 2.5 mg DAILY [facility] Administration Metoprolol Tartrate 25 mg 11/14/20 21:00 11/21/20 09:28 Metoprolol Tartrate 25 Mg Tab PO 25 mg BID F[facility]IA Administration Miscellaneous Information 1 each 11/14/20 18:53 Magnesium Replacement Protocol 1 Each [facility] [place] MISCELLANE DAILY PRN Per Protocol Protocol Miscellaneous Information 1 each 11/20/20 11:21 Potassium Replacement Protocol 1 Each [facility] MISCELLANE DAILY PRN Per Protocol Protocol Nitroglycerin 0.4 mg 11/17/20 16:02 Nitroglycerin Sl Tabs 0.4 Mg Tab SUBLINGUAL Q5M PRN Chest Pain Potassium Chloride 40 meq 11/21/20 12:00 Potassium Chloride Er 20 Meq Tab.Er PO 11/21/20 12:01 ONCE ONE Quetiapine Fumarate 50 mg 11/20/20 10:10 11/21/20 00:56 Quetiapine 50 Mg Tab PO 50 mg BID PRN Administration Agitation Spironolactone 25 mg 11/15/20 10:30 11/21/20 09:28 Spironolactone 25 Mg Tab PO 25 mg DAILY [facility] Administration Ticagrelor 90 mg 11/18/20 21:00 11/21/20 09:30 Ticagrelor 90 Mg Tab PO 90 mg BID FELICIA Administration Zolpidem Tartrate 5 mg 11/18/20 11:53 11/19/20 22:47 Zolpidem 5 Mg Tab PO 5 mg HS PRN Administration Insomnia Objective - Vital Signs Vital signs: Vital Signs Temp 98.0 F 11/21/20 08:02 Pulse 78 11/21/20 08:02 Resp 24 11/21/20 08:02 BP 137/73 11/21/20 08:02 Pulse Ox 96 11/21/20 04:00 Intake & Output 11/20/20 11/21/20 11/21/20 18:59 06:59 18:59 Intake Total 400 100 Output Total 2500 Balance 400 -2400 Weight 110 kg Intake: IV 400 Potassium Chloride 10 meq 400 In Water For Injection 1 100ml.bag @ 100 mls/hr IVPB Q1HR [facility] Rx#: [id number] Intake, IV Titration 100 Amount Piperacillin-Tazobactam 3 100 .375 gm In Sodium Chloride 0.9% 100 ml @ 25 mls/hr IVPB Q8H [facility] Rx#: [id number] Oral 0 Output: Urine 2500 Other: Voiding Method Indwelling Catheter Indwelling Catheter Indwelling Catheter ABP, PAP, CO, CI - Last Documented Arterial Blood Pressure 121/47 - Exam -GENERAL: The patient is alert but drowsy, easily arousable, not in any acute distress. Obese HEENT: Pupils are round and equally reacting to light. EOMI. No scleral icterus. No conjunctival pallor. Normocephalic, atraumatic. No pharyngeal erythema. No thyromegaly. CARDIOVASCULAR: S1 and S2 present. No murmurs, rubs, or gallops. -PULMONARY: Chest is clear to auscultation, no wheezing. Mild bilateral basal c repitation ABDOMEN: Soft, nontender, nondistended, normoactive bowel sounds. No palpable organomegaly. MUSCULOSKELETAL: No joint swelling or deformity. -EXTREMITIES: No cyanosis, clubbing,. Mild bilateral pitting leg edema NEUROLOGICAL: Gross neurological examination did not reveal any focal deficits. SKIN: No rashes. no petechiae. - Labs CBC & Chem 7: 11/21/20 09:41 11/21/20 09:41 Labs: Abnormal Lab Results - Last 24 Hours (Table) 11/20/20 11/20/20 11/20/20 Range/Units 12:16 16:42 20:27 RBC (3.80-5.40) m/uL Hgb (11.4-16.0) gm/dL Hct (34.0-46.0) % RDW (11.5-15.5) % Lymphocytes # (1.0-4.8) k/uL Sodium (137-145) mmol/L Chloride (98-107) mmol/L Carbon Dioxide (22-30) mmol/L BUN (7-17) mg/dL Glucose (74-99) mg/dL POC Glucose (mg/dL) 172 H 192 H 188 H (75-99) mg/dL Magnesium (1.6-2.3) mg/dL Troponin I (0.000-0.034) ng/mL Urine Appearance (Clear) Urine Protein (Negative) Urine Blood (Negative) Ur Leukocyte Esterase (Negative) Urine RBC (0-5) /hpf Urine WBC (0-5) /hpf Urine WBC Clumps (None) /hpf Urine Bacteria (None) /hpf Urine Mucus (None) /hpf 11/20/20 11/21/20 11/21/20 Range/Units 21:30 06:02 09:41 RBC (3.80-5.40) m/uL Hgb (11.4-16.0) gm/dL Hct (34.0-46.0) % RDW (11.5-15.5) % Lymphocytes # (1.0-4.8) k/uL Sodium 133 L (137-145) mmol/L Chloride 90 L (98-107) mmol/L Carbon Dioxide 38 H (22-30) mmol/L BUN 19 H (7-17) mg/dL Glucose 151 H (74-99) mg/dL POC Glucose (mg/dL) 198 H (75-99) mg/dL Magnesium 1.5 L (1.6-2.3) mg/dL Troponin I (0.000-0.034) ng/mL Urine Appearance Turbid H (Clear) Urine Protein Trace H (Negative) Urine Blood Large H (Negative) Ur Leukocyte Esterase Large H (Negative) Urine RBC 122 H (0-5) /hpf Urine WBC 142 H (0-5) /hpf Urine WBC Clumps Many H (None) /hpf Urine Bacteria Many H (None) /hpf Urine Mucus Few H (None) /hpf 11/21/20 11/21/20 Range/Units 09:41 09:41 RBC 3.56 L (3.80-5.40) m/uL Hgb 9.3 L (11.4-16.0) gm/dL Hct 29.7 L (34.0-46.0) % RDW 17.8 H (11.5-15.5) % Lymphocytes # 0.5 L (1.0-4.8) k/uL Sodium (137-145) mmol/L Chloride (98-107) mmol/L Carbon Dioxide (22-30) mmol/L BUN (7-17) mg/dL Glucose (74-99) mg/dL POC Glucose (mg/dL) (75-99) mg/dL Magnesium (1.6-2.3) mg/dL Troponin I 2.090 H* (0.000-0.034) ng/mL Urine Appearance (Clear) Urine Protein (Negative) Urine Blood (Negative) Ur Leukocyte Esterase (Negative) Urine RBC (0-5) /hpf Urine WBC (0-5) /hpf Urine WBC Clumps (None) /hpf Urine Bacteria (None) /hpf Urine Mucus (None) /hpf Assessment and Plan Assessment: Left lower lobe hospital-acquired pneumonia Acute urinary tract infection with urinary retention. Status post Celestin catheter Confusion, secondary to metabolic encephalopathy New onset acute systolic CHF Elevated troponin, non STEMI. Status post cardiac cath and stent placement to the LAD Acute hypoxic respiratory failure secondary to above Mechanical fall without loss of consciousness Diabetes mellitus, type II. With hyperglycemia Hyperlipidemia Morbid obesity with BMI 53 Plan: This is a pleasant 85 years old female who presents with acute CHF with ejection fraction less than 20%. Status post stent placement to the LAD. Also with pneu monia/UTI. Continue with diuretics. Continuous cardiology consult recommendation. Continue with aspirin. And brillinta. Continue with Zosyn. Continue with Celestin catheter. Follow up urine culture. Head of bed or the 30 Labs and medication were reviewed.. Continue same treatment. Continue with symptomatic treatment. Resume home medication. Monitor lytes and vitals. DVT and GI prophylaxis. Further recommendations as per clinical course of the patient DVT prophylaxis: Subcutaneous heparin GI Prophylaxis: Pepcid PT/OT: ECF open discharge Prognosis is guarded
[2020-11-21] MEDS ORDERED: POTASSIUM CHLORIDE ER 20 MEQ TAB.ER PO ONE (12:00)
--- NOTE | 2020-11-21 13:54 | P.PN ---
Subjective Progress Note Date: 11/21/20 HISTORY OF PRESENT ILLNESS: 11/13/2020 This is a 85-year-old female with a past medical history significant for diabetes mellitus, hyperlipidemia, and former nicotine dependence. Patient does not follow with a patient assessment coordinator. We have been asked to see the patient in consultation for pulmonary edema. Patient examined at the bedside in the emergency room. Patient is currently alert and oriented 1. Patient is unable to give much history. Patient thinks that she is at home at the time of examination. When patient was reoriented and told why she was in the hospital she was unable to tell me why she came to the hospital or who brought her here. Patient currently denies chest pain or pressure. She denies shortness of breath. She denies dizziness or lightheadedness. Patient was found to be in pulmonary edema and was started on IV Lasix. Preliminary echocardiogram complet ed in the emergency room reveals ejection fraction 20-25% and moderate aortic stenosis. EKG reveals sinus mechanism with nonspecific changes. First degree AV block. Left axis deviation. Chest xray cardiomegaly with pulmonary venous congestion and scattered infiltrates. Findings may reflect early congestive heart failure although infiltrates and other etiologies are not excluded. Laboratory data: WBC 3.9. Hemoglobin 10.6. Platelet count 337. Sodium 137. Potassium 4.1. BUN 15. Creatinine 0.66. BNP 4420. Troponin 0.063. 0.061. Current home cardiac medications include simvastatin 40 mg daily 11/14/2020 Patient examined this morning at the bedside. Patient is less confused today. Patient denies chest pain or pressure. She denies shortness of breath. Echocardiogram completed revealed ejection fraction 20-25%, global hypokinesis with only inferior lateral wall moving, apex is akinetic, moderate aortic stenosis, mild mitral regurgitation, mild tricuspid regurgitation, and moderate pulmonary hypertension 11/15/2020 Patient examined this morning at the bedside. Patient denies chest pain or pressure. Denies shortness of breath. Remains on lasix 40mg PO Q8 hours. BUN 21. Creatinine 0.92. Chest x-ray yesterday reveals residual volume overload. 11/16/2020 Patient examined this morning at the bedside. Patient denies chest pain or pressure. She denies shortness of breath at rest. She states she has not been out of bed today. She also states she did not get out of bed yesterday. She remains on oral Lasix 40 mg twice a day. blood pressure 106/61. Heart rate in the 80s. potassium 3.9. Magnesium 2.0. BUN 26. Creatinine 0.73. 11/17/2020 Patient examined this morning the bedside. Patient denies chest pain or pressure. She denies shortness of breath. Patient has not been getting out of bed and ambulating a lot. Her vital signs are stable. 11/19/2020 Patient examined this morning at the bedside. She is in the ICU. She underwent cardiac cath yesterday with Dr. Montes revealing critical disease involving very high risk for thrombotic lesion involving the ostial left anterior descending artery, right from the takeoff from the left main. Mild disease involving the left circumflex coronary artery. Nondominant right coronary artery. Successful stenting of the ostial and proximal LAD with adjunctive use of impella. Patient was confused overnight. She required use of restraints overnight. She was also given Ambien. Patient remains confused this morning. She is somewhat lethargic. She was receiving IV fluids overnight which has been discontinued this morning. 11/20/2020 Patient has been transferred out of the ICU to . Patient was confused overnight and pulled over her IV. She denies chest pain or pressure. She denies shortness of breath. blood pressure 141/65. Heart rate in the 60s. She is on 4 L nasal cannula with oxygen saturations greater than 92%. Potassium 3.2. 11/21/2020 patient examined this morning the bedside. Patient is more awake and communicative today. Prior to my examination patient apparently had some pleuritic chest pain. EKG was obtained by nursing which did not show any acute ischemic changes. At the time of my examination, the patient denies any chest pain or pressure. She denies shortness of breath. blood pressure 100/54. Heart rate in the 70s. PHYSICAL EXAM: VITAL SIGNS: Reviewed. GENERAL: Well-developed in no acute distress. HEENT: Head is normocephalic. Pupils are equal, round. Sclerae anicteric. Mucous membranes of the mouth are moist. Neck supple. No JVD or thyromegaly LUNGS: Respirations even and unlabored. Lungs diminished bilaterally. HEART: Regular rate and rhythm. S1 and S2 heard. Soft systolic murmur noted. EXTREMITIES: Normal range of motion. No clubbing or cyanosis. Peripheral pulses intact. Trace bilateral lower extremity edema ASSESSMENT: Left lower lobe hospital acquired pneumonia Acute systolic heart failure, EF 20-25%, BNP 4420 Ischemic cardiomyopathy, status post cardiac catheterization with PCI to ostial and proximal LAD Moderate aortic stenosis Diabetes mellitus Hypertension Former nicotine dependence Morbid obesity, BMI 52.9 PLAN: Continue simvastatin, aspirin, brilinta, lisinopril, and metoprolol Continue oral lasix and Aldactone Daily weights Accurate I&O Monitor kidney function Patient had troponin level drawn this morning was abnormal at 2.090. Will obtain an additional troponin level. Patient is not a candidate for another cardiac catheterization as she remains confused and is being treated for pneumonia Further recommendations pending patient's course Nurse practitioner note has been reviewed by physician. Signing provider agrees with the documented findings, assessment, and plan of care. Objective - Vital Signs Vital signs: Vital Signs Temp 98 F 11/21/20 12:59 Pulse 78 11/21/20 12:59 Resp 16 11/21/20 12:59 BP 100/54 11/21/20 12:59 Pulse Ox 99 11/21/20 12:59 Intake & Output 11/20/20 11/21/20 11/21/20 18:59 06:59 18:59 Intake Total 400 100 Output Total 2500 700 Balance 400 -2400 -700 Weight 110 kg Intake: IV 400 Potassium Chloride 10 meq 400 In Water For Injection 1 100ml.bag @ 100 mls/hr IVPB Q1HR [facility] Rx#: [id number] Intake, IV Titration 100 Amount Piperacillin-Tazobactam 3 100 .375 gm In Sodium Chloride 0.9% 100 ml @ 25 mls/hr IVPB Q8H [facility] Rx#: [id number] Oral 0 Output: Urine 2500 700 Other: Voiding Method Indwelling Catheter Indwelling Catheter Indwelling Catheter ABP, PAP, CO, CI - Last Documented Arterial Blood Pressure 121/47 - Labs CBC & Chem 7: 11/21/20 09:41 11/21/20 09:41 Labs: Abnormal Lab Results - Last 24 Hours (Table) 11/20/20 11/20/20 11/20/20 Range/Units 16:42 20:27 21:30 RBC (3.80-5.40) m/uL Hgb (11.4-16.0) gm/dL Hct (34.0-46.0) % RDW (11.5-15.5) % Lymphocytes # (1.0-4.8) k/uL Sodium (137-145) mmol/L Chloride (98-107) mmol/L Carbon Dioxide (22-30) mmol/L BUN (7-17) mg/dL Glucose (74-99) mg/dL POC Glucose (mg/dL) 192 H 188 H (75-99) mg/dL Magnesium (1.6-2.3) mg/dL Troponin I (0.000-0.034) ng/mL Urine Appearance Turbid H (Clear) Urine Protein Trace H (Negative) Urine Blood Large H (Negative) Ur Leukocyte Esterase Large H (Negative) Urine RBC 122 H (0-5) /hpf Urine WBC 142 H (0-5) /hpf Urine WBC Clumps Many H (None) /hpf Urine Bacteria Many H (None) /hpf Urine Mucus Few H (None) /hpf 11/21/20 11/21/20 11/21/20 Range/Units 06:02 09:41 09:41 RBC (3.80-5.40) m/uL Hgb (11.4-16.0) gm/dL Hct (34.0-46.0) % RDW (11.5-15.5) % Lymphocytes # (1.0-4.8) k/uL Sodium 133 L (137-145) mmol/L Chloride 90 L (98-107) mmol/L Carbon Dioxide 38 H (22-30) mmol/L BUN 19 H (7-17) mg/dL Glucose 151 H (74-99) mg/dL POC Glucose (mg/dL) 198 H (75-99) mg/dL Magnesium 1.5 L (1.6-2.3) mg/dL Troponin I 2.090 H* (0.000-0.034) ng/mL Urine Appearance (Clear) Urine Protein (Negative) Urine Blood (Negative) Ur Leukocyte Esterase (Negative) Urine RBC (0-5) /hpf Urine WBC (0-5) /hpf Urine WBC Clumps (None) /hpf Urine Bacteria (None) /hpf Urine Mucus (None) /hpf 11/21/20 11/21/20 Range/Units 09:41 11:33 RBC 3.56 L (3.80-5.40) m/uL Hgb 9.3 L (11.4-16.0) gm/dL Hct 29.7 L (34.0-46.0) % RDW 17.8 H (11.5-15.5) % Lymphocytes # 0.5 L (1.0-4.8) k/uL Sodium (137-145) mmol/L Chloride (98-107) mmol/L Carbon Dioxide (22-30) mmol/L BUN (7-17) mg/dL Glucose (74-99) mg/dL POC Glucose (mg/dL) 227 H (75-99) mg/dL Magnesium (1.6-2.3) mg/dL Troponin I (0.000-0.034) ng/mL Urine Appearance (Clear) Urine Protein (Negative) Urine Blood (Negative) Ur Leukocyte Esterase (Negative) Urine RBC (0-5) /hpf Urine WBC (0-5) /hpf Urine WBC Clumps (None) /hpf Urine Bacteria (None) /hpf Urine Mucus (None) /hpf
--- NOTE | 2020-11-21 15:40 | FL ---
EXAMINATION TYPE: FL barium swallow w video DATE OF EXAM: 11/21/2020 COMPARISON: NONE HISTORY: Bedside failed swallow study TECHNIQUE: Fluoroscopy. FINDINGS: Fluoroscopic guidance was provided for the procedure performed in conjunction with the [facility] pathology department. Please see complete report forthcoming from the Speech Pathology departmen t. Various consistencies from thin liquid to solids were administered. Fluoroscopy time 2 minutes 9 seconds. Number of images: 0 No aspiration or penetration was evident. No significant pooling was observed in the vallecula. There was normal propulsion of the bolus. IMPRESSION: 1. Normal modified barium swallow
[2020-11-21 17:15] LABS: Glucose,Whole Blood 202 mg/dL (75-99)
[2020-11-21 20:48] LABS: Glucose,Whole Blood 221 mg/dL (75-99)
[2020-11-21] MEDS: ATORVASTATIN 20 MG TAB PO SCH (21:43)
[2020-11-22 06:15] LABS: Glucose,Whole Blood 158 mg/dL (75-99)
[2020-11-22] MEDS: PIPERACILLIN-TAZOBACTAM 3.375 GM in SODIUM CHLORIDE 0.9% 100 ML IVPB SCH ×3 (06:36→22:40)
[2020-11-22] MEDS: INSULIN ASPART (NovoLOG) 100 UNIT/ML VIAL SQ SCH ×7 (06:36→20:40)
[2020-11-22] MEDS: INSULIN DETEMIR (LEVEMIR) 100 UNIT/ML SYR SQ SCH (06:37)
[2020-11-22 08:45] LABS: Anisocytosis Slight; Basophils % (A) 0 %; Eosinophils # (A) 0.2 k/uL (0-0.7); Eosinophils % (A) 5 %; HCT 31.4 % (34.0-46.0); HGB 9.8 gm/dL (11.4-16.0); Hypochromasia Moderate; Lymphocytes # (A) 0.6 k/uL (1.0-4.8); Lymphocytes % (A) 14 %; MCH 26.5 pg (25.0-35.0); MCHC 31.3 g/dL (31.0-37.0); MCV 84.7 fL (80.0-100.0); Mean Platelet Volume 7.9; Monocytes # (A) 0.3 k/uL (0-1.0); Monocytes % (A) 7 %; Neutrophils # (A) 2.9 k/uL (1.3-7.7); Neutrophils % (A) 72 %; Platelet Count 336 k/uL (150-450); RBC 3.71 m/uL (3.80-5.40); RDW 18.1 % (11.5-15.5); WBC 4.1 k/uL (3.8-10.6)
[2020-11-22 09:01] LABS: Calcium 9.2 mg/dL (8.4-10.2); Magnesium 2.1 mg/dL (1.6-2.3); Potassium 3.9 mmol/L (3.5-5.1)
[2020-11-22] MEDS: ASPIRIN 81 MG PO SCH (09:53)
[2020-11-22] MEDS: ENOXAPARIN 40 MG/0.4 ML SYRINGE SQ SCH (09:53)
[2020-11-22] MEDS: TICAGRELOR 90 MG TAB PO SCH ×2 (09:53→20:40)
[2020-11-22] MEDS: FAMOTIDINE 20 MG TAB PO SCH (09:53)
[2020-11-22] MEDS: FUROSEMIDE 40 MG TAB PO SCH ×2 (09:53→16:45)
[2020-11-22] MEDS: SPIRONOLACTONE 25 MG TAB PO SCH (09:53)
[2020-11-22] MEDS: METOPROLOL TARTRATE 25 MG TAB PO SCH ×2 (09:56→20:40)
[2020-11-22 11:45] LABS: Glucose,Whole Blood 167 mg/dL (75-99)
--- NOTE | 2020-11-22 12:47 | P.PN ---
Subjective Progress Note Date: 11/22/20 HISTORY OF PRESENT ILLNESS: 11/13/2020 This is a 85-year-old female with a past medical history significant for diabetes mellitus, hyperlipidemia, and former nicotine dependence. 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 We have been asked to see the patient in consultation for pulmonary edema. Patient examined at the bedside in the emergency room. Patient is currently alert and oriented 1. Patient is unable to give much history. Patient thinks that she is at home at the time of examination. When patient was reoriented and told why she was in the hospital she was unable to tell me why she came to the hospital or who brought her here. Patient currently denies chest pain or pressure. She denies shortness of breath. She denies dizziness or lightheadedness. Patient was found to be in pulmonary edema and was started on IV Lasix. Preliminary echocardiogram complet ed in the emergency room reveals ejection fraction 20-25% and moderate aortic stenosis. EKG reveals sinus mechanism with nonspecific changes. First degree AV block. Left axis deviation. Chest xray cardiomegaly with pulmonary venous congestion and scattered infiltrates. Findings may reflect early congestive heart failure although infiltrates and other etiologies are not excluded. Laboratory data: WBC 3.9. Hemoglobin 10.6. Platelet count 337. Sodium 137. Potassium 4.1. BUN 15. Creatinine 0.66. BNP 4420. Troponin 0.063. 0.061. Current home cardiac medications include simvastatin 40 mg daily 11/14/2020 Patient examined this morning at the bedside. Patient is less confused today. Patient denies chest pain or pressure. She denies shortness of breath. Echocardiogram completed revealed ejection fraction 20-25%, global hypokinesis with only inferior lateral wall moving, apex is akinetic, moderate aortic stenosis, mild mitral regurgitation, mild tricuspid regurgitation, and moderate pulmonary hypertension 11/15/2020 Patient examined this morning at the bedside. Patient denies chest pain or pressure. Denies shortness of breath. Remains on lasix 40mg PO Q8 hours. BUN 21. Creatinine 0.92. Chest x-ray yesterday reveals residual volume overload. 11/16/2020 Patient examined this morning at the bedside. Patient denies chest pain or pressure. She denies shortness of breath at rest. She states she has not been out of bed today. She also states she did not get out of bed yesterday. She remains on oral Lasix 40 mg twice a day. blood pressure 106/61. Heart rate in the 80s. potassium 3.9. Magnesium 2.0. BUN 26. Creatinine 0.73. 11/17/2020 Patient examined this morning the bedside. Patient denies chest pain or pressure. She denies shortness of breath. Patient has not been getting out of bed and ambulating a lot. Her vital signs are stable. 11/19/2020 Patient examined this morning at the bedside. She is in the ICU. She underwent cardiac cath yesterday with Dr. Montes revealing critical disease involving very high risk for thrombotic lesion involving the ostial left anterior descending artery, right from the takeoff from the left main. Mild disease involving the left circumflex coronary artery. Nondominant right coronary artery. Successful stenting of the ostial and proximal LAD with adjunctive use of impella. Patient was confused overnight. She required use of restraints overnight. She was also given Ambien. Patient remains confused this morning. She is somewhat lethargic. She was receiving IV fluids overnight which has been discontinued this morning. 11/20/2020 Patient has been transferred out of the ICU to . Patient was confused overnight and pulled over her IV. She denies chest pain or pressure. She denies shortness of breath. blood pressure 141/65. Heart rate in the 60s. She is on 4 L nasal cannula with oxygen saturations greater than 92%. Potassium 3.2. 11/21/2020 patient examined this morning the bedside. Patient is more awake and communicative today. Prior to my examination patient apparently had some pleuritic chest pain. EKG was obtained by nursing which did not show any acute ischemic changes. At the time of my examination, the patient denies any chest pain or pressure. She denies shortness of breath. blood pressure 100/54. Heart rate in the 70s. 11/22/2020 Patient examined this morning at the bedside. Patient is awake and alert. Patient's confusion has resolved. She denies any chest pain or pressure. She denies shortness of breath. She is on room air with oxygen saturations greater than 92%. Blood pressure 97/58. Heart rate in the 70s. She is afebrile. She's maintaining sinus mechanism on telemetry. PHYSICAL EXAM: VITAL SIGNS: Reviewed. GENERAL: Well-developed in no acute distress. HEENT: Head is normocephalic. Pupils are equal, round. Sclerae anicteric. Mucous membranes of the mouth are moist. Neck supple. No JVD or thyromegaly LUNGS: Respirations even and unlabored. Lungs diminished bilaterally. HEART: Regular rate and rhythm. S1 and S2 heard. Soft systolic murmur noted. EXTREMITIES: Normal range of motion. No clubbing or cyanosis. Peripheral pulses intact. No lower extremity edema ASSESSMENT: Left lower lobe hospital acquired pneumonia Acute systolic heart failure, EF 20-25%, BNP 4420 Ischemic cardiomyopathy, status post cardiac catheterization with PCI to ostial and proximal LAD Moderate aortic stenosis Diabetes mellitus Hypertension Former nicotine dependence Morbid obesity, BMI 52.9 PLAN: Continue current cardiac medications Patient is stable from a cardiac standpoint She is to follow up outpatient with Dr. Álvarez Nurse practitioner note has been reviewed by physician. Signing provider agrees with the documented findings, assessment, and plan of care. Objective - Vital Signs Vital signs: Vital Signs Temp 98.0 F 11/22/20 08:07 Pulse 80 11/22/20 08:07 Resp 17 11/22/20 08:07 BP 97/58 11/22/20 08:07 Pulse Ox 98 11/22/20 08:07 Intake & Output 11/21/20 11/22/20 11/22/20 18:59 06:59 18:59 Intake Total 125 130 250 Output Total 1200 500 Balance -1075 -370 250 Weight 105.7 kg Intake: IV 30 Invasive Line 10 30 Oral 125 100 250 Output: Urine 1200 500 Uretheral (Celestin) 500 Other: Voiding Method Indwelling Catheter Indwelling Catheter Bedside Commode # Voids 1 ABP, PAP, CO, CI - Last Documented Arterial Blood Pressure 121/47 - Labs CBC & Chem 7: 11/22/20 08:06 11/22/20 08:06 Labs: Abnormal Lab Results - Last 24 Hours (Table) 11/21/20 11/21/20 11/21/20 Range/Units 14:07 17:07 20:46 RBC (3.80-5.40) m/uL Hgb (11.4-16.0) gm/dL Hct (34.0-46.0) % RDW (11.5-15.5) % Lymphocytes # (1.0-4.8) k/uL Sodium (137-145) mmol/L Chloride (98-107) mmol/L Carbon Dioxide (22-30) mmol/L BUN (7-17) mg/dL Glucose (74-99) mg/dL POC Glucose (mg/dL) 202 H 221 H (75-99) mg/dL Troponin I 2.200 H* (0.000-0.034) ng/mL 11/22/20 11/22/20 11/22/20 Range/Units 06:10 08:06 08:06 RBC 3.71 L (3.80-5.40) m/uL Hgb 9.8 L (11.4-16.0) gm/dL Hct 31.4 L (34.0-46.0) % RDW 18.1 H (11.5-15.5) % Lymphocytes # 0.6 L (1.0-4.8) k/uL Sodium 135 L (137-145) mmol/L Chloride 90 L (98-107) mmol/L Carbon Dioxide 40 H (22-30) mmol/L BUN 19 H (7-17) mg/dL Glucose 167 H (74-99) mg/dL POC Glucose (mg/dL) 158 H (75-99) mg/dL Troponin I (0.000-0.034) ng/mL 11/22/20 Range/Units 11:32 RBC (3.80-5.40) m/uL Hgb (11.4-16.0) gm/dL Hct (34.0-46.0) % RDW (11.5-15.5) % Lymphocytes # (1.0-4.8) k/uL Sodium (137-145) mmol/L Chloride (98-107) mmol/L Carbon Dioxide (22-30) mmol/L BUN (7-17) mg/dL Glucose (74-99) mg/dL POC Glucose (mg/dL) 167 H (75-99) mg/dL Troponin I (0.000-0.034) ng/mL Microbiology - Last 24 Hours (Table) 11/20/20 21:30 Urine Culture - Preliminary Urine,Catheterized
--- NOTE | 2020-11-22 14:32 | P.PN ---
Subjective Progress Note Date: 11/22/20 Principal diagnosis: healthcare associated pneumonia acute UTI/urinary retention Metabolic encephalopathy New onset acute systolic CHF 85 years old female with past medical history of diabetes mellitus, hyperlipidemia. She does not follow up with PCP who presents because of wea kness and dyspnea, she fell from bed yesterday morning. She is a patient of Dr. Isha chavez Patient says that she slipped off her bed when trying to get up without losing consciousness or dizziness, she could not lift herself and she has to wait for her sister to call EMS. She complains from exertional dyspnea but She denies chest pain or coughing. Patient noticed to have some dyspnea while talking No diarrhea or abdominal pain or vomiting. She does not complain from urinary symptoms like no dysuria or change in frequency. She denies smoking, alcohol or illicit tracts Objective - Vital Signs Vital signs: Vital Signs Temp 98.0 F 11/22/20 08:07 Pulse 80 11/22/20 08:07 Resp 17 11/22/20 08:07 BP 97/58 11/22/20 08:07 Pulse Ox 98 11/22/20 08:07 Intake & Output 11/21/20 11/22/20 11/22/20 18:59 06:59 18:59 Intake Total 125 130 250 Output Total 1200 500 Balance -1075 -370 250 Weight 105.7 kg Intake: IV 30 Invasive Line 10 30 Oral 125 100 250 Output: Urine 1200 500 Uretheral (Celestin) 500 Other: Voiding Method Indwelling Catheter Indwelling Catheter Bedside Commode # Voids 1 ABP, PAP, CO, CI - Last Documented Arterial Blood Pressure 121/47 - Exam -GENERAL: The patient is alert but drowsy, easily arousable, not in any acute distress. Obese HEENT: Pupils are round and equally reacting to light. EOMI. No scleral icterus. No conjunctival pallor. Normocephalic, atraumatic. No pharyngeal erythema. No thyromegaly. CARDIOVASCULAR: S1 and S2 present. No murmurs, rubs, or gallops. -PULMONARY: Chest is clear to auscultation, no wheezing. Mild bilateral basal crepitation ABDOMEN: Soft, nontender, nondistended, normoactive bowel sounds. No palpable organomegaly. MUSCULOSKELETAL: No joint swelling or deformity. -EXTREMITIES: No cyanosis, clubbing,. Mild bilateral pitting leg edema NEUROLOGICAL: Gross neurological examination did not reveal any focal deficits. SKIN: No rashes. no petechiae. - Labs CBC & Chem 7: 11/22/20 08:06 11/22/20 08:06 Labs: Abnormal Lab Results - Last 24 Hours (Table) 11/21/20 11/21/20 11/21/20 Range/Units 09:41 09:41 09:41 RBC 3.56 L (3.80-5.40) m/uL Hgb 9.3 L (11.4-16.0) gm/dL Hct 29.7 L (34.0-46.0) % RDW 17.8 H (11.5-15.5) % Lymphocytes # 0.5 L (1.0-4.8) k/uL Sodium 133 L (137-145) mmol/L Chloride 90 L (98-107) mmol/L Carbon Dioxide 38 H (22-30) mmol/L BUN 19 H (7-17) mg/dL Glucose 151 H (74-99) mg/dL POC Glucose (mg/dL) (75-99) mg/dL Magnesium 1.5 L (1.6-2.3) mg/dL Troponin I 2.090 H* (0.000-0.034) ng/mL 11/21/20 11/21/20 11/21/20 Range/Units 11:33 14:07 17:07 RBC (3.80-5.40) m/uL Hgb (11.4-16.0) gm/dL Hct (34.0-46.0) % RDW (11.5-15.5) % Lymphocytes # (1.0-4.8) k/uL Sodium (137-145) mmol/L Chloride (98-107) mmol/L Carbon Dioxide (22-30) mmol/L BUN (7-17) mg/dL Glucose (74-99) mg/dL POC Glucose (mg/dL) 227 H 202 H (75-99) mg/dL Magnesium (1.6-2.3) mg/dL Troponin I 2.200 H* (0.000-0.034) ng/mL 11/21/20 11/22/20 11/22/20 Range/Units 20:46 06:10 08:06 RBC (3.80-5.40) m/uL Hgb (11.4-16.0) gm/dL Hct (34.0-46.0) % RDW (11.5-15.5) % Lymphocytes # (1.0-4.8) k/uL Sodium 135 L (137-145) mmol/L Chloride 90 L (98-107) mmol/L Carbon Dioxide 40 H (22-30) mmol/L BUN 19 H (7-17) mg/dL Glucose 167 H (74-99) mg/dL POC Glucose (mg/dL) 221 H 158 H (75-99) mg/dL Magnesium (1.6-2.3) mg/dL Troponin I (0.000-0.034) ng/mL 11/22/20 Range/Units 08:06 RBC 3.71 L (3.80-5.40) m/uL Hgb 9.8 L (11.4-16.0) gm/dL Hct 31.4 L (34.0-46.0) % RDW 18.1 H (11.5-15.5) % Lymphocytes # 0.6 L (1.0-4.8) k/uL Sodium (137-145) mmol/L Chloride (98-107) mmol/L Carbon Dioxide (22-30) mmol/L BUN (7-17) mg/dL Glucose (74-99) mg/dL POC Glucose (mg/dL) (75-99) mg/dL Magnesium (1.6-2.3) mg/dL Troponin I (0.000-0.034) ng/mL Microbiology - Last 24 Hours (Table) 11/20/20 21:30 Urine Culture - Preliminary Urine,Catheterized Assessment and Plan Assessment: Left lower lobe hospital-acquired pneumonia Acute urinary tract infection with urinary retention. Status post Celestin catheter Confusion, secondary to metabolic encephalopathy New onset acute systolic CHF Elevated troponin, non STEMI. Status post cardiac cath and stent placement to the LAD Acute hypoxic respiratory failure secondary to above Mechanical fall without loss of consciousness Diabetes mellitus, type II. With hyperglycemia Hyperlipidemia Morbid obesity with BMI 53 Plan: This is a pleasant 85 years old female who presents with acute CHF with ejection fraction less than 20%. Status post stent placement to the LAD. Also with pneumonia/UTI. Continue with diuretics. Continuous cardiology consult recommendation. Continue with aspirin. And brillinta. Continue with Zosyn. Continue with Celestin catheter. Follow up urine culture. Head of bed or the 30 Labs and medication were reviewed.. Continue same treatment. Continue with symptomatic treatment. Resume home medication. Monitor lytes and vitals. DVT and GI prophylaxis. Further recommendations as per clinical course of the patient DVT prophylaxis: Subcutaneous heparin GI Prophylaxis: Pepcid PT/OT: ECF open discharge Prognosis is guarded
[2020-11-22 17:00] LABS: Glucose,Whole Blood 155 mg/dL (75-99)
[2020-11-22 20:00] LABS: Glucose,Whole Blood 206 mg/dL (75-99)
[2020-11-22] MEDS: ATORVASTATIN 20 MG TAB PO SCH (20:40)
[2020-11-23] MEDS: PIPERACILLIN-TAZOBACTAM 3.375 GM in SODIUM CHLORIDE 0.9% 100 ML IVPB SCH ×3 (06:56→22:45)
[2020-11-23] MEDS: INSULIN DETEMIR (LEVEMIR) 100 UNIT/ML SYR SQ SCH (08:02)
[2020-11-23] MEDS: INSULIN ASPART (NovoLOG) 100 UNIT/ML VIAL SQ SCH ×7 (08:03→19:52)
[2020-11-23] MEDS: FAMOTIDINE 20 MG TAB PO SCH (09:49)
[2020-11-23] MEDS: SPIRONOLACTONE 25 MG TAB PO SCH (09:49)
[2020-11-23] MEDS: ASPIRIN 81 MG PO SCH (09:49)
[2020-11-23] MEDS: FUROSEMIDE 40 MG TAB PO SCH ×2 (09:49→17:51)
[2020-11-23] MEDS: TICAGRELOR 90 MG TAB PO SCH ×2 (09:49→19:52)
[2020-11-23] MEDS: ENOXAPARIN 40 MG/0.4 ML SYRINGE SQ SCH (09:49)
[2020-11-23] MEDS: METOPROLOL TARTRATE 25 MG TAB PO SCH ×2 (09:49→19:52)
[2020-11-23 10:41] LABS: Anisocytosis Slight; Basophils % (A) 1 %; Eosinophils # (A) 0.2 k/uL (0-0.7); Eosinophils % (A) 4 %; HCT 31.1 % (34.0-46.0); HGB 9.4 gm/dL (11.4-16.0); Hypochromasia Marked; Lymphocytes # (A) 0.6 k/uL (1.0-4.8); Lymphocytes % (A) 13 %; MCH 25.9 pg (25.0-35.0); MCHC 30.3 g/dL (31.0-37.0); MCV 85.3 fL (80.0-100.0); Mean Platelet Volume 8.1; Monocytes # (A) 0.4 k/uL (0-1.0); Monocytes % (A) 9 %; Neutrophils # (A) 2.9 k/uL (1.3-7.7); Neutrophils % (A) 70 %; Platelet Count 372 k/uL (150-450); RBC 3.65 m/uL (3.80-5.40); RDW 18.2 % (11.5-15.5); WBC 4.1 k/uL (3.8-10.6)
[2020-11-23 11:28] LABS: Glucose,Whole Blood 157 mg/dL (75-99)
--- NOTE | 2020-11-23 12:45 | P.PN ---
Subjective Progress Note Date: 11/23/20 HISTORY OF PRESENT ILLNESS: 11/13/2020 This is a 85-year-old female with a past medical history significant for diabetes mellitus, hyperlipidemia, and former nicotine dependence. 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 We have been asked to see the patient in consultation for pulmonary edema. Patient examined at the bedside in the emergency room. Patient is currently alert and oriented 1. Patient is unable to give much history. Patient thinks that she is at home at the time of examination. When patient was reoriented and told why she was in the hospital she was unable to tell me why she came to the hospital or who brought her here. Patient currently denies chest pain or pressure. She denies shortness of breath. She denies dizziness or lightheadedness. Patient was found to be in pulmonary edema and was started on IV Lasix. Preliminary echocardiogram complet ed in the emergency room reveals ejection fraction 20-25% and moderate aortic stenosis. EKG reveals sinus mechanism with nonspecific changes. First degree AV block. Left axis deviation. Chest xray cardiomegaly with pulmonary venous congestion and scattered infiltrates. Findings may reflect early congestive heart failure although infiltrates and other etiologies are not excluded. Laboratory data: WBC 3.9. Hemoglobin 10.6. Platelet count 337. Sodium 137. Potassium 4.1. BUN 15. Creatinine 0.66. BNP 4420. Troponin 0.063. 0.061. Current home cardiac medications include simvastatin 40 mg daily 11/14/2020 Patient examined this morning at the bedside. Patient is less confused today. Patient denies chest pain or pressure. She denies shortness of breath. Echocardiogram completed revealed ejection fraction 20-25%, global hypokinesis with only inferior lateral wall moving, apex is akinetic, moderate aortic stenosis, mild mitral regurgitation, mild tricuspid regurgitation, and moderate pulmonary hypertension 11/15/2020 Patient examined this morning at the bedside. Patient denies chest pain or pressure. Denies shortness of breath. Remains on lasix 40mg PO Q8 hours. BUN 21. Creatinine 0.92. Chest x-ray yesterday reveals residual volume overload. 11/16/2020 Patient examined this morning at the bedside. Patient denies chest pain or pressure. She denies shortness of breath at rest. She states she has not been out of bed today. She also states she did not get out of bed yesterday. She remains on oral Lasix 40 mg twice a day. blood pressure 106/61. Heart rate in the 80s. potassium 3.9. Magnesium 2.0. BUN 26. Creatinine 0.73. 11/17/2020 Patient examined this morning the bedside. Patient denies chest pain or pressure. She denies shortness of breath. Patient has not been getting out of bed and ambulating a lot. Her vital signs are stable. 11/19/2020 Patient examined this morning at the bedside. She is in the ICU. She underwent cardiac cath yesterday with Dr. Montes revealing critical disease involving very high risk for thrombotic lesion involving the ostial left anterior descending artery, right from the takeoff from the left main. Mild disease involving the left circumflex coronary artery. Nondominant right coronary artery. Successful stenting of the ostial and proximal LAD with adjunctive use of impella. Patient was confused overnight. She required use of restraints overnight. She was also given Ambien. Patient remains confused this morning. She is somewhat lethargic. She was receiving IV fluids overnight which has been discontinued this morning. 11/20/2020 Patient has been transferred out of the ICU to . Patient was confused overnight and pulled over her IV. She denies chest pain or pressure. She denies shortness of breath. blood pressure 141/65. Heart rate in the 60s. She is on 4 L nasal cannula with oxygen saturations greater than 92%. Potassium 3.2. 11/21/2020 patient examined this morning the bedside. Patient is more awake and communicative today. Prior to my examination patient apparently had some pleuritic chest pain. EKG was obtained by nursing which did not show any acute ischemic changes. At the time of my examination, the patient denies any chest pain or pressure. She denies shortness of breath. blood pressure 100/54. Heart rate in the 70s. 11/22/2020 Patient examined this morning at the bedside. Patient is awake and alert. Patient's confusion has resolved. She denies any chest pain or pressure. She denies shortness of breath. She is on room air with oxygen saturations greater than 92%. Blood pressure 97/58. Heart rate in the 70s. She is afebrile. She's maintaining sinus mechanism on telemetry. 11/23/2020 Patient examined this morning at the bedside. Patient is awake and alert doing a word search. She denies chest pain or pressure. She denies shortness of breath. Telemetry reveals sinus mechanism. She is on 2 L nasal cannula with oxygen saturations greater than 92%. Blood pressure 122/58. She is afebrile. PHYSICAL EXAM: VITAL SIGNS: Reviewed. GENERAL: Well-developed in no acute distress. HEENT: Head is normocephalic. Pupils are equal, round. Sclerae anicteric. Mucous membranes of the mouth are moist. Neck supple. No JVD or thyromegaly LUNGS: Respirations even and unlabored. Lungs diminished bilaterally. HEART: Regular rate and rhythm. S1 and S2 heard. Soft systolic murmur noted. EXTREMITIES: Normal range of motion. No clubbing or cyanosis. Peripheral pulses intact. No lower extremity edema ASSESSMENT: Left lower lobe hospital acquired pneumonia Acute systolic heart failure, EF 20-25%, BNP 4420 Ischemic cardiomyopathy, status post cardiac catheterization with PCI to ostial and proximal LAD Moderate aortic stenosis Diabetes mellitus Hypertension Former nicotine dependence Morbid obesity, BMI 52.9 PLAN: Continue current cardiac medications Patient is stable from a cardiac standpoint She is to follow up outpatient with Dr. Álvarez Nurse practitioner note has been reviewed by physician. Signing provider agrees with the documented findings, assessment, and plan of care. Objective - Vital Signs Vital signs: Vital Signs Temp 98.6 F 11/23/20 08:00 Pulse 70 11/23/20 08:00 Resp 18 11/23/20 08:00 BP 122/58 11/23/20 08:00 Pulse Ox 98 11/23/20 08:00 Intake & Output 11/22/20 11/23/20 11/23/20 18:59 06:59 18:59 Intake Total 500 215 Output Total 500 750 Balance 0 -750 215 Weight 112 kg Intake: Oral 500 215 Output: Urine 500 750 Other: Voiding Method Bedside Commode External Catheter Incontinent External Catheter # Bowel Movements 1 ABP, PAP, CO, CI - Last Documented Arterial Blood Pressure 121/47 - Labs CBC & Chem 7: 11/23/20 09:00 11/22/20 08:06 Labs: Abnormal Lab Results - Last 24 Hours (Table) 11/22/20 11/22/20 11/23/20 Range/Units 16:42 19:59 09:00 RBC 3.65 L (3.80-5.40) m/uL Hgb 9.4 L (11.4-16.0) gm/dL Hct 31.1 L (34.0-46.0) % MCHC 30.3 L (31.0-37.0) g/dL RDW 18.2 H (11.5-15.5) % Lymphocytes # 0.6 L (1.0-4.8) k/uL POC Glucose (mg/dL) 155 H 206 H (75-99) mg/dL 11/23/20 Range/Units 11:27 RBC (3.80-5.40) m/uL Hgb (11.4-16.0) gm/dL Hct (34.0-46.0) % MCHC (31.0-37.0) g/dL RDW (11.5-15.5) % Lymphocytes # (1.0-4.8) k/uL POC Glucose (mg/dL) 157 H (75-99) mg/dL Microbiology - Last 24 Hours (Table) 11/20/20 21:30 Urine Culture - Final Urine,Catheterized Escherichia coli
--- NOTE | 2020-11-23 15:56 | P.PN ---
Subjective Progress Note Date: 11/23/20 Principal diagnosis: healthcare associated pneumonia acute UTI/urinary retention Metabolic encephalopathy New onset acute systolic CHF 85 years old female with past medical history of diabetes mellitus, hyperlipidemia. She does not follow up with PCP who presents because of wea kness and dyspnea, she fell from bed yesterday morning. She is a patient of Dr. Isha chavez Patient says that she slipped off her bed when trying to get up without losing consciousness or dizziness, she could not lift herself and she has to wait for her sister to call EMS. She complains from exertional dyspnea but She denies chest pain or coughing. Patient noticed to have some dyspnea while talking No diarrhea or abdominal pain or vomiting. She does not complain from urinary symptoms like no dysuria or change in frequency. She denies smoking, alcohol or illicit tracts 11/23/2020 Patient is seen and evaluated with family members at bedside; continues to complain of inability to ambulate of the patient and family do report that the patient hasn't been walking for past few years; patient reports pain with ambulation in both knee Continues to be treated for left lower lobe healthcare associated pneumonia with IV Zosyn; cardiology is following and recommending to continue all current medications; patient has an EF of 20-25%; Remains euvolemic; We will order x- ray of bilateral knees and make further recommendations pending results Patient has been evaluated by PT/OT and has recommended skilled rehab versus ECF; case management on board with possible plan for transfer on Wednesday Objective - Vital Signs Vital signs: Vital Signs Temp 98.6 F 11/23/20 08:00 Pulse 68 11/23/20 14:00 Resp 18 11/23/20 14:00 BP 103/52 11/23/20 12:00 Pulse Ox 100 11/23/20 12:00 Intake & Output 11/22/20 11/23/20 11/23/20 18:59 06:59 18:59 Intake Total 500 290 Output Total 500 750 800 Balance 0 -750 -510 Weight 112 kg Intake: Oral 500 290 Output: Urine 500 750 800 Other: Voiding Method Bedside Commode External Catheter Incontinent External Catheter # Bowel Movements 1 ABP, PAP, CO, CI - Last Documented Arterial Blood Pressure 121/47 - Exam -GENERAL: The patient is alert but drowsy, easily arousable, not in any acute distress. Obese HEENT: Pupils are round and equally reacting to light. EOMI. No scleral icterus. No conjunctival pallor. Normocephalic, atraumatic. No pharyngeal erythema. No thyromegaly. CARDIOVASCULAR: S1 and S2 present. No murmurs, rubs, or gallops. -PULMONARY: Chest is clear to auscultation, no wheezing. Mild bilateral basal crepitation ABDOMEN: Soft, nontender, nondistended, normoactive bowel sounds. No palpable organomegaly. MUSCULOSKELETAL: No joint swelling or deformity. -EXTREMITIES: No cyanosis, clubbing,. Mild bilateral pitting leg edema NEUROLOGICAL: Gross neurological examination did not reveal any focal deficits. SKIN: No rashes. no petechiae. - Labs CBC & Chem 7: 11/23/20 09:00 11/22/20 08:06 Labs: Abnormal Lab Results - Last 24 Hours (Table) 11/22/20 11/22/20 11/23/20 Range/Units 16:42 19:59 09:00 RBC 3.65 L (3.80-5.40) m/uL Hgb 9.4 L (11.4-16.0) gm/dL Hct 31.1 L (34.0-46.0) % MCHC 30.3 L (31.0-37.0) g/dL RDW 18.2 H (11.5-15.5) % Lymphocytes # 0.6 L (1.0-4.8) k/uL POC Glucose (mg/dL) 155 H 206 H (75-99) mg/dL 11/23/20 Range/Units 11:27 RBC (3.80-5.40) m/uL Hgb (11.4-16.0) gm/dL Hct (34.0-46.0) % MCHC (31.0-37.0) g/dL RDW (11.5-15.5) % Lymphocytes # (1.0-4.8) k/uL POC Glucose (mg/dL) 157 H (75-99) mg/dL Microbiology - Last 24 Hours (Table) 11/20/20 21:30 Urine Culture - Final Urine,Catheterized Escherichia coli Assessment and Plan Assessment: Left lower lobe hospital-acquired pneumonia Acute urinary tract infection with urinary retention. Status post Celestin catheter Confusion, secondary to metabolic encephalopathy New onset acute systolic CHF Elevated troponin, non STEMI. Status post cardiac cath and stent placement to the LAD Acute hypoxic respiratory failure secondary to above Mechanical fall without loss of consciousness Diabetes mellitus, type II. With hyperglycemia Hyperlipidemia Morbid obesity with BMI 53 Plan: This is a pleasant 85 years old female who presents with acute CHF with ejection fraction less than 20%. Status post stent placement to the LAD. Also with pneumonia/UTI. Continue with diuretics. Continuous cardiology consult recom mendation. Continue with aspirin. And brillinta. Continue with Zosyn. Continue with Celestin catheter. Follow up urine culture. Head of bed or the 30 Labs and medication were reviewed.. Continue same treatment. Continue with symptomatic treatment. Resume home medication. Monitor lytes and vitals. DVT and GI prophylaxis. Further recommendations as per clinical course of the patient DVT prophylaxis: Subcutaneous heparin GI Prophylaxis: Pepcid PT/OT: ECF open discharge Prognosis is guarded
[2020-11-23 17:00] LABS: Glucose,Whole Blood 184 mg/dL (75-99)
--- NOTE | 2020-11-23 17:20 | XR ---
EXAMINATION TYPE: XR knee complete bilateral DATE OF EXAM: 11/23/2020 COMPARISON: NONE HISTORY: Knee pain TECHNIQUE: 3 views each knee FINDINGS: There is moderate narrowing of the lateral joint space of the left knee. There is more mild narrowing lateral joint space right knee. I see no fracture nor dislocation. There is moderate spurr ing of the left and right patellofemoral joint. There is no significant joint effusion. IMPRESSION: Bilateral hypertrophic osteoarthritis that is slightly worse in the lateral joint space o f the left knee. No fracture seen.
[2020-11-23 19:35] LABS: Glucose,Whole Blood 189 mg/dL (75-99)
[2020-11-23] MEDS: ATORVASTATIN 20 MG TAB PO SCH (19:52)
[2020-11-24] MEDS: PIPERACILLIN-TAZOBACTAM 3.375 GM in SODIUM CHLORIDE 0.9% 100 ML IVPB SCH (06:33)
[2020-11-24] MEDS: INSULIN DETEMIR (LEVEMIR) 100 UNIT/ML SYR SQ SCH (08:16)
[2020-11-24] MEDS: INSULIN ASPART (NovoLOG) 100 UNIT/ML VIAL SQ SCH ×7 (08:16→21:04)
[2020-11-24] MEDS: TICAGRELOR 90 MG TAB PO SCH ×2 (10:22→21:04)
[2020-11-24] MEDS: SPIRONOLACTONE 25 MG TAB PO SCH (10:23)
[2020-11-24] MEDS: FAMOTIDINE 20 MG TAB PO SCH (10:23)
[2020-11-24] MEDS: ASPIRIN 81 MG PO SCH (10:23)
[2020-11-24] MEDS: ENOXAPARIN 40 MG/0.4 ML SYRINGE SQ SCH (10:23)
[2020-11-24] MEDS: FUROSEMIDE 40 MG TAB PO SCH ×2 (10:23→17:45)
[2020-11-24] MEDS: METOPROLOL TARTRATE 25 MG TAB PO SCH ×2 (10:23→21:04)
--- NOTE | 2020-11-24 10:37 | P.PN ---
Subjective Progress Note Date: 11/24/20 HISTORY OF PRESENT ILLNESS: 11/13/2020 This is a 85-year-old female with a past medical history significant for diabetes mellitus, hyperlipidemia, and former nicotine dependence. Patient does not follow with a construction secretary. We have been asked to see the patient in consultation for pulmonary edema. Patient examined at the bedside in the emergency room. Patient is currently alert and oriented 1. Patient is unable to give much history. Patient thinks that she is at home at the time of examination. When patient was reoriented and told why she was in the hospital she was unable to tell me why she came to the hospital or who brought her here. Patient currently denies chest pain or pressure. She denies shortness of breath. She denies dizziness or lightheadedness. Patient was found to be in pulmonary edema and was started on IV Lasix. Preliminary echocardiogram complet ed in the emergency room reveals ejection fraction 20-25% and moderate aortic stenosis. EKG reveals sinus mechanism with nonspecific changes. First degree AV block. Left axis deviation. Chest xray cardiomegaly with pulmonary venous congestion and scattered infiltrates. Findings may reflect early congestive heart failure although infiltrates and other etiologies are not excluded. Laboratory data: WBC 3.9. Hemoglobin 10.6. Platelet count 337. Sodium 137. Potassium 4.1. BUN 15. Creatinine 0.66. BNP 4420. Troponin 0.063. 0.061. Current home cardiac medications include simvastatin 40 mg daily 11/14/2020 Patient examined this morning at the bedside. Patient is less confused today. Patient denies chest pain or pressure. She denies shortness of breath. Echocardiogram completed revealed ejection fraction 20-25%, global hypokinesis with only inferior lateral wall moving, apex is akinetic, moderate aortic stenosis, mild mitral regurgitation, mild tricuspid regurgitation, and moderate pulmonary hypertension 11/15/2020 Patient examined this morning at the bedside. Patient denies chest pain or pressure. Denies shortness of breath. Remains on lasix 40mg PO Q8 hours. BUN 21. Creatinine 0.92. Chest x-ray yesterday reveals residual volume overload. 11/16/2020 Patient examined this morning at the bedside. Patient denies chest pain or pressure. She denies shortness of breath at rest. She states she has not been out of bed today. She also states she did not get out of bed yesterday. She remains on oral Lasix 40 mg twice a day. blood pressure 106/61. Heart rate in the 80s. potassium 3.9. Magnesium 2.0. BUN 26. Creatinine 0.73. 11/17/2020 Patient examined this morning the bedside. Patient denies chest pain or pressure. She denies shortness of breath. Patient has not been getting out of bed and ambulating a lot. Her vital signs are stable. 11/19/2020 Patient examined this morning at the bedside. She is in the ICU. She underwent cardiac cath yesterday with Dr. Montes revealing critical disease involving very high risk for thrombotic lesion involving the ostial left anterior descending artery, right from the takeoff from the left main. Mild disease involving the left circumflex coronary artery. Nondominant right coronary artery. Successful stenting of the ostial and proximal LAD with adjunctive use of impella. Patient was confused overnight. She required use of restraints overnight. She was also given Ambien. Patient remains confused this morning. She is somewhat lethargic. She was receiving IV fluids overnight which has been discontinued this morning. 11/20/2020 Patient has been transferred out of the ICU to . Patient was confused overnight and pulled over her IV. She denies chest pain or pressure. She denies shortness of breath. blood pressure 141/65. Heart rate in the 60s. She is on 4 L nasal cannula with oxygen saturations greater than 92%. Potassium 3.2. 11/21/2020 patient examined this morning the bedside. Patient is more awake and communicative today. Prior to my examination patient apparently had some pleuritic chest pain. EKG was obtained by nursing which did not show any acute ischemic changes. At the time of my examination, the patient denies any chest pain or pressure. She denies shortness of breath. blood pressure 100/54. Heart rate in the 70s. 11/22/2020 Patient examined this morning at the bedside. Patient is awake and alert. Patient's confusion has resolved. She denies any chest pain or pressure. She denies shortness of breath. She is on room air with oxygen saturations greater than 92%. Blood pressure 97/58. Heart rate in the 70s. She is afebrile. She's maintaining sinus mechanism on telemetry. 11/23/2020 Patient examined this morning at the bedside. Patient is awake and alert doing a word search. She denies chest pain or pressure. She denies shortness of breath. Telemetry reveals sinus mechanism. She is on 2 L nasal cannula with oxygen saturations greater than 92%. Blood pressure 122/58. She is afebrile. 11/24/2020 Patient examined this morning at the bedside. Patient denies chest pain or pressure. She denies shortness of breath. She is on room air with oxygen saturations greater than 92%. Blood pressure 116/56. She is afebrile. She is maintaining sinus mechanism on telemetry with a heart rate in the 60s. PHYSICAL EXAM: VITAL SIGNS: Reviewed. GENERAL: Well-developed in no acute distress. HEENT: Head is normocephalic. Pupils are equal, round. Sclerae anicteric. Mucous membranes of the mouth are moist. Neck supple. No JVD or thyromegaly LUNGS: Respirations even and unlabored. Lungs diminished bilaterally. HEART: Regular rate and rhythm. S1 and S2 heard. Soft systolic murmur noted. EXTREMITIES: Normal range of motion. No clubbing or cyanosis. Peripheral pulses intact. No lower extremity edema ASSESSMENT: Left lower lobe hospital acquired pneumonia Acute systolic heart failure, EF 20-25%, BNP 4420 Ischemic cardiomyopathy, status post cardiac catheterization with PCI to ostial and proximal LAD Moderate aortic stenosis Diabetes mellitus Hypertension Former nicotine dependence Morbid obesity, BMI 52.9 PLAN: Continue current cardiac medications Patient is stable from a cardiac standpoint She is to follow up outpatient with Dr. Álvarez Nurse practitioner note has been reviewed by physician. Signing provider agrees with the documented findings, assessment, and plan of care. Objective - Vital Signs Vital signs: Vital Signs Temp 98.4 F 11/24/20 10:21 Pulse 66 11/24/20 10:21 Resp 16 11/24/20 10:21 BP 116/56 11/24/20 10:21 Pulse Ox 92 L 11/24/20 10:21 Intake & Output 11/23/20 11/24/20 11/24/20 18:59 06:59 18:59 Intake Total 290 0 Output Total 800 300 Balance -510 -300 0 Weight 116 kg Intake: Oral 290 0 Output: Urine 800 300 Other: Voiding Method Incontinent Incontinent External Catheter External Catheter # Bowel Movements 1 ABP, PAP, CO, CI - Last Documented Arterial Blood Pressure 121/47 - Labs CBC & Chem 7: 11/23/20 09:00 11/22/20 08:06 Labs: Abnormal Lab Results - Last 24 Hours (Table) 11/23/20 11/23/20 11/23/20 Range/Units 09:00 11:27 16:58 RBC 3.65 L (3.80-5.40) m/uL Hgb 9.4 L (11.4-16.0) gm/dL Hct 31.1 L (34.0-46.0) % MCHC 30.3 L (31.0-37.0) g/dL RDW 18.2 H (11.5-15.5) % Lymphocytes # 0.6 L (1.0-4.8) k/uL POC Glucose (mg/dL) 157 H 184 H (75-99) mg/dL 11/23/20 Range/Units 19:33 RBC (3.80-5.40) m/uL Hgb (11.4-16.0) gm/dL Hct (34.0-46.0) % MCHC (31.0-37.0) g/dL RDW (11.5-15.5) % Lymphocytes # (1.0-4.8) k/uL POC Glucose (mg/dL) 189 H (75-99) mg/dL Microbiology - Last 24 Hours (Table) 11/20/20 21:30 Urine Culture - Final Urine,Catheterized Escherichia coli
[2020-11-24 11:32] LABS: Glucose,Whole Blood 146 mg/dL (75-99)
--- NOTE | 2020-11-24 14:45 | P.PN ---
Subjective Progress Note Date: 11/24/20 Principal diagnosis: healthcare associated pneumonia acute UTI/urinary retention Metabolic encephalopathy New onset acute systolic CHF 85 years old female with past medical history of diabetes mellitus, hyperlipidemia. She does not follow up with PCP who presents because of wea kness and dyspnea, she fell from bed yesterday morning. She is a patient of Dr. Isha chavez Patient says that she slipped off her bed when trying to get up without losing consciousness or dizziness, she could not lift herself and she has to wait for her sister to call EMS. She complains from exertional dyspnea but She denies chest pain or coughing. Patient noticed to have some dyspnea while talking No diarrhea or abdominal pain or vomiting. She does not complain from urinary symptoms like no dysuria or change in frequency. She denies smoking, alcohol or illicit tracts 11/23/2020 Patient is seen and evaluated with family members at bedside; continues to complain of inability to ambulate of the patient and family do report that the patient hasn't been walking for past few years; patient reports pain with ambulation in both knee Continues to be treated for left lower lobe healthcare associated pneumonia with IV Zosyn; cardiology is following and recommending to continue all current medications; patient has an EF of 20-25%; Remains euvolemic; We will order x- ray of bilateral knees and make further recommendations pending results Patient has been evaluated by PT/OT and has recommended skilled rehab versus ECF; case management on board with possible plan for transfer on Wednesday11/24/2020 Patient is seen and evaluated resting comfortably in bed; denies any specific complaints Vital signs are reviewed and are stable; O2 saturation greater than 92% on 2 L Patient remains on IV Zosyn for healthcare associated pneumonia, day #5; we will continue with IV Zosyn for another 24 hours with possible switch to oral Augmentin if patient remains stable Cardiology on board for acute systolic CHF; echocardiogram reveals EF 20-25%; cardiology has cleared patient for discharge; patient to be transferred to SNF versus ECF when arrangements are made Objective - Vital Signs Vital signs: Vital Signs Temp 98.8 F 11/23/20 20:00 Pulse 76 11/24/20 03:11 Resp 18 11/24/20 03:11 BP 91/47 11/24/20 03:11 Pulse Ox 91 L 11/24/20 03:11 Intake & Output 11/23/20 11/24/20 11/24/20 18:59 06:59 18:59 Intake Total 290 Output Total 800 300 Balance -510 -300 Weight 116 kg Intake: Oral 290 Output: Urine 800 300 Other: Voiding Method Incontinent Incontinent External Catheter External Catheter # Bowel Movements 1 ABP, PAP, CO, CI - Last Documented Arterial Blood Pressure 121/47 - Exam -GENERAL: The patient is alert but drowsy, easily arousable, not in any acute distress. Obese HEENT: Pupils are round and equally reacting to light. EOMI. No scleral icterus. No conjunctival pallor. Normocephalic, atraumatic. No pharyngeal erythema. No thyromegaly. CARDIOVASCULAR: S1 and S2 present. No murmurs, rubs, or gallops. -PULMONARY: Chest is clear to auscultation, no wheezing. Mild bilateral basal crepitation ABDOMEN: Soft, nontender, nondistended, normoactive bowel sounds. No palpable organomegaly. MUSCULOSKELETAL: No joint swelling or deformity. -EXTREMITIES: No cyanosis, clubbing,. Mild bilateral pitting leg edema NEUROLOGICAL: Gross neurological examination did not reveal any focal deficits. SKIN: No rashes. no petechiae. - Labs CBC & Chem 7: 11/23/20 09:00 11/22/20 08:06 Labs: Abnormal Lab Results - Last 24 Hours (Table) 11/23/20 11/23/20 11/23/20 Range/Units 09:00 11:27 16:58 RBC 3.65 L (3.80-5.40) m/uL Hgb 9.4 L (11.4-16.0) gm/dL Hct 31.1 L (34.0-46.0) % MCHC 30.3 L (31.0-37.0) g/dL RDW 18.2 H (11.5-15.5) % Lymphocytes # 0.6 L (1.0-4.8) k/uL POC Glucose (mg/dL) 157 H 184 H (75-99) mg/dL 11/23/20 Range/Units 19:33 RBC (3.80-5.40) m/uL Hgb (11.4-16.0) gm/dL Hct (34.0-46.0) % MCHC (31.0-37.0) g/dL RDW (11.5-15.5) % Lymphocytes # (1.0-4.8) k/uL POC Glucose (mg/dL) 189 H (75-99) mg/dL Microbiology - Last 24 Hours (Table) 11/20/20 21:30 Urine Culture - Final Urine,Catheterized Escherichia coli Assessment and Plan Assessment: Left lower lobe hospital-acquired pneumonia Acute urinary tract infection with urinary retention. Status post Celestin catheter Confusion, secondary to metabolic encephalopathy New onset acute systolic CHF Elevated troponin, non STEMI. Status post cardiac cath and stent placement to the LAD Acute hypoxic respiratory failure secondary to above Mechanical fall without loss of consciousness Diabetes mellitus, type II. With hyperglycemia Hyperlipidemia Morbid obesity with BMI 53 Plan: This is a pleasant 85 years old female who presents with acute CHF with ejection fraction less than 20%. Status post stent placement to the LAD. Also with pn eumonia/UTI. Continue with diuretics. Continuous cardiology consult recommendation. Continue with aspirin. And brillinta. Continue with Zosyn. Continue with Celestin catheter. Follow up urine culture. Head of bed or the 30 Labs and medication were reviewed.. Continue same treatment. Continue with symptomatic treatment. Resume home medication. Monitor lytes and vitals. DVT and GI prophylaxis. Further recommendations as per clinical course of the patient DVT prophylaxis: Subcutaneous heparin GI Prophylaxis: Pepcid PT/OT: ECF open discharge Prognosis is guarded
[2020-11-24 16:21] LABS: Glucose,Whole Blood 196 mg/dL (75-99)
[2020-11-24 20:02] LABS: Glucose,Whole Blood 217 mg/dL (75-99)
[2020-11-24] MEDS: ATORVASTATIN 20 MG TAB PO SCH (21:04)
[2020-11-24] MEDS: AMOXIC-POT CLAV 875-125MG 1 EACH TAB PO SCH (21:04)
[2020-11-24] MEDS: QUEtiapine 50 MG TAB PO PRN (23:12)
[2020-11-25 07:16] LABS: Glucose,Whole Blood 154 mg/dL (75-99)
[2020-11-25] MEDS: INSULIN DETEMIR (LEVEMIR) 100 UNIT/ML SYR SQ SCH (07:26)
[2020-11-25] MEDS: INSULIN ASPART (NovoLOG) 100 UNIT/ML VIAL SQ SCH ×4 (07:26→12:47)
[2020-11-25 08:53] LABS: Calcium 9.3 mg/dL (8.4-10.2); Potassium 3.3 mmol/L (3.5-5.1)
[2020-11-25] MEDS: METOPROLOL TARTRATE 25 MG TAB PO SCH (08:55)
[2020-11-25] MEDS: FUROSEMIDE 40 MG TAB PO SCH (08:55)
[2020-11-25] MEDS: AMOXIC-POT CLAV 875-125MG 1 EACH TAB PO SCH (08:55)
[2020-11-25] MEDS: FAMOTIDINE 20 MG TAB PO SCH (08:55)
[2020-11-25] MEDS: TICAGRELOR 90 MG TAB PO SCH (08:55)
[2020-11-25 08:56] LABS: Anisocytosis Slight; Basophils % (A) 1 %; Eosinophils # (A) 0.2 k/uL (0-0.7); Eosinophils % (A) 5 %; HCT 31.1 % (34.0-46.0); HGB 9.9 gm/dL (11.4-16.0); Hypochromasia Moderate; Lymphocytes # (A) 0.9 k/uL (1.0-4.8); Lymphocytes % (A) 22 %; MCH 27.2 pg (25.0-35.0); MCHC 31.8 g/dL (31.0-37.0); MCV 85.3 fL (80.0-100.0); Mean Platelet Volume 8.1; Monocytes # (A) 0.4 k/uL (0-1.0); Monocytes % (A) 10 %; Neutrophils # (A) 2.6 k/uL (1.3-7.7); Neutrophils % (A) 61 %; Platelet Count 409 k/uL (150-450); RBC 3.65 m/uL (3.80-5.40); RDW 18.8 % (11.5-15.5); WBC 4.2 k/uL (3.8-10.6)
[2020-11-25] MEDS: SPIRONOLACTONE 25 MG TAB PO SCH (08:56)
[2020-11-25] MEDS: ENOXAPARIN 40 MG/0.4 ML SYRINGE SQ SCH (08:56)
[2020-11-25] MEDS: ASPIRIN 81 MG PO SCH (08:56)
[2020-11-25 09:01] VITALS: RESP 16; TEMP 99
[2020-11-25 12:01] LABS: Glucose,Whole Blood 146 mg/dL (75-99)
[2020-11-25 12:50] VITALS: BP 113/55; PULSE 64
--- NOTE | 2020-11-25 15:42 | P.DS ---
Providers Date of admission: 11/13/20 11:08 Expected date of discharge: 11/25/20 Attending physician: Rm Luna Consults: 11/13/20 11:08 Consult Physician Routine Consulting Provider: Jennifer Arenas Consult Reason/Comments: Acute pulmonary edema Do you want consulting provider notified?: Yes 11/18/20 11:53 Consult Physician Routine Consulting Provider: Jennifer Arenas Consult Reason/Comments: Post Interventional patient Do you want consulting provider notified?: Already Contacted Primary care physician: Sandee Chavez [facility] Course: history of presenting complaint 85 years old female with past medical history of diabetes mellitus, hyperlipidemia. presents because of weakness and dyspnea, she fell from bed . She is a patient of Dr. Isha chavez Patient says that she slipped off her bed when trying to get up without losing consciousness or dizziness, she could not lift herself and she has to wait for her sister to call EMS. She complains from exertional dyspnea but She denies chest pain or coughing. Patient noticed to have some dyspnea while talking No diarrhea or abdominal pain or vomiting. She does not complain from urinary symptoms like no dysuria or change in frequency. She denies smoking, alcohol or illicit tracts Admitted diagnosis of left lower lobe pneumonia, acute UTI with urinary retention requiring a Celestin catheter, anabolic encephalopathy from pneumonia. Also found to have a new onset of systolic CHF and also acute non-ST elevation CT and underwent a cardiac catheterization with stent to the LAD. Today: Sitting up in a chair. Eating better. No chest pain. Did take to 3 steps. We will going to inpatient rehab. Discussed with the patient. Questions answered. Discussed with public health social worker. Discussion and discharge planning more than 35 minutes Consultation: Cardiology associates On examination: VITAL SIGNS: 99, 64, 16, 113/55, 98% on room air GENERAL APPEARANCE: BMI 46.5, sitting up in a chair, comfortable. HEENT: Normal external appearance of nose and ear. Oral cavity normal EYES: Pupils equal. Conjunctiva normal. NECK: JVD not raised. Mass not palpable. RESPIRATORY: Respiratory effort normal. Lungs decreased breath sounds CARDIOVASCULAR: First and second sounds normal. No edema. ABDOMEN: Soft. Liver and spleen not palpable. No tenderness. No mass palpable. PSYCHIATRY: Alert and oriented x3. Mood and affect normal. Investigations: WBC 4.2 hemoglobin 9.9 platelets 409 potassium 3.3 creatinine 1.08 Modified barium swallow: Normal Computed tomography scan of the brain: Normal with age related changes Procedures: Successful placement of an PERRLA. Stenting of the LAD with a drug- eluting stent. Selective coronary angiogram left and right, bilateral common femoral arteries angiogram. Assessment and plan: -Left lower lobe pneumonia. Treated with antibiotics -Acute congestive heart failure exacerbation EF 20-25%. Treated with diuretics. -Coronary artery disease with a drug-eluting stent to the LAD -Acute non-ST elevation myocardial infarction -Moderate aortic stenosis -Diabetes mellitus type 2 on oral hypoglycemic -Essential hypertension -Morbid obesity BMI 46.5 -Acute metabolic encephalopathy multifactorial. Improved -Acute medical debility from above. Patient requiring a walker. -Acute kidney injury suspect ATN, multifactorial with a creatinine going up from 0.66-1.08. -Normocytic anemia of unknown. To be worked up further as an outpatient [facility] [place] Labs: CBC, BMP-5 days Plan - Discharge Summary New Discharge Prescriptions: New Spironolactone [Aldactone] 25 mg PO DAILY tab Atorvastatin [Lipitor] 20 mg PO HS tab lisinopriL [Zestril] 2.5 mg PO DAILY tab Aspirin 81 mg PO DAILY chew Ticagrelor [Brilinta] 90 mg PO BID tab Furosemide [Lasix] 40 mg PO BID@0900,1600 tab Metoprolol Tartrate [Lopressor] 25 mg PO BID tab Nitroglycerin Sl Tabs [Nitrostat] 0.4 mg SUBLINGUAL Q5M PRN tab PRN Reason: Chest Pain Famotidine [Pepcid] 20 mg PO DAILY tab INSULIN ASPART (NovoLOG) [NovoLOG (formulary)] 0 unit SQ ACHS vial Continue Multivitamins, Thera [Multivitamin (formulary)] 1 tab PO DAILY Pioglitazone [Actos] 30 mg PO DAILY Changed Acetaminophen Tab [Tylenol] 500 mg PO AC-TID #0 Discontinued Simvastatin 40 mg PO HS Glimepiride [Amaryl] 4 mg PO BID Discharge Medication List Multivitamins, Thera [Multivitamin (formulary)] 1 tab PO DAILY 11/13/20 [History] Pioglitazone [Actos] 30 mg PO DAILY 11/13/20 [History] Acetaminophen Tab [Tylenol] 500 mg PO AC-TID #0 11/25/20 [Rx] Aspirin 81 mg PO DAILY chew 11/25/20 [Rx] Atorvastatin [Lipitor] 20 mg PO HS tab 11/25/20 [Rx] Famotidine [Pepcid] 20 mg PO DAILY tab 11/25/20 [Rx] Furosemide [Lasix] 40 mg PO BID@0900,1600 tab 11/25/20 [Rx] INSULIN ASPART (NovoLOG) [NovoLOG (formulary)] 0 unit SQ ACHS vial 11/25/20 [Rx] Metoprolol Tartrate [Lopressor] 25 mg PO BID tab 11/25/20 [Rx] Nitroglycerin Sl Tabs [Nitrostat] 0.4 mg SUBLINGUAL Q5M PRN tab 11/25/20 [Rx] Spironolactone [Aldactone] 25 mg PO DAILY tab 11/25/20 [Rx] Ticagrelor [Brilinta] 90 mg PO BID tab 11/25/20 [Rx] lisinopriL [Zestril] 2.5 mg PO DAILY tab 11/25/20 [Rx] Follow up Appointment(s)/Referral(s): West Álvarez MD [STAFF PHYSICIAN] - 2 Weeks Sandee Chavez MD [Primary Care Provider] - 1-2 days
[2020-11-26] MEDS ORDERED: ENOXAPARIN 30 MG/0.3 ML SYRINGE SQ SCH (09:00)
== END 2020-11-25 16:31 | DRG 215 ==
LOC: EC 08:56 → 3SCARD 11:08 → 2SICU 11-18 11:51 → 3SCARD 11-19 21:41
PROVIDERS: ADMIT Hospitalist; ATTEND Hospitalist
PROC: B41F1ZZ Fluoroscopy of Right Lower Extremity Arteries using Low Osmolar Contrast (ICD-10-PCS; principal; 2020-11-18 09:30)
PROC: 4A023N7 Measurement of Cardiac Sampling and Pressure, Left Heart, Percutaneous Approach (ICD-10-PCS; principal; 2020-11-18 09:30)
PROC: 5A0221D Assistance with Cardiac Output using Impeller Pump, Continuous (ICD-10-PCS; principal; 2020-11-18 09:30)
PROC: B41G1ZZ Fluoroscopy of Left Lower Extremity Arteries using Low Osmolar Contrast (ICD-10-PCS; principal; 2020-11-18 09:30)
PROC: 02HA3RJ Insertion of Short-term External Heart Assist System into Heart, Intraoperative, Percutaneous Approach (ICD-10-PCS; principal; 2020-11-18 09:30)
PROC: B2111ZZ Fluoroscopy of Multiple Coronary Arteries using Low Osmolar Contrast (ICD-10-PCS; principal; 2020-11-18 09:30)
PROC: 027034Z Dilation of Coronary Artery, One Artery with Drug-eluting Intraluminal Device, Percutaneous Approach (ICD-10-PCS; principal; 2020-11-18 09:30)
PROC: 05HF33Z Insertion of Infusion Device into Left Cephalic Vein, Percutaneous Approach (ICD-10-PCS; 2020-11-19 09:20)
PROC: 05HD33Z Insertion of Infusion Device into Right Cephalic Vein, Percutaneous Approach (ICD-10-PCS; 2020-11-20)
DX: I11.0 Hypertensive heart disease with heart failure (principal); I50.21 Acute systolic (congestive) heart failure; J96.01 Acute respiratory failure with hypoxia; N17.0 Acute kidney failure with tubular necrosis; I21.4 Non-ST elevation (NSTEMI) myocardial infarction; G93.41 Metabolic encephalopathy; J18.9 Pneumonia, unspecified organism; Z68.43 Body mass index [BMI] 50.0-59.9, adult; E87.1 Hypo-osmolality and hyponatremia; N39.0 Urinary tract infection, site not specified; E66.01 Morbid (severe) obesity due to excess calories; E11.65 Type 2 diabetes mellitus with hyperglycemia; Z20.822 Contact with and (suspected) exposure to COVID-19; I25.5 Ischemic cardiomyopathy; E83.42 Hypomagnesemia; I25.10 Atherosclerotic heart disease of native coronary artery without angina pectoris; I35.0 Nonrheumatic aortic (valve) stenosis; Y95 Nosocomial condition; B96.20 Unspecified Escherichia coli [E. coli] as the cause of diseases classified elsewhere; I44.0 Atrioventricular block, first degree; D64.9 Anemia, unspecified; R33.9 Retention of urine, unspecified; E78.5 Hyperlipidemia, unspecified; M19.91 Primary osteoarthritis, unspecified site; Z79.84 Long term (current) use of oral hypoglycemic drugs; Z79.899 Other long term (current) drug therapy; Z78.1 Physical restraint status; Z87.891 Personal history of nicotine dependence; Z71.3 Dietary counseling and surveillance; W06.XXXA Fall from bed, initial encounter; Z83.3 Family history of diabetes mellitus; Z82.49 Family history of ischemic heart disease and other diseases of the circulatory system
CPT/HCPCS: 36410; 36415; 70450; 71045; 71046; 74230; 76937; 80048; 80053; 80061; 81001; 83036; 83605; 83735; 83880; 84145; 84484; 85025; 85027; 85347; 85610; 85730; 87077; 87086; 87186; 87635; 93005; 93306; 93458; 96374; 99291

== ENCOUNTER 2020-12-15 23:55 | Inpatient (IN) | payer MEDICARE, OTHER ==
--- NOTE | 2020-12-16 00:01 | ED ---
Recheck HPI - General Stated Complaint: Abnormal Labs Time Seen by Provider: 12/16/20 00:00 Source: RN notes reviewed, old records reviewed Mode of arrival: EMS Limitations: altered mental status - History of Present Illness Initial Comments: This is an 85-year-old female accepted in transfer for decreased responsiveness unresponsiveness abnormal lab values, patient is elevated creatinine elevated BUN and altered mental status. History of pain from patient's chart and EMS pa shahid is a poor strain secondary to severely altered mental status MD Complaint: abnormal lab -: unknown Returns Today for: Called Because of Abnormal Lab/Test Symptoms Since Prior Visit: no new symptoms Associated Symptoms: none Treatments Prior to Arrival: other (none) - Related Data Home Medications Medication Instructions Recorded Confirmed Multivitamins, Thera [Multivitamin 1 tab PO DAILY 11/13/20 12/16/20 (formulary)] Furosemide [Lasix] 40 mg PO BID@0900,1700 12/16/20 12/16/20 INSULIN ASPART (NovoLOG) [NovoLOG See Protocol SQ ACHS 12/16/20 12/16/20 (formulary)] Nitroglycerin Sl Tabs [Nitrostat] 0.4 mg SL Q5M PRN 12/16/20 12/16/20 Pioglitazone [Actos] 45 mg PO DAILY 12/16/20 12/16/20 Ticagrelor [Brilinta] 90 mg PO BID@0900,1700 12/16/20 12/16/20 metFORMIN HCL 1,000 mg PO BID 12/16/20 12/16/20 Previous Rx's Medication Instructions Recorded Acetaminophen Tab [Tylenol] 500 mg PO AC-TID #0 11/25/20 Aspirin 81 mg PO DAILY chew 11/25/20 Atorvastatin [Lipitor] 20 mg PO HS tab 11/25/20 Famotidine [Pepcid] 20 mg PO DAILY tab 11/25/20 Metoprolol Tartrate [Lopressor] 25 mg PO BID tab 11/25/20 Spironolactone [Aldactone] 25 mg PO DAILY tab 11/25/20 lisinopriL [Zestril] 2.5 mg PO DAILY tab 11/25/20 Allergies Allergy/AdvReac Type Severity Reaction Status Date / Time No Known Allergies Allergy Verified 12/16/20 06:18 Review of Systems ROS Statement: Those systems with pertinent positive or pertinent negative responses have been documented in the HPI. ROS Other: All systems not noted in ROS Statement are negative. Past Medical History Past Medical History: Diabetes Mellitus History of Any Multi-Drug Resistant Organisms: None Reported Past Surgical History: No Surgical Hx Reported Past Psychological History: No Psychological Hx Reported Smoking Status: Former smoker Past Alcohol Use History: None Reported Past Drug Use History: None Reported - Past Family History Father Family Medical History: Diabetes Mellitus, Myocardial Infarction ([place]) General Exam Limitations: altered mental status General appearance: alert, anxious, lethargic, obtunded, in distress, obese Head exam: Present: atraumatic, normocephalic, normal inspection Eye exam: Present: normal appearance, PERRL, EOMI. Absent: scleral icterus, conjunctival injection, periorbital swelling ENT exam: Present: normal exam, mucous membranes moist Neck exam: Present: normal inspection. Absent: tenderness, meningismus, lymphadenopathy Respiratory exam: Present: normal lung sounds bilaterally. Absent: respiratory distress, wheezes, rales, rhonchi, stridor Cardiovascular Exam: Present: regular rate, normal rhythm, normal heart sounds. Absent: systolic murmur, diastolic murmur, rubs, gallop, clicks GI/Abdominal exam: Present: soft, normal bowel sounds. Absent: distended, tenderness, guarding, rebound, rigid Extremities exam: Present: normal inspection, full ROM, normal capillary refill. Absent: tenderness, pedal edema, joint swelling, calf tenderness Back exam: Present: normal inspection Neurological exam: Present: alert, oriented X3, CN II-XII intact Psychiatric exam: Present: normal affect, normal mood Skin exam: Present: warm, dry, intact, normal color. Absent: rash Course Vital Signs 12/15/20 12/16/20 12/16/20 23:58 00:54 01:17 Temperature 97.5 F L Pulse Rate 89 97 Respiratory 18 18 Rate Blood Pressure 100/49 90/49 98/43 O2 Sat by Pulse 98 91 L Oximetry 12/16/20 12/16/20 12/16/20 01:30 01:48 01:54 Temperature Pulse Rate 91 93 Respiratory 25 H Rate Blood Pressure 60/41 100/41 O2 Sat by Pulse 99 Oximetry 12/16/20 12/16/20 12/16/20 01:58 02:00 02:11 Temperature Pulse Rate 88 97 Respiratory 22 Rate Blood Pressure 88/45 84/43 O2 Sat by Pulse Oximetry 12/16/20 12/16/20 12/16/20 02:30 02:45 02:48 Temperature Pulse Rate 98 110 H 101 H Respiratory 30 H 27 H 32 H Rate Blood Pressure 71/42 78/61 76/43 O2 Sat by Pulse 97 94 L 92 L Oximetry 12/16/20 12/16/20 12/16/20 03:00 03:15 03:30 Temperature Pulse Rate 99 100 92 Respiratory 29 H 28 H 30 H Rate Blood Pressure 76/43 82/47 115/56 O2 Sat by Pulse 96 98 96 Oximetry 12/16/20 12/16/20 12/16/20 03:44 03:45 04:00 Temperature Pulse Rate 98 98 97 Respiratory 26 H 22 30 H Rate Blood Pressure 72/36 72/36 63/33 O2 Sat by Pulse 97 98 97 Oximetry 12/16/20 12/16/20 12/16/20 04:15 04:22 04:30 Temperature Pulse Rate 95 79 87 Respiratory 24 23 28 H Rate Blood Pressure 67/39 65/38 65/38 O2 Sat by Pulse 100 99 98 Oximetry 12/16/20 12/16/20 12/16/20 04:45 05:00 05:15 Temperature Pulse Rate 115 H 112 H 114 H Respiratory 31 H 30 H 24 Rate Blood Pressure 115/52 123/88 80/38 O2 Sat by Pulse 100 100 99 Oximetry 12/16/20 12/16/20 12/16/20 05:30 05:45 06:00 Temperature Pulse Rate 105 H 108 H 116 H Respiratory 25 H 29 H 20 Rate Blood Pressure 115/56 124/52 87/63 O2 Sat by Pulse 100 100 100 Oximetry 12/16/20 12/16/20 12/16/20 06:15 06:30 06:45 Temperature Pulse Rate 120 H 105 H 118 H Respiratory 20 25 H 24 Rate Blood Pressure 138/57 133/67 121/55 O2 Sat by Pulse 99 99 100 Oximetry 12/16/20 12/16/20 12/16/20 07:00 07:15 07:30 Temperature Pulse Rate 117 H 122 H 121 H Respiratory 24 22 24 Rate Blood Pressure 133/63 125/58 134/59 O2 Sat by Pulse 100 100 100 Oximetry 12/16/20 07:45 Temperature Pulse Rate 113 H Respiratory 14 Rate Blood Pressure 120/55 O2 Sat by Pulse 100 Oximetry - Reevaluation(s) Reevaluation #1: 12/16/20 00:01 Medical records reviewed Reevaluation #2: Patient symptoms progressively worsened throughout ER stay potassium has improved Patient will need intubation for airway protection and severe respiratory failure secondary to CHF fluid resuscitation acute renal failure with hyperkalemia Patient has no urinary output Central line is placed for both medication as well as pressors Patient will need dialysis - Consultations Consultation #1: Spoke with PMH, ICU, nephrology regarding patient care Procedures - Sepsis Sepsis Focused Exam #1 Time Sepsis Criteria Met: 03:00 Sepsis Focused Exam Complete: Yes Vital Signs & RN Notes Reviewed: Yes Capillary Refill: > 2 Seconds: Fingers, Toes Peripheral Pulses: Weak: Radial (R), Radial (L), Posterior Tibialis (R), Posterior Tibialis (L), Dorsalis Pedis (R), Dorsalis Pedis (L) Skin Color: Flushed, Erythema Respiratory Exam: respiratory distress, rales, rhonchi, decreased breath sounds Cardiovascular Exam: regular rate Medical Decision Making - Medical Decision Making 85 female with significant medical history coming in for elevated lab values, severe renal failure elevated potassium. Patient had severe respiratory failure here in the emergency department was intubated central line was placed secondary to shock likely from urinary tract infection, patient will need dialysis secondary to persistent hyperkalemia patient's prognosis is poor - Lab Data Result diagrams: 12/16/20 00:09 12/16/20 12:17 Lab Results 12/16/20 12/16/20 12/16/20 Range/Units 00:09 00:09 00:09 WBC 6.6 (3.8-10.6) k/uL RBC 3.24 L (3.80-5.40) m/uL Hgb 8.9 L (11.4-16.0) gm/dL Hct 29.0 L (34.0-46.0) % MCV 89.5 (80.0-100.0) fL MCH 27.6 (25.0-35.0) pg MCHC 30.9 L (31.0-37.0) g/dL RDW 19.1 H (11.5-15.5) % Plt Count 323 (150-450) k/uL MPV 8.0 Neutrophils % 82 % Lymphocytes % 11 % Monocytes % 4 % Eosinophils % 1 % Basophils % 0 % Neutrophils # 5.4 (1.3-7.7) k/uL Lymphocytes # 0.8 L (1.0-4.8) k/uL Monocytes # 0.3 (0-1.0) k/uL Eosinophils # 0.1 (0-0.7) k/uL Basophils # 0.0 (0-0.2) k/uL Hypochromasia Marked Anisocytosis Slight Sodium 139 (137-145) mmol/L Potassium 7.4 H* (3.5-5.1) mmol/L Chloride 98 (98-107) mmol/L Carbon Dioxide 9 L* (22-30) mmol/L Anion Gap 32 mmol/L BUN 88 H (7-17) mg/dL Creatinine 12.46 H* (0.52-1.04) mg/dL Est GFR (CKD-EPI)AfAm 3 (>60 ml/min/1.73 sqM) Est GFR (CKD-EPI)NonAf 2 (>60 ml/min/1.73 sqM) Glucose 94 (74-99) mg/dL Calcium 9.3 (8.4-10.2) mg/dL Phosphorus 10.0 H* (2.5-4.5) mg/dL Magnesium 2.0 (1.6-2.3) mg/dL Total Bilirubin 0.5 (0.2-1.3) mg/dL AST 32 (14-36) U/L ALT 12 (4-34) U/L Alkaline Phosphatase 68 (38-126) U/L Creatine Kinase 92 (30-135) U/L Troponin I 0.301 H* (0.000-0.034) ng/mL NT-Pro-B Natriuret Pep pg/mL Total Protein 6.9 (6.3-8.2) g/dL Albumin 4.2 (3.5-5.0) g/dL Urine Color Urine Appearance (Clear) Urine RBC (0-5) /hpf Urine WBC (0-5) /hpf Urine WBC Clumps (None) /hpf Ur Squamous Epith Cells (0-4) /hpf Urine Bacteria (None) /hpf 12/16/20 12/16/20 Range/Units 00:09 00:09 WBC (3.8-10.6) k/uL RBC (3.80-5.40) m/uL Hgb (11.4-16.0) gm/dL Hct (34.0-46.0) % MCV (80.0-100.0) fL MCH (25.0-35.0) pg MCHC (31.0-37.0) g/dL RDW (11.5-15.5) % Plt Count (150-450) k/uL MPV Neutrophils % % Lymphocytes % % Monocytes % % Eosinophils % % Basophils % % Neutrophils # (1.3-7.7) k/uL Lymphocytes # (1.0-4.8) k/uL Monocytes # (0-1.0) k/uL Eosinophils # (0-0.7) k/uL Basophils # (0-0.2) k/uL Hypochromasia Anisocytosis Sodium (137-145) mmol/L Potassium (3.5-5.1) mmol/L Chloride (98-107) mmol/L Carbon Dioxide (22-30) mmol/L Anion Gap mmol/L BUN (7-17) mg/dL Creatinine (0.52-1.04) mg/dL Est GFR (CKD-EPI)AfAm (>60 ml/min/1.73 sqM) Est GFR (CKD-EPI)NonAf (>60 ml/min/1.73 sqM) Glucose (74-99) mg/dL Calcium (8.4-10.2) mg/dL Phosphorus (2.5-4.5) mg/dL Magnesium (1.6-2.3) mg/dL Total Bilirubin (0.2-1.3) mg/dL AST (14-36) U/L ALT (4-34) U/L Alkaline Phosphatase (38-126) U/L Creatine Kinase (30-135) U/L Troponin I (0.000-0.034) ng/mL NT-Pro-B Natriuret Pep 09887 pg/mL Total Protein (6.3-8.2) g/dL Albumin (3.5-5.0) g/dL Urine Color Light Brown Urine Appearance Turbid H (Clear) Urine RBC >182 H (0-5) /hpf Urine WBC >182 H (0-5) /hpf Urine WBC Clumps Many H (None) /hpf Ur Squamous Epith Cells 22 H (0-4) /hpf Urine Bacteria Moderate H (None) /hpf - EKG Data -: EKG Interpreted by Me (EKG shows rhythm of 167 QRS 166 QTC 513, heart rate does appear to be in th) - Radiology Data Radiology results: report reviewed (Chest x-ray x-ray KUB with multiple x-rays and done here in the ER shows pulmonary edema), image reviewed Critical Care Time Critical Care Time: Yes Total Critical Care Time: 95 Disposition Clinical Impression: Acute pulmonary edema, Acute respiratory failure, CHF (congestive heart failure), Acute renal failure, CAD (coronary artery disease), UTI (urinary tract infection), Sepsis, Hyperkalemia Disposition: ADMITTED IP TO THIS HOSP Condition: Critical Is patient prescribed a controlled substance at d/c from ED?: No
[2020-12-16 00:18] LABS: Anisocytosis Slight; Basophils % (A) 0 %; Eosinophils # (A) 0.1 k/uL (0-0.7); Eosinophils % (A) 1 %; HGB 8.9 gm/dL (11.4-16.0); Hypochromasia Marked; Lymphocytes # (A) 0.8 k/uL (1.0-4.8); Lymphocytes % (A) 11 %; MCH 27.6 pg (25.0-35.0); MCHC 30.9 g/dL (31.0-37.0); MCV 89.5 fL (80.0-100.0); Monocytes # (A) 0.3 k/uL (0-1.0); Monocytes % (A) 4 %; Neutrophils # (A) 5.4 k/uL (1.3-7.7); Neutrophils % (A) 82 %; Platelet Count 323 k/uL (150-450); RBC 3.24 m/uL (3.80-5.40); RDW 19.1 % (11.5-15.5); WBC 6.6 k/uL (3.8-10.6)
[2020-12-16 00:34] LABS: Bacteria,Urine Moderate /hpf; RBC,Urine >182 /hpf (0-5); Squamous Epithelial Cell,Urine 22 /hpf (0-4); WBC,Urine >182 /hpf (0-5)
[2020-12-16 00:35] LABS: Albumin 4.2 g/dL (3.5-5.0); Calcium 9.3 mg/dL (8.4-10.2); Total Bilirubin 0.5 mg/dL (0.2-1.3); Total Protein 6.9 g/dL (6.3-8.2)
[2020-12-16] MEDS ORDERED: CALCIUM GLUCONATE 2 GM in SODIUM CHLORIDE 0.9% 100 ML IVPB ONE (00:38)
[2020-12-16] MEDS ORDERED: CALCIUM CHLORIDE 100 MG/ML 10 ML SYRINGE IVP STA (00:38)
[2020-12-16] MEDS ORDERED: DEXTROSE 50% SYRINGE 50 ML IVP STA ×3 (00:38→14:11)
[2020-12-16] MEDS ORDERED: SODIUM CHLORIDE 0.9% 1,000 ML IV STA (00:38)
[2020-12-16] MEDS ORDERED: INSULIN REGULAR 100 UNIT/ML VIAL IV ONE (00:38)
[2020-12-16 00:40] LABS: Appearance,Urine Turbid (Clear)
[2020-12-16 00:41] LABS: Color,Urine Light Brown
[2020-12-16 00:43] LABS: Potassium 7.4 mmol/L (3.5-5.1)
--- NOTE | 2020-12-16 00:46 | XR ---
EXAM: XR Chest, 1 View CLINICAL HISTORY: ITS.REASON XR Reason: Weakness TECHNIQUE: Frontal view of the chest. COMPARISON: 11/20/2020. FINDINGS: Lungs: Prominence of central pulmonary vasculature. Pleural space: Small left pleural effusion appeared No pneumothorax. Heart: Cardiomegaly. Mediastinum: Unremarkable. Bones/joints: Osteopenia. 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 Vasculature: Atherosclerotic disease of the aortic knob. Other findings: There is mild hypoaeration. IMPRESSION: 1. Cardiomegaly and findings worrisome for incipient congestive heart failure. Clinical correlation is advised. 2. Osteopenia.
[2020-12-16] MEDS ORDERED: SODIUM BICARB 8.4% 50 ML SYR (1 MEQ/ML) IV STA ×4 (01:15→03:49)
[2020-12-16] MEDS ORDERED: SODIUM CHLORIDE 0.9% 500 ML 500 ML IV STA (01:16)
[2020-12-16] MEDS ORDERED: FUROSEMIDE 10 MG/ML 4 ML VIAL IV STA (01:18)
[2020-12-16] MEDS ORDERED: MORPHINE SULFATE 2 MG/ML SYRINGE IV PRN ×2 (01:23→14:54)
[2020-12-16] MEDS ORDERED: IPRATROPIUM-ALBUTEROL 3 ML NEB INHALATION PRN (01:23)
[2020-12-16] MEDS ORDERED: NALOXONE 0.4 MG/ML 1 ML VIAL IV PRN (01:23)
[2020-12-16] MEDS ORDERED: ALBUTEROL NEBULIZED 2.5 MG/3 ML INHALATION STA (01:27)
[2020-12-16] MEDS ORDERED: DEXTROSE 5%-0.9% NACL 1,000 ML IV SCH (01:30)
[2020-12-16] MEDS ORDERED: ALBUTEROL NEB (CONC) 2.5 MG/0.5 ML INHALATION STA (01:35)
[2020-12-16 01:45] LABS: VBG PH 7.11 (7.31-7.41)
[2020-12-16] MEDS: SODIUM CHLORIDE 0.9% 1,000 ML IV STA ×2 (01:56→02:33)
[2020-12-16] MEDS ORDERED: ONDANSETRON 4 MG/2 ML VIAL IVP STA (02:21)
[2020-12-16] MEDS ORDERED: ONDANSETRON 4 MG/2 ML VIAL IVP PRN (02:21)
[2020-12-16] MEDS ORDERED: LORazepam 2 MG/ML INJ IV PRN (02:21)
[2020-12-16] MEDS ORDERED: LORazepam 2 MG/ML INJ IV STA (02:21)
[2020-12-16] MEDS ORDERED: PANTOPRAZOLE 40 MG/10 ML VIAL IVP ONE (02:21)
[2020-12-16 02:32] LABS: Glucose,Whole Blood 60 mg/dL (75-99)
--- NOTE | 2020-12-16 02:50 | XR ---
EXAM: XR Chest, 1 View CLINICAL HISTORY: Chest pain. TECHNIQUE: Frontal view of the chest. COMPARISON: 12/16/2020. FINDINGS: Lungs: Minimal subsegmental atelectasis at the left lung base. Pleural space: Unremarkable. No pneumothorax. Heart: There is cardiomegaly. Mediastinum: Unremarkable. Bones/joints: Osteopenia. Vasculature: Atherosclerotic disease of the aortic knob. IMPRESSION: 1. Cardiomegaly, similar to that noted on the previous study. 2. Hypoaeration. 3. Atherosclerotic disease of the aortic knob. 4. Osteopenia. 5. Probable minimal subsegmental atelectasis at the left lung base.
--- NOTE | 2020-12-16 02:52 | XR ---
EXAM: XR Abdomen, 1 View CLINICAL HISTORY: ITS.REASON XR Reason: pain TECHNIQUE: Frontal supine view of the abdomen/pelvis. COMPARISON: No previous study. FINDINGS: Intraperitoneal space: Pelvic fluid bolus. Gastrointestinal tract: Mildly distended air-filled stomach. Nonspecific bowel gas pattern. Bones/joints: Degenerative disc disease of the visualized spine. IMPRESSION: 1. Mildly distended air-filled stomach. 2. Nonspecific bowel gas pattern. 3. Degenerative disc disease.
[2020-12-16] MEDS ORDERED: fentaNYL (PF) 50 MCG/ML 2 ML AMP IVP PRN (03:23)
[2020-12-16 03:42] LABS: Calcium 10.4 mg/dL (8.4-10.2); Potassium 5.8 mmol/L (3.5-5.1)
[2020-12-16 03:45] LABS: Glucose,Whole Blood 134 mg/dL (75-99)
[2020-12-16] MEDS ORDERED: SUCCINYLCHOLINE CHLORIDE VIAL 200 MG/10 ML VIAL IV STA (04:10)
[2020-12-16] MEDS ORDERED: MIDAZOLAM 1 MG/ML 5 ML VIAL IV STA ×3 (04:10→04:58)
[2020-12-16] MEDS ORDERED: NOREPINEPHRINE 32 MG in SODIUM CHLORIDE 0.9% 218 ML IV SCH (04:15)
[2020-12-16] MEDS ORDERED: MIDAZOLAM HCL 50 MG in SODIUM CHLORIDE 0.9% 40 ML IV SCH (04:30)
[2020-12-16] MEDS ORDERED: SODIUM CHLORIDE 0.9% 1,000 ML IV ONE ×2 (04:55→06:30)
[2020-12-16] MEDS ORDERED: SODIUM CHLORIDE 0.9% 500 ML 500 ML IV ONE (04:55)
[2020-12-16] MEDS: fentaNYL (PF). 1,000 MCG in SODIUM CHLORIDE 0.9% 80 ML IV SCH ×2 (04:59→10:20)
[2020-12-16] MEDS ORDERED: DEXTROSE 5% IN WATER 1,000 ML with SODIUM BICARB (1 MEQ/ML) 150 ML IV SCH (05:00)
[2020-12-16 05:09] LABS: ABG Base Excess -21.4 mmol/L; ABG Oxygen Saturation 99.9 % (94-97); ABG PCO2 28 mmHg (35-45); ABG PO2 354 mmHg (83-108); ABG TCO2 9 mmol/L (19-24); Allen Test Performed? Yes
--- NOTE | 2020-12-16 05:13 | XR ---
EXAM: XR Chest, 1 View CLINICAL HISTORY: ITS.REASON XR Reason: placement TECHNIQUE: Frontal view of the chest. COMPARISON: 12/16/2020 IMPRESSION: ET tube terminates 4.3 cm from the segundo. NG tube terminates in the mid esophagus. Recommend advancing 15 cm.
[2020-12-16 05:15] LABS: ABG HCO3 9 mmol/L (21-25); ABG PH 7.09 (7.35-7.45)
[2020-12-16 07:12] LABS: Calcium 8.1 mg/dL (8.4-10.2); Potassium 5.5 mmol/L (3.5-5.1)
--- NOTE | 2020-12-16 07:24 | XR ---
EXAMINATION TYPE: XR chest 1V confirm line [facility] DATE OF EXAM: 12/16/2020 HISTORY: Shortness of breath. COMPARISON: 12/16/2020 TECHNIQUE: Single view of the chest is submitted. FINDINGS: Endotracheal tube is well-positioned. NG tube is seen coursing into the stomach. Patchy perihilar and basilar infiltrates persist essentially unchanged. The heart is stable. Hilar and mediastinal structures are within normal limits. Degenerative changes are seen of the dorsal spine. IMPRESSION: 1. Stable chest.
[2020-12-16 08:08] LABS: Glucose,Whole Blood 237 mg/dL (75-99)
[2020-12-16] MEDS ORDERED: CISATRACURIUM 2 MG/ML 5 ML VIAL IV ONE (08:45)
[2020-12-16] MEDS ORDERED: ENOXAPARIN 40 MG/0.4 ML SYRINGE SQ SCH (09:00)
[2020-12-16] MEDS ORDERED: CHLORHEXIDINE GLUCONATE 15 ML CUP MUCOUS MEM SCH (09:00)
[2020-12-16] MEDS ORDERED: PANTOPRAZOLE 40 MG/10 ML VIAL IV SCH (09:00)
[2020-12-16 09:45] LABS: ABG Base Excess -23.1 mmol/L; ABG Oxygen Saturation 98.7 % (94-97); ABG PCO2 26 mmHg (35-45); ABG PO2 155 mmHg (83-108); ABG TCO2 8 mmol/L (19-24)
[2020-12-16 09:49] LABS: ABG HCO3 7 mmol/L (21-25); ABG PH 7.06 (7.35-7.45); Allen Test Performed? no
--- NOTE | 2020-12-16 09:53 | P.CNPUL ---
History of Present Illness Consult date: 12/16/20 Requesting physician: Ruy Del Cid Reason for consult: hypoxemia Chief complaint: Respiratory failure. History of present illness: Pulmonary consult dated 12/16/2020. 85-year-old female, who was accepted in transfer from one of the local nursing homes. She is apparently found to be very poorly responsive are unresponsive. In addition, she had very abnormal lab values including an elevated BUN and creatinine, as well as significant mental status changes. It appears that she was likely intubated in the emergency department because of mental status changes and her inability to protect her airway. We saw her in the emergency room, and trauma to room. The patient was then transferred up to the intensive care unit, room 259. We saw her in the emergency room, she was on the volume assist control mode rate of 16, tidal volume on 100% showed a PaO2 of 354, PaCO2 of 28, and a pH is 7.09. She was dyssynchronous with the ventilator, so we gave her a Nimbex, and bumped her rate up to 24. 400, FiO2 50%, PEEP of 5. Arterial blood gases, showed a PaO2 of 354, P CO2 of 28, and a pH of 7.09. Because she was dyssynchronous with the ventilator, we increased the respiratory rate on the ventilator to 24, and gave her 1 time dose of Nimbex, 10 mg. Currently, she is on fentanyl 1.5 mcg/kg/h, norepinephrine at 0.4 mcg/kg/m, a Versed drip at 6 mg an hour, and 3 ampules of sodium bicarbonate and D5W at 100 mL an hour. An arterial line will be placed. In addition, we will DC the Versed in favor of propofol. A repeat blood gas will be done. White count 6.6, hemoglobin 8.9, hematocrit 29, platelet count 323,000. Sodium 143, potassium 5.5, chlorides 109, CO2 7, anion gap 27, BUN and creatinine 71 and 9.65. Lactic acid was 14.4, calcium 8.1, phosphorus 10, and troponin 0.301. N-terminal proBNP was 28,400. Urine was light brown, turbid, with greater than 182 WBCs, and moderate bacteria. Coronavirus testing was negative. Review of Systems Because the patient is intubated, and sedated, no review of systems could be obtained. Past Medical History Past Medical History: Diabetes Mellitus Additional Past Medical History / Comment(s): pulmonary edema, cardiomyopathy, aortic stenosis History of Any Multi-Drug Resistant Organisms: None Reported Past Surgical History: No Surgical Hx Reported Past Psychological History: No Psychological Hx Reported Smoking Status: Former smoker Past Alcohol Use History: None Reported Past Drug Use History: None Reported - Past Family History Father Family Medical History: Diabetes Mellitus, Myocardial Infarction ([place]) Medications and Allergies Home Medications Medication Instructions Recorded Confirmed Type Multivitamins, Thera [Multivitamin 1 tab PO DAILY 11/13/20 12/16/20 History (formulary)] Acetaminophen Tab [Tylenol] 500 mg PO AC-TID #0 11/25/20 12/16/20 Rx Aspirin 81 mg PO DAILY chew 11/25/20 12/16/20 Rx Atorvastatin [Lipitor] 20 mg PO HS tab 11/25/20 12/16/20 Rx Famotidine [Pepcid] 20 mg PO DAILY tab 11/25/20 12/16/20 Rx Metoprolol Tartrate [Lopressor] 25 mg PO BID tab 11/25/20 12/16/20 Rx Spironolactone [Aldactone] 25 mg PO DAILY tab 11/25/20 12/16/20 Rx lisinopriL [Zestril] 2.5 mg PO DAILY tab 11/25/20 12/16/20 Rx Furosemide [Lasix] 40 mg PO BID@0900,1700 12/16/20 12/16/20 History INSULIN ASPART (NovoLOG) [NovoLOG See Protocol SQ ACHS 12/16/20 12/16/20 History (formulary)] Nitroglycerin Sl Tabs [Nitrostat] 0.4 mg SL Q5M PRN 12/16/20 12/16/20 History Pioglitazone [Actos] 45 mg PO DAILY 12/16/20 12/16/20 History Ticagrelor [Brilinta] 90 mg PO BID@0900,1700 12/16/20 12/16/20 History metFORMIN HCL 1,000 mg PO BID 12/16/20 12/16/20 History Allergies Allergy/AdvReac Type Severity Reaction Status Date / Time No Known Allergies Allergy Verified 12/16/20 06:18 Physical Exam Osteopathic Statement: *. No significant issues noted on an osteopathic structural exam other than those noted in the History and Physical/Consult. Vitals: Vital Signs Temp Pulse Pulse Resp BP BP Pulse Ox 12/16/20 09:00 115 H 24 90/47 99 12/16/20 08:45 113 H 16 97/48 99 12/16/20 08:30 119 H 16 96/46 98 12/16/20 08:15 98.5 F 119 H 16 90/54 98 12/16/20 07:45 113 H 14 120/55 100 12/16/20 07:30 121 H 24 134/59 100 12/16/20 07:15 122 H 22 125/58 100 12/16/20 07:00 117 H 24 133/63 100 12/16/20 06:45 118 H 24 121/55 100 12/16/20 06:30 105 H 25 H 133/67 99 12/16/20 06:15 120 H 20 138/57 99 12/16/20 06:00 116 H 20 87/63 100 12/16/20 05:45 108 H 29 H 124/52 100 12/16/20 05:30 105 H 25 H 115/56 100 12/16/20 05:15 114 H 24 80/38 99 12/16/20 05:00 112 H 30 H 123/88 100 12/16/20 04:45 115 H 31 H 115/52 100 12/16/20 04:30 87 28 H 65/38 98 12/16/20 04:22 79 23 65/38 99 12/16/20 04:15 95 24 67/39 100 12/16/20 04:00 97 30 H 63/33 97 12/16/20 03:45 98 22 72/36 98 12/16/20 03:44 98 26 H 72/36 97 12/16/20 03:30 92 30 H 115/56 96 12/16/20 03:15 100 28 H 82/47 98 12/16/20 03:00 99 29 H 76/43 96 12/16/20 02:48 101 H 32 H 76/43 92 L 12/16/20 02:45 110 H 27 H 78/61 94 L 12/16/20 02:30 98 30 H 71/42 97 12/16/20 02:11 97 22 84/43 12/16/20 02:00 88/45 12/16/20 01:58 88 04/26/21 01:54 93 25 H 100/41 99 12/16/20 01:48 91 12/16/20 01:30 60/41 12/16/20 01:17 98/43 12/16/20 00:54 97 18 90/49 91 L 12/15/20 23:58 97.5 F L 89 18 100/49 98 Intake and Output 12/15/20 12/16/20 12/16/20 22:59 06:59 14:59 Intake Total 43.438 56.379 Output Total 0 Balance 43.438 56.379 Intake: Intake, IV Titration 43.438 56.379 Amount Midazolam HCl 50 mg In 5.400 15.775 Sodium Chloride 0.9% 40 ml @ 1 MG/HR 1 mls/hr IV .Q24H FELICIA Rx#:[id number] Norepinephrine 32 mg In 26.281 Sodium Chloride 0.9% 218 ml @ 0.05 MCG/KG/MIN 2. 551 mls/hr IV .Q24H FELICIA Rx#:[id number] fentaNYL (PF). 1,000 mcg 11.757 35.652 In Sodium Chloride 0.9% 80 ml @ Per Protocol IV . Q0M FELICIA Rx#:[id number] propofoL 1,000 mg In 4.952 Empty Bag 1 bag @ Titrate IV .Q0M FELICIA Rx#: [id number] Output: Urine 0 Other: Weight 108.862 kg Sedated, with an orally placed endotracheal tube and NG tube. HEENT examination is grossly unremarkable. Neck supple. Full range of motion. No adenopathy thyromegaly or neck vein distention. Cardiovascular examination reveals regular rhythm rate. S1-S2 normal. No S3 or S4. No discernible murmur noted. Heart sounds are distant. Heart rate 115 bpm . Lungs reveal coarse bilateral breath sounds. No wheezes. Diffuse bilateral rhonchi are noted. Breath sounds equal. Abdomen soft, without bowel sounds. No masses. Extremities are intact. No cyanosis clubbing or edema. Extremities are cool. Skin is without rash or lesion. Neurologic examination could not be properly assessed. Results - Laboratory Findings CBC and BMP: 12/16/20 00:09 12/16/20 06:50 ABG ABG pH 7.09 (7.35-7.45) L* 12/16/20 05:07 ABG pCO2 28 mmHg (35-45) L 12/16/20 05:07 ABG pO2 354 mmHg (83-108) H 12/16/20 05:07 ABG O2 Saturation 99.9 % (94-97) H 12/16/20 05:07 Abnormal lab findings: Abnormal Labs 12/16/20 12/16/20 12/16/20 00:09 00:09 00:09 RBC 3.24 L Hgb 8.9 L Hct 29.0 L MCHC 30.9 L RDW 19.1 H Lymphocytes # 0.8 L ABG pH ABG pCO2 ABG pO2 ABG HCO3 ABG Total CO2 ABG O2 Saturation VBG pH VBG pCO2 VBG HCO3 Potassium 7.4 H* Chloride Carbon Dioxide 9 L* BUN 88 H Creatinine 12.46 H* Glucose POC Glucose (mg/dL) Plasma Lactic Acid Jeremie Calcium Phosphorus 10.0 H* Troponin I 0.301 H* Urine Appearance Urine RBC Urine WBC Urine WBC Clumps Ur Squamous Epith Cells Urine Bacteria 12/16/20 12/16/20 12/16/20 00:09 01:30 01:30 RBC Hgb Hct MCHC RDW Lymphocytes # ABG pH ABG pCO2 ABG pO2 ABG HCO3 ABG Total CO2 ABG O2 Saturation VBG pH 7.11 L* VBG pCO2 30 L VBG HCO3 9 L* Potassium Chloride Carbon Dioxide BUN Creatinine Glucose POC Glucose (mg/dL) Plasma Lactic Acid Jeremie 10.2 H* Calcium Phosphorus Troponin I Urine Appearance Turbid H Urine RBC >182 H Urine WBC >182 H Urine WBC Clumps Many H Ur Squamous Epith Cells 22 H Urine Bacteria Moderate H 12/16/20 12/16/20 12/16/20 02:29 03:11 03:25 RBC Hgb Hct MCHC RDW Lymphocytes # ABG pH ABG pCO2 ABG pO2 ABG HCO3 ABG Total CO2 ABG O2 Saturation VBG pH VBG pCO2 VBG HCO3 Potassium 5.8 H Chloride Carbon Dioxide 7 L* BUN 83 H Creatinine 12.07 H* Glucose 147 H POC Glucose (mg/dL) 60 L 134 H Plasma Lactic Acid Jeremie Calcium 10.4 H Phosphorus Troponin I Urine Appearance Urine RBC Urine WBC Urine WBC Clumps Ur Squamous Epith Cells Urine Bacteria 12/16/20 12/16/20 12/16/20 04:54 05:07 06:50 RBC Hgb Hct MCHC RDW Lymphocytes # ABG pH 7.09 L* ABG pCO2 28 L ABG pO2 354 H ABG HCO3 9 L* ABG Total CO2 9 L ABG O2 Saturation 99.9 H VBG pH VBG pCO2 VBG HCO3 Potassium 5.5 H Chloride 109 H Carbon Dioxide 7 L* BUN 71 H Creatinine 9.65 H* Glucose 254 H POC Glucose (mg/dL) Plasma Lactic Acid Jeremie 14.4 H* Calcium 8.1 L Phosphorus Troponin I Urine Appearance Urine RBC Urine WBC Urine WBC Clumps Ur Squamous Epith Cells Urine Bacteria 12/16/20 08:07 RBC Hgb Hct MCHC RDW Lymphocytes # ABG pH ABG pCO2 ABG pO2 ABG HCO3 ABG Total CO2 ABG O2 Saturation VBG pH VBG pCO2 VBG HCO3 Potassium Chloride Carbon Dioxide BUN Creatinine Glucose POC Glucose (mg/dL) 237 H Plasma Lactic Acid Jeremie Calcium Phosphorus Troponin I Urine Appearance Urine RBC Urine WBC Urine WBC Clumps Ur Squamous Epith Cells Urine Bacteria - Diagnostic Findings Chest x-ray: image reviewed Assessment and Plan Assessment: Acute hypoxemic respiratory failure, requiring intubation and mechanical ventilation on December 16. Severe anion gap metabolic acidosis. Profound lactic acidemia. Acute kidney injury. Hyperkalemia. Probable urinary tract infection. Rule out sepsis/septic shock. Rule out acute myocardial ischemia. History of diabetes mellitus. Plan: Plan dated 12/16/2020. An arterial line will be placed. Repeat blood gas will be done. Likely, we'll be able to reduce the FiO2. The patient's already on a bicarbonate drip. We will increase the norepinephrine to maximal dose which is 1 mcg/kg/m. If the blood pressure does not respond, we will add vasopressin. The patient will likely need dialysis although, she is not stable enough for dialysis at this time. Additional recommendations and suggestions forthcoming. We will continue to follow. We will DC the Versed in favor of propofol. In addition, the patient did receive 1 time dose of Nimbex 10 mg, and the rate on the ventilator was increased to 24. Overall prognosis is very poor. Additional recommen dations and suggestions are forthcoming pending the patient's overall status. She does have a central line replaced in the groin area. Time with Patient: Greater than 30
[2020-12-16] MEDS: SODIUM CHLORIDE 0.9% 150 ML with VASOPRESSIN 60 UNIT IV SCH ×4 (10:13→10:15)
[2020-12-16 10:26] LABS: INR 1.1 (<1.2); Partial Thromboplastin Time 24.6 sec (22.0-30.0); Prothrombin Time 11.4 sec (9.0-12.0)
[2020-12-16 10:30] LABS: Glucose,Whole Blood 329 mg/dL (75-99)
--- NOTE | 2020-12-16 10:58 | P.NPCON ---
History of Present Illness - Reason for Consult acute renal failure, hyperkalemia - History of Present Illness Reason for consultation: Acute kidney injury History of present illness: Patient is a 85-year-old female seen in renal consultation for acute kidney injury and hyperkalemia. Patient baseline creatinine is near 1 and was elevated at 12.46 this admission. Potassium level was also 7.4 which was medically treated with IV calcium, IV insulin with D50, Lasix, sodium bicarbonate. Repeat potassium level is 5.5. Patient's currently in the ICU. She is intubated. Oliguric. She is on maximum dose of Levophed and vasopressin is being added. She also received 2 L of normal saline bolus and is now maintained on bicarb drip running at 100 mL an hour. Patient has history of coronary artery disease and a stent placed to the LAD earlier this month. Her ejection fraction is 20- 25%. She was also on Lasix at home as well as lisinopril and spironolactone which are currently held. She was brought to the hospital due to decreased responsiveness and abnormal labs by the EMS. She does have history of diabetes and was on metformin outpatient. I don't see any nonsteroidals and her medication list. Vital signs: Tachycardic and hypotensive on vasopressor support. General: The patient appeared well nourished and normally developed. HEENT: Intubated. LUNGS: Breath sounds decreased. HEART: Tachycardic. ABDOMEN: Soft, obese. EXTREMITITES: No edema. Past Medical History Past Medical History: Diabetes Mellitus Additional Past Medical History / Comment(s): pulmonary edema, cardiomyopathy, aortic stenosis History of Any Multi-Drug Resistant Organisms: None Reported Past Surgical History: No Surgical Hx Reported Past Psychological History: No Psychological Hx Reported Smoking Status: Former smoker Past Alcohol Use History: None Reported Past Drug Use History: None Reported - Past Family History Father Family Medical History: Diabetes Mellitus, Myocardial Infarction ([place]) Medications and Allergies Home Medications Medication Instructions Recorded Confirmed Type Multivitamins, Thera [Multivitamin 1 tab PO DAILY 11/13/20 12/16/20 History (formulary)] Acetaminophen Tab [Tylenol] 500 mg PO AC-TID #0 11/25/20 12/16/20 Rx Aspirin 81 mg PO DAILY chew 11/25/20 12/16/20 Rx Atorvastatin [Lipitor] 20 mg PO HS tab 11/25/20 12/16/20 Rx Famotidine [Pepcid] 20 mg PO DAILY tab 11/25/20 12/16/20 Rx Metoprolol Tartrate [Lopressor] 25 mg PO BID tab 11/25/20 12/16/20 Rx Spironolactone [Aldactone] 25 mg PO DAILY tab 11/25/20 12/16/20 Rx lisinopriL [Zestril] 2.5 mg PO DAILY tab 11/25/20 12/16/20 Rx Furosemide [Lasix] 40 mg PO BID@0900,1700 12/16/20 12/16/20 History INSULIN ASPART (NovoLOG) [NovoLOG See Protocol SQ ACHS 12/16/20 12/16/20 History (formulary)] Nitroglycerin Sl Tabs [Nitrostat] 0.4 mg SL Q5M PRN 12/16/20 12/16/20 History Pioglitazone [Actos] 45 mg PO DAILY 12/16/20 12/16/20 History Ticagrelor [Brilinta] 90 mg PO BID@0900,1700 12/16/20 12/16/20 History metFORMIN HCL 1,000 mg PO BID 12/16/20 12/16/20 History Allergies Allergy/AdvReac Type Severity Reaction Status Date / Time No Known Allergies Allergy Verified 12/16/20 06:18 Physical Exam Vitals: Vital Signs Temp Pulse Pulse Resp BP BP Pulse Ox 12/16/20 10:00 115 H 24 81/55 96 12/16/20 09:45 113 H 24 97 12/16/20 09:30 111 H 24 89/42 97 12/16/20 09:15 108 H 24 90/47 99 12/16/20 09:00 115 H 24 90/47 99 12/16/20 08:45 113 H 16 97/48 99 12/16/20 08:30 119 H 16 96/46 98 12/16/20 08:15 98.5 F 119 H 16 90/54 98 12/16/20 07:45 113 H 14 120/55 100 12/16/20 07:30 121 H 24 134/59 100 12/16/20 07:15 122 H 22 125/58 100 12/16/20 07:00 117 H 24 133/63 100 12/16/20 06:45 118 H 24 121/55 100 12/16/20 06:30 105 H 25 H 133/67 99 12/16/20 06:15 120 H 20 138/57 99 12/16/20 06:00 116 H 20 87/63 100 12/16/20 05:45 108 H 29 H 124/52 100 12/16/20 05:30 105 H 25 H 115/56 100 12/16/20 05:15 114 H 24 80/38 99 12/16/20 05:00 112 H 30 H 123/88 100 12/16/20 04:45 115 H 31 H 115/52 100 12/16/20 04:30 87 28 H 65/38 98 12/16/20 04:22 79 23 65/38 99 12/16/20 04:15 95 24 67/39 100 12/16/20 04:00 97 30 H 63/33 97 12/16/20 03:45 98 22 72/36 98 12/16/20 03:44 98 26 H 72/36 97 12/16/20 03:30 92 30 H 115/56 96 12/16/20 03:15 100 28 H 82/47 98 12/16/20 03:00 99 29 H 76/43 96 12/16/20 02:48 101 H 32 H 76/43 92 L 12/16/20 02:45 110 H 27 H 78/61 94 L 12/16/20 02:30 98 30 H 71/42 97 12/16/20 02:11 97 22 84/43 12/16/20 02:00 88/45 12/16/20 01:58 88 12/16/20 01:54 93 25 H 100/41 99 12/16/20 01:48 91 12/16/20 01:30 60/41 12/16/20 01:17 98/43 12/16/20 00:54 97 18 90/49 91 L 12/15/20 23:58 97.5 F L 89 18 100/49 98 Intake and Output 12/15/20 12/16/20 12/16/20 22:59 06:59 14:59 Intake Total 43.438 195.602 Output Total 0 Balance 43.438 195.602 Intake: Intake, IV Titration 43.438 195.602 Amount Midazolam HCl 50 mg In 5.400 15.775 Sodium Chloride 0.9% 40 ml @ 1 MG/HR 1 mls/hr IV .Q24H FELICIA Rx#:[id number] Norepinephrine 32 mg In 26.281 86.632 Sodium Chloride 0.9% 218 ml @ 0.05 MCG/KG/MIN 2. 551 mls/hr IV .Q24H FELICIA Rx#:[id number] fentaNYL (PF). 1,000 mcg 11.757 88.243 In Sodium Chloride 0.9% 80 ml @ Per Protocol IV . Q0M FELICIA Rx#:[id number] propofoL 1,000 mg In 4.952 Empty Bag 1 bag @ Titrate IV .Q0M FELICIA Rx#: [id number] Output: Urine 0 Other: Weight 108.862 kg ABP, PAP, CO, CI - Last 8 Hours Arterial Blood Pressure 82/34 Arterial Blood Pressure 101/35 Arterial Blood Pressure 68/43 Results - Lab Results Most recent lab results ABG pH 7.06 (7.35-7.45) L* 12/16/20 09:43 ABG pCO2 26 mmHg (35-45) L 12/16/20 09:43 ABG pO2 155 mmHg (83-108) H 12/16/20 09:43 ABG HCO3 7 mmol/L (21-25) L* 12/16/20 09:43 ABG O2 Saturation 98.7 % (94-97) H 12/16/20 09:43 Calcium 8.1 mg/dL (8.4-10.2) L 12/16/20 06:50 Phosphorus 10.0 mg/dL (2.5-4.5) H* 12/16/20 00:09 Magnesium 2.0 mg/dL (1.6-2.3) 12/16/20 00:09 12/16/20 00:09 12/16/20 06:50 Assessment and Plan Plan: Assessment: 1. Acute kidney injury secondary to ATN secondary to septic shock. Oliguric. Creatinine over 12 on admission. Baseline creatinine near 1. 2. Hyperkalemia secondary to acute kidney injury, metabolic acidosis, lisinopril and spironolactone. Improved with medical management. 3. Metabolic acidosis secondary to lactic acidosis, acute kidney injury and metformin. 4. Hyperphosphatemia secondary to acute kidney injury. Expect improvement post dialysis. 5. Septic shock maintained on vasopressors. UA suggestive of UTI. Coronavirus PCR negative. 6. Coronary artery disease status post stenting to the LAD in November 2020. 7. Diabetes mellitus. 8. Chronic systolic CHF with ejection fraction of 20-25%. Plan: Maintain bicarb drip at 100 mL an hour. Check renal ultrasound. Follow-up cultures. Due to oliguria, severely depressed GFR and hyperkalemia, initiate renal replacement therapy. Catheter placement pending. Plan for SLED today if able to tolerate. Monitor hemodynamics. Thank you for the consultation. I will continue to follow the patient with you during her hospital stay.
--- NOTE | 2020-12-16 12:06 | US ---
EXAMINATION TYPE: US kidneys/renal and bladder DATE OF EXAM: 12/16/2020 COMPARISON: KUB CLINICAL HISTORY: loraine. Intubated ICU patient EXAM MEASUREMENTS: Right Kidney: 11.0 x 4.9 x 4.4 cm Left Kidney: 17.5 (with cyst) x 6.0 x 7.0 cm Post Void Residual Volume: not assessed on ICU patient with Celestin Catheter Incidental Finding of Gallbladder: multiple shadowing gallstones are seen with thickened gallbladder wall. Right Kidney: No hydronephrosis or masses seen Left Kidney: large cortical cyst seen = 10.9 x 8.6 x 8.1cm Bladder: Celestin Bladder catheter is noted within patient There is no evidence for hydronephrosis at this point in time. No nephrolithiasis is seen. Cortical thinning in the right kidney. Incidental stone filled somewhat contracted gallbladder. Left kidney sh ows large exophytic thin-walled cyst or cystic lesion. No hydronephrosis. IMPRESSION: 1. No hydronephrosis seen bilaterally. 2. At least Bosniak 2F 10.9 cm exophytic thin-walled cyst or cystic lesion upper pole of the left kid te, due to size difficult to accurately characterize on ultrasound. Consider nonemergent renal tavares col contrast-enhanced CT follow-up. 3. Stone filled contracted gallbladder with suggestion of mild/moderate wall thickening.
[2020-12-16] MEDS ORDERED: INSULIN REGULAR BOLUS (FROM DRIP BAG) IV PRN (12:07)
[2020-12-16] MEDS ORDERED: INSULIN REGULAR 100 UNIT in SODIUM CHLORIDE 0.9% 100 ML IV SCH (12:15)
[2020-12-16] MEDS ORDERED: TICAGRELOR 90 MG TAB PO SCH (12:30)
[2020-12-16] MEDS ORDERED: ASPIRIN 81 MG PO SCH (12:30)
--- NOTE | 2020-12-16 12:44 | PCN ---
PROCEDURE NOTE ARTERIAL LINE PLACEMENT: Indications: Hemodynamic monitoring. PREOP DIAGNOSIS: Acute kidney injury, acute hypoxic respiratory failure. POSTOP DIAGNOSIS: Acute kidney injury, acute hypoxic respiratory failure. A time-out was completed verifying correct patient, procedure, site, positioning, and implant(s) or special equipment if applicable. Otilio's test was performed to ensure adequate perfusion. The patient's right wrist was prepped and draped in sterile fashion. 1% Lidocaine was used to anesthetize the area. An 18G Arrow arterial line was introduced into the radial artery. The catheter was threaded over the guide wire and the needle was removed with appropriate pulsatile blood return. Blood loss was minimal. The catheter was then sutured in place to the skin and a sterile dressing applied. Perfusion to the extremity distal to the point of catheter insertion was checked and found to be adequate. The patient tolerated the procedure well and there were no complications. Good waveform was noted. Line was flushed and sutured in place. Sterile dressing was applied. MMODL / IJN: [id number] /
--- NOTE | 2020-12-16 12:52 | P.GSCN ---
History of Present Illness History of present illness: 85-year-old white female, patient came with septic shock and she has been intubated. Patient has a hyperkalemia creatinine is 12.6 I was consulted for placement of urgent dialysis catheter. Patient has history of diabetes coronary artery disease acute kidney injury Neck supple no bruit appreciated patient has been intubated Chest few rhonchi at the lung bases first and second sound present Abdomen soft nontender Vascular femorals are 1+ bilateral Plan is placement of the dialysis catheter risk and complication discussed Past Medical History Past Medical History: Diabetes Mellitus Additional Past Medical History / Comment(s): pulmonary edema, cardiomyopathy, aortic stenosis History of Any Multi-Drug Resistant Organisms: None Reported Past Surgical History: No Surgical Hx Reported Past Psychological History: No Psychological Hx Reported Smoking Status: Former smoker Past Alcohol Use History: None Reported Past Drug Use History: None Reported - Past Family History Father Family Medical History: Diabetes Mellitus, Myocardial Infarction ([place]) Medications and Allergies Home Medications Medication Instructions Recorded Confirmed Type Multivitamins, Thera [Multivitamin 1 tab PO DAILY 11/13/20 12/16/20 History (formulary)] Acetaminophen Tab [Tylenol] 500 mg PO AC-TID #0 11/25/20 12/16/20 Rx Aspirin 81 mg PO DAILY chew 11/25/20 12/16/20 Rx Atorvastatin [Lipitor] 20 mg PO HS tab 11/25/20 12/16/20 Rx Famotidine [Pepcid] 20 mg PO DAILY tab 11/25/20 12/16/20 Rx Metoprolol Tartrate [Lopressor] 25 mg PO BID tab 11/25/20 12/16/20 Rx Spironolactone [Aldactone] 25 mg PO DAILY tab 11/25/20 12/16/20 Rx lisinopriL [Zestril] 2.5 mg PO DAILY tab 11/25/20 12/16/20 Rx Furosemide [Lasix] 40 mg PO BID@0900,1700 12/16/20 12/16/20 History INSULIN ASPART (NovoLOG) [NovoLOG See Protocol SQ ACHS 12/16/20 12/16/20 History (formulary)] Nitroglycerin Sl Tabs [Nitrostat] 0.4 mg SL Q5M PRN 12/16/20 12/16/20 History Pioglitazone [Actos] 45 mg PO DAILY 12/16/20 12/16/20 History Ticagrelor [Brilinta] 90 mg PO BID@0900,1700 12/16/20 12/16/20 History metFORMIN HCL 1,000 mg PO BID 12/16/20 12/16/20 History Allergies Allergy/AdvReac Type Severity Reaction Status Date / Time No Known Allergies Allergy Verified 12/16/20 06:18 Surgical - Exam Vital Signs Temp Pulse Resp BP Pulse Ox 97.5 F L 89 18 100/49 98 12/15/20 23:58 12/15/20 23:58 12/15/20 23:58 12/15/20 23:58 12/15/20 23:58 Results - Labs 12/16/20 00:09 12/16/20 06:50 Abnormal Lab Results - Last 24 Hours (Table) 12/16/20 12/16/20 12/16/20 Range/Units 00:09 00:09 00:09 RBC 3.24 L (3.80-5.40) m/uL Hgb 8.9 L (11.4-16.0) gm/dL Hct 29.0 L (34.0-46.0) % MCHC 30.9 L (31.0-37.0) g/dL RDW 19.1 H (11.5-15.5) % Lymphocytes # 0.8 L (1.0-4.8) k/uL ABG pH (7.35-7.45) ABG pCO2 (35-45) mmHg ABG pO2 (83-108) mmHg ABG HCO3 (21-25) mmol/L ABG Total CO2 (19-24) mmol/L ABG O2 Saturation (94-97) % VBG pH (7.31-7.41) VBG pCO2 (37-51) mmHg VBG HCO3 (24-28) mmol/L Potassium 7.4 H* (3.5-5.1) mmol/L Chloride (98-107) mmol/L Carbon Dioxide 9 L* (22-30) mmol/L BUN 88 H (7-17) mg/dL Creatinine 12.46 H* (0.52-1.04) mg/dL Glucose (74-99) mg/dL POC Glucose (mg/dL) (75-99) mg/dL Plasma Lactic Acid Jeremie (0.7-2.0) mmol/L Calcium (8.4-10.2) mg/dL Phosphorus 10.0 H* (2.5-4.5) mg/dL Troponin I 0.301 H* (0.000-0.034) ng/mL Urine Appearance (Clear) Urine RBC (0-5) /hpf Urine WBC (0-5) /hpf Urine WBC Clumps (None) /hpf Ur Squamous Epith Cells (0-4) /hpf Urine Bacteria (None) /hpf 12/16/20 12/16/20 12/16/20 Range/Units 00:09 01:30 01:30 RBC (3.80-5.40) m/uL Hgb (11.4-16.0) gm/dL Hct (34.0-46.0) % MCHC (31.0-37.0) g/dL RDW (11.5-15.5) % Lymphocytes # (1.0-4.8) k/uL ABG pH (7.35-7.45) ABG pCO2 (35-45) mmHg ABG pO2 (83-108) mmHg ABG HCO3 (21-25) mmol/L ABG Total CO2 (19-24) mmol/L ABG O2 Saturation (94-97) % VBG pH 7.11 L* (7.31-7.41) VBG pCO2 30 L (37-51) mmHg VBG HCO3 9 L* (24-28) mmol/L Potassium (3.5-5.1) mmol/L Chloride (98-107) mmol/L Carbon Dioxide (22-30) mmol/L BUN (7-17) mg/dL Creatinine (0.52-1.04) mg/dL Glucose (74-99) mg/dL POC Glucose (mg/dL) (75-99) mg/dL Plasma Lactic Acid Jeremie 10.2 H* (0.7-2.0) mmol/L Calcium (8.4-10.2) mg/dL Phosphorus (2.5-4.5) mg/dL Troponin I (0.000-0.034) ng/mL Urine Appearance Turbid H (Clear) Urine RBC >182 H (0-5) /hpf Urine WBC >182 H (0-5) /hpf Urine WBC Clumps Many H (None) /hpf Ur Squamous Epith Cells 22 H (0-4) /hpf Urine Bacteria Moderate H (None) /hpf 12/16/20 12/16/20 12/16/20 Range/Units 02:29 03:11 03:25 RBC (3.80-5.40) m/uL Hgb (11.4-16.0) gm/dL Hct (34.0-46.0) % MCHC (31.0-37.0) g/dL RDW (11.5-15.5) % Lymphocytes # (1.0-4.8) k/uL ABG pH (7.35-7.45) ABG pCO2 (35-45) mmHg ABG pO2 (83-108) mmHg ABG HCO3 (21-25) mmol/L ABG Total CO2 (19-24) mmol/L ABG O2 Saturation (94-97) % VBG pH (7.31-7.41) VBG pCO2 (37-51) mmHg VBG HCO3 (24-28) mmol/L Potassium 5.8 H (3.5-5.1) mmol/L Chloride (98-107) mmol/L Carbon Dioxide 7 L* (22-30) mmol/L BUN 83 H (7-17) mg/dL Creatinine 12.07 H* (0.52-1.04) mg/dL Glucose 147 H (74-99) mg/dL POC Glucose (mg/dL) 60 L 134 H (75-99) mg/dL Plasma Lactic Acid Jeremie (0.7-2.0) mmol/L Calcium 10.4 H (8.4-10.2) mg/dL Phosphorus (2.5-4.5) mg/dL Troponin I (0.000-0.034) ng/mL Urine Appearance (Clear) Urine RBC (0-5) /hpf Urine WBC (0-5) /hpf Urine WBC Clumps (None) /hpf Ur Squamous Epith Cells (0-4) /hpf Urine Bacteria (None) /hpf 12/16/20 12/16/20 12/16/20 Range/Units 04:54 05:07 06:50 RBC (3.80-5.40) m/uL Hgb (11.4-16.0) gm/dL Hct (34.0-46.0) % MCHC (31.0-37.0) g/dL RDW (11.5-15.5) % Lymphocytes # (1.0-4.8) k/uL ABG pH 7.09 L* (7.35-7.45) ABG pCO2 28 L (35-45) mmHg ABG pO2 354 H (83-108) mmHg ABG HCO3 9 L* (21-25) mmol/L ABG Total CO2 9 L (19-24) mmol/L ABG O2 Saturation 99.9 H (94-97) % VBG pH (7.31-7.41) VBG pCO2 (37-51) mmHg VBG HCO3 (24-28) mmol/L Potassium 5.5 H (3.5-5.1) mmol/L Chloride 109 H (98-107) mmol/L Carbon Dioxide 7 L* (22-30) mmol/L BUN 71 H (7-17) mg/dL Creatinine 9.65 H* (0.52-1.04) mg/dL Glucose 254 H (74-99) mg/dL POC Glucose (mg/dL) (75-99) mg/dL Plasma Lactic Acid Jeremie 14.4 H* (0.7-2.0) mmol/L Calcium 8.1 L (8.4-10.2) mg/dL Phosphorus (2.5-4.5) mg/dL Troponin I (0.000-0.034) ng/mL Urine Appearance (Clear) Urine RBC (0-5) /hpf Urine WBC (0-5) /hpf Urine WBC Clumps (None) /hpf Ur Squamous Epith Cells (0-4) /hpf Urine Bacteria (None) /hpf 12/16/20 12/16/20 12/16/20 Range/Units 08:07 09:43 09:45 RBC (3.80-5.40) m/uL Hgb (11.4-16.0) gm/dL Hct (34.0-46.0) % MCHC (31.0-37.0) g/dL RDW (11.5-15.5) % Lymphocytes # (1.0-4.8) k/uL ABG pH 7.06 L* (7.35-7.45) ABG pCO2 26 L (35-45) mmHg ABG pO2 155 H (83-108) mmHg ABG HCO3 7 L* (21-25) mmol/L ABG Total CO2 8 L (19-24) mmol/L ABG O2 Saturation 98.7 H (94-97) % VBG pH (7.31-7.41) VBG pCO2 (37-51) mmHg VBG HCO3 (24-28) mmol/L Potassium (3.5-5.1) mmol/L Chloride (98-107) mmol/L Carbon Dioxide (22-30) mmol/L BUN (7-17) mg/dL Creatinine (0.52-1.04) mg/dL Glucose (74-99) mg/dL POC Glucose (mg/dL) 237 H (75-99) mg/dL Plasma Lactic Acid Jeremie 11.7 H* (0.7-2.0) mmol/L Calcium (8.4-10.2) mg/dL Phosphorus (2.5-4.5) mg/dL Troponin I (0.000-0.034) ng/mL Urine Appearance (Clear) Urine RBC (0-5) /hpf Urine WBC (0-5) /hpf Urine WBC Clumps (None) /hpf Ur Squamous Epith Cells (0-4) /hpf Urine Bacteria (None) /hpf 12/16/20 Range/Units 10:28 RBC (3.80-5.40) m/uL Hgb (11.4-16.0) gm/dL Hct (34.0-46.0) % MCHC (31.0-37.0) g/dL RDW (11.5-15.5) % Lymphocytes # (1.0-4.8) k/uL ABG pH (7.35-7.45) ABG pCO2 (35-45) mmHg ABG pO2 (83-108) mmHg ABG HCO3 (21-25) mmol/L ABG Total CO2 (19-24) mmol/L ABG O2 Saturation (94-97) % VBG pH (7.31-7.41) VBG pCO2 (37-51) mmHg VBG HCO3 (24-28) mmol/L Potassium (3.5-5.1) mmol/L Chloride (98-107) mmol/L Carbon Dioxide (22-30) mmol/L BUN (7-17) mg/dL Creatinine (0.52-1.04) mg/dL Glucose (74-99) mg/dL POC Glucose (mg/dL) 329 H (75-99) mg/dL Plasma Lactic Acid Jeremie (0.7-2.0) mmol/L Calcium (8.4-10.2) mg/dL Phosphorus (2.5-4.5) mg/dL Troponin I (0.000-0.034) ng/mL Urine Appearance (Clear) Urine RBC (0-5) /hpf Urine WBC (0-5) /hpf Urine WBC Clumps (None) /hpf Ur Squamous Epith Cells (0-4) /hpf Urine Bacteria (None) /hpf Microbiology - Last 24 Hours (Table) 12/16/20 00:09 Urine Culture - Preliminary Urine,Catheterized Diabetes panel 12/16/20 12/16/20 12/16/20 Range/Units 00:09 03:11 06:50 Sodium 139 142 143 (137-145) mmol/L Potassium 7.4 H* 5.8 H 5.5 H (3.5-5.1) mmol/L Chloride 98 101 109 H (98-107) mmol/L Carbon Dioxide 9 L* 7 L* 7 L* (22-30) mmol/L BUN 88 H 83 H 71 H (7-17) mg/dL Creatinine 12.46 H* 12.07 H* 9.65 H* (0.52-1.04) mg/dL Glucose 94 147 H 254 H (74-99) mg/dL Calcium 9.3 10.4 H 8.1 L (8.4-10.2) mg/dL AST 32 (14-36) U/L ALT 12 (4-34) U/L Alkaline Phosphatase 68 (38-126) U/L Total Protein 6.9 (6.3-8.2) g/dL Albumin 4.2 (3.5-5.0) g/dL Calcium panel 12/16/20 12/16/20 12/16/20 Range/Units 00:09 03:11 06:50 Calcium 9.3 10.4 H 8.1 L (8.4-10.2) mg/dL Phosphorus 10.0 H* (2.5-4.5) mg/dL Albumin 4.2 (3.5-5.0) g/dL Pituitary panel 12/16/20 12/16/20 12/16/20 Range/Units 00:09 03:11 06:50 Sodium 139 142 143 (137-145) mmol/L Potassium 7.4 H* 5.8 H 5.5 H (3.5-5.1) mmol/L Chloride 98 101 109 H (98-107) mmol/L Carbon Dioxide 9 L* 7 L* 7 L* (22-30) mmol/L BUN 88 H 83 H 71 H (7-17) mg/dL Creatinine 12.46 H* 12.07 H* 9.65 H* (0.52-1.04) mg/dL Glucose 94 147 H 254 H (74-99) mg/dL Calcium 9.3 10.4 H 8.1 L (8.4-10.2) mg/dL Adrenal panel 12/16/20 12/16/20 12/16/20 Range/Units 00:09 03:11 06:50 Sodium 139 142 143 (137-145) mmol/L Potassium 7.4 H* 5.8 H 5.5 H (3.5-5.1) mmol/L Chloride 98 101 109 H (98-107) mmol/L Carbon Dioxide 9 L* 7 L* 7 L* (22-30) mmol/L BUN 88 H 83 H 71 H (7-17) mg/dL Creatinine 12.46 H* 12.07 H* 9.65 H* (0.52-1.04) mg/dL Glucose 94 147 H 254 H (74-99) mg/dL Calcium 9.3 10.4 H 8.1 L (8.4-10.2) mg/dL Total Bilirubin 0.5 (0.2-1.3) mg/dL AST 32 (14-36) U/L ALT 12 (4-34) U/L Alkaline Phosphatase 68 (38-126) U/L Total Protein 6.9 (6.3-8.2) g/dL Albumin 4.2 (3.5-5.0) g/dL
--- NOTE | 2020-12-16 12:54 | P.PCN ---
Description of Procedure: Preoperative diagnoses is acute kidney injury and hyperkalemia creatinine is 5.6 Postoperative same Procedure patient was seen in the room right groin was prepped and draped applied sterile manner ultrasound-guided micropuncture introducer right femoral vein and micropuncture guidewire passed. After that we passed a dilator on the top of guidewire through the guidewire we placed a place that dilator without any resistance and triple-lumen dialysis catheter placed on the top of guidewire flushed with heparin saline and Hep-Lock secured with 3-0 nylon and flushed with heparin saline and Hep-Lock patient are the procedure well
[2020-12-16] MEDS ORDERED: SODIUM BICARB 8.4% 50 ML SYR (1 MEQ/ML) ONE (13:11)
[2020-12-16] MEDS ORDERED: SODIUM CHLORIDE 0.9% 500 ML DEHP FREE BAG IV ONE (13:11)
[2020-12-16] MEDS ORDERED: CALCIUM CHLORIDE 100 MG/ML 10 ML SYRINGE ONE (13:11)
[2020-12-16 13:22] LABS: Glucose,Whole Blood 316 mg/dL (75-99)
--- NOTE | 2020-12-16 13:39 | P.EN ---
I responded to a CODE BLUE called my nursing staff around 1:15 PM. Apparently patient went into asystole for a brief period of time requiring one round of CPR with quick return of spontaneous circulation. Upon arrival to the room, patient was noted to be in wide complex tachycardia. She has underlying RBBB noted on 12-lead EKG on admission. Patient was admitted to the hospital acute kidney failure, severe metabolic acidosis, and hyperkalemia. At the time of my evaluation, patient was significantly hypotensive with a mean arterial pressure of 51, systolic blood pressure 72 and diastolic blood pressure of 40. Patient was maintained on a sodium bicarbonate drip at 100 mL per hour. She has received 2 L of fluid were originally in the ER and currently maintained on 2 vasopressors including high doses of norepinephrine and vasopressin. I reviewed her electronic chart and lab work results. Repeat potassium at known was 7.0. Patient received 10 units of IV insulin bolus as currently she is on insulin drip. He advised to give 1 g of calcium chloride (only formula available in the crash cart). I advised to give 500 mL normal saline bolus. I recognize that patient has underlying ischemic cardiomyopathy and most recent echocardiogram in August showed an ejection fraction of 20-25%. Patient is already intubated (secondary to altered mental status and being unable to protect airway on presentation with no evidence of pulmonary edema on chest x-ray ) and on the on minimal vent settings. She would definitely benefit from more IV fluid resuscitation. I asked to increase bicarb drip to 125 mL per hour. Patient was seen and evaluated by cardiology earlier regarding wide-complex tachycardia. Her prognosis is very guarded. Asked nursing staff to update attending physician and bowl topper about this event.
--- NOTE | 2020-12-16 13:42 | P.CRDCN ---
History of Present Illness Consult date: 12/16/20 History of present illness: This is a 84-year-old female who was recently seen for symptoms of shortness of breath and pulmonary edema and cardiomyopathy. Patient had a cardiac catheterization and had stent placement of the LAD. Patient subsequently went to [facility]. Apparently she became more short of breath and also developed altered mental status. Lab work showed severe renal failure. Patient was subsequently transferred to [facility]. She was found to be in any respiratory failure and also severely hypo-tensive. She was intubated. She is currently on epinephrine and vasopressin drips. Patient is found to have creatinine of up to 12 and also highly potassium. She was treated conservatively with bicarbonate, calcium gluconate and sugar with improvement of her renal function and also potassium levels. She is also on bicarb drip. She developed wide complex cardiac rhythm which appears to be regular. It's described as junctional tachycardia. Difficult to assess underlying atrial rhythm. She was on aspirin and related to along with Lipitor. See was seen by vascular surgeon animal warden and also forensic medical examiner. She is going to get dialysis. Chest x-ray showed bilateral effusion and cardiomegaly. She has no urinary output. We'll continue current management for hemodynamic support and also respiratory support. Continue the dialysis. Her proBNP is a highly elevated. We'll may get a repeat echocardiogram. No acute cardiac intervention at this time. Apparently she was also on metformin. The possibility of underlying sepsis is being considered. Blood cultures are being done and empiric antibiotic coverage to be provided. Prognosis is poor Review of Systems As per the chart Past Medical History Past Medical History: Diabetes Mellitus Additional Past Medical History / Comment(s): pulmonary edema, cardiomyopathy, aortic stenosis History of Any Multi-Drug Resistant Organisms: None Reported Past Surgical History: No Surgical Hx Reported Past Psychological History: No Psychological Hx Reported Smoking Status: Former smoker Past Alcohol Use History: None Reported Past Drug Use History: None Reported - Past Family History Father Family Medical History: Diabetes Mellitus, Myocardial Infarction (MD) Medications and Allergies Home Medications Medication Instructions Recorded Confirmed Type Multivitamins, Thera [Multivitamin 1 tab PO DAILY 11/13/20 12/16/20 History (formulary)] Acetaminophen Tab [Tylenol] 500 mg PO AC-TID #0 11/25/20 12/16/20 Rx Aspirin 81 mg PO DAILY chew 11/25/20 12/16/20 Rx Atorvastatin [Lipitor] 20 mg PO HS tab 11/25/20 12/16/20 Rx Famotidine [Pepcid] 20 mg PO DAILY tab 11/25/20 12/16/20 Rx Metoprolol Tartrate [Lopressor] 25 mg PO BID tab 11/25/20 12/16/20 Rx Spironolactone [Aldactone] 25 mg PO DAILY tab 11/25/20 12/16/20 Rx lisinopriL [Zestril] 2.5 mg PO DAILY tab 11/25/20 12/16/20 Rx Furosemide [Lasix] 40 mg PO BID@0900,1700 12/16/20 12/16/20 History INSULIN ASPART (NovoLOG) [NovoLOG See Protocol SQ ACHS 12/16/20 12/16/20 History (formulary)] Nitroglycerin Sl Tabs [Nitrostat] 0.4 mg SL Q5M PRN 12/16/20 12/16/20 History Pioglitazone [Actos] 45 mg PO DAILY 12/16/20 12/16/20 History Ticagrelor [Brilinta] 90 mg PO BID@0900,1700 12/16/20 12/16/20 History metFORMIN HCL 1,000 mg PO BID 12/16/20 12/16/20 History Allergies Allergy/AdvReac Type Severity Reaction Status Date / Time No Known Allergies Allergy Verified 12/16/20 06:18 Physical Exam Vitals: Vital Signs Temp Pulse Pulse Resp BP BP Pulse Ox 12/16/20 11:30 118 H 24 98 12/16/20 11:15 121 H 24 96 12/16/20 11:00 117 H 24 97 12/16/20 10:45 126 H 24 97 12/16/20 10:30 123 H 24 96 12/16/20 10:15 122 H 24 96 12/16/20 10:00 115 H 24 81/55 96 12/16/20 09:45 113 H 24 97 12/16/20 09:30 111 H 24 89/42 97 12/16/20 09:15 108 H 24 90/47 99 12/16/20 09:00 115 H 24 90/47 99 12/16/20 08:45 113 H 16 97/48 99 12/16/20 08:30 119 H 16 96/46 98 12/16/20 08:15 98.5 F 119 H 16 90/54 98 12/16/20 07:45 113 H 14 120/55 100 12/16/20 07:30 121 H 24 134/59 100 12/16/20 07:15 122 H 22 125/58 100 12/16/20 07:00 117 H 24 133/63 100 12/16/20 06:45 118 H 24 121/55 100 12/16/20 06:30 105 H 25 H 133/67 99 12/16/20 06:15 120 H 20 138/57 99 12/16/20 06:00 116 H 20 87/63 100 12/16/20 05:45 108 H 29 H 124/52 100 12/16/20 05:30 105 H 25 H 115/56 100 12/16/20 05:15 114 H 24 80/38 99 12/16/20 05:00 112 H 30 H 123/88 100 12/16/20 04:45 115 H 31 H 115/52 100 12/16/20 04:30 87 28 H 65/38 98 12/16/20 04:22 79 23 65/38 99 12/16/20 04:15 95 24 67/39 100 12/16/20 04:00 97 30 H 63/33 97 12/16/20 03:45 98 22 72/36 98 12/16/20 03:44 98 26 H 72/36 97 12/16/20 03:30 92 30 H 115/56 96 12/16/20 03:15 100 28 H 82/47 98 12/16/20 03:00 99 29 H 76/43 96 12/16/20 02:48 101 H 32 H 76/43 92 L 12/16/20 02:45 110 H 27 H 78/61 94 L 12/16/20 02:30 98 30 H 71/42 97 12/16/20 02:11 97 22 84/43 12/16/20 02:00 88/45 12/16/20 01:58 88 12/16/20 01:54 93 25 H 100/41 99 12/16/20 01:48 91 12/16/20 01:30 60/41 12/16/20 01:17 98/43 12/16/20 00:54 97 18 90/49 91 L 12/15/20 23:58 97.5 F L 89 18 100/49 98 Intake and Output 12/15/20 12/16/20 12/16/20 22:59 06:59 14:59 Intake Total 43.438 195.602 Output Total 0 Balance 43.438 195.602 Intake: Intake, IV Titration 43.438 195.602 Amount Midazolam HCl 50 mg In 5.400 15.775 Sodium Chloride 0.9% 40 ml @ 1 MG/HR 1 mls/hr IV .Q24H FELICIA Rx#:[id number] Norepinephrine 32 mg In 26.281 86.632 Sodium Chloride 0.9% 218 ml @ 0.05 MCG/KG/MIN 2. 551 mls/hr IV .Q24H FELICIA Rx#:[id number] fentaNYL (PF). 1,000 mcg 11.757 88.243 In Sodium Chloride 0.9% 80 ml @ Per Protocol IV . Q0M FELICIA Rx#:[id number] propofoL 1,000 mg In 4.952 Empty Bag 1 bag @ Titrate IV .Q0M FELICIA Rx#: [id number] Output: Urine 0 Other: Weight 108.862 kg ABP, PAP, CO, CI - Last 8 Hours Arterial Blood Pressure 89/40 Arterial Blood Pressure 93/40 Arterial Blood Pressure 95/41 Arterial Blood Pressure 86/40 Arterial Blood Pressure 83/42 Arterial Blood Pressure 78/36 Arterial Blood Pressure 82/34 Arterial Blood Pressure 101/35 Arterial Blood Pressure 68/43 GENERAL EXAM: Patient is debated and sedated HEENT: Normocephalic. Pupils are small NECK: No masses, no nuchal rigidity. CHEST: No chest wall deformity. LUNGS: Diminished air exchange HEART: [S1 and S2 normal with a stent. The heart sounds ABDOMEN: Soft SKIN: No rashes CENTRAL NERVOUS SYSTEM: Not done EXTREMITIES: No significant edema Results 12/16/20 00:09 12/16/20 12:17 Cardiac Enzymes 12/16/20 12/16/20 Range/Units 00:09 00:09 AST 32 (14-36) U/L Troponin I 0.301 H* (0.000-0.034) ng/mL Coagulation 12/16/20 Range/Units 09:45 PT 11.4 (9.0-12.0) sec APTT 24.6 (22.0-30.0) sec CBC 12/16/20 Range/Units 00:09 WBC 6.6 (3.8-10.6) k/uL RBC 3.24 L (3.80-5.40) m/uL Hgb 8.9 L (11.4-16.0) gm/dL Hct 29.0 L (34.0-46.0) % Plt Count 323 (150-450) k/uL Comprehensive Metabolic Panel 12/16/20 12/16/20 12/16/20 Range/Units 00:09 03:11 06:50 Sodium 139 142 143 (137-145) mmol/L Potassium 7.4 H* 5.8 H 5.5 H (3.5-5.1) mmol/L Chloride 98 101 109 H (98-107) mmol/L Carbon Dioxide 9 L* 7 L* 7 L* (22-30) mmol/L BUN 88 H 83 H 71 H (7-17) mg/dL Creatinine 12.46 H* 12.07 H* 9.65 H* (0.52-1.04) mg/dL Glucose 94 147 H 254 H (74-99) mg/dL Calcium 9.3 10.4 H 8.1 L (8.4-10.2) mg/dL AST 32 (14-36) U/L ALT 12 (4-34) U/L Alkaline Phosphatase 68 (38-126) U/L Total Protein 6.9 (6.3-8.2) g/dL Albumin 4.2 (3.5-5.0) g/dL 12/16/20 Range/Units 12:17 Sodium (137-145) mmol/L Potassium 7.0 H* (3.5-5.1) mmol/L Chloride (98-107) mmol/L Carbon Dioxide (22-30) mmol/L BUN (7-17) mg/dL Creatinine (0.52-1.04) mg/dL Glucose (74-99) mg/dL Calcium (8.4-10.2) mg/dL AST (14-36) U/L ALT (4-34) U/L Alkaline Phosphatase (38-126) U/L Total Protein (6.3-8.2) g/dL Albumin (3.5-5.0) g/dL Current Medications Generic Name Dose Route Start Last Admin Trade Name Freq PRN Reason Stop Dose Admin Albuterol/Ipratropium 3 ml 12/16/20 01:23 Ipratropium-Albuterol 3 Ml Neb INHALATION RT-Q4H PRN Shortness Of Breath Or Wheezing Aspirin 81 mg 12/16/20 12:30 Aspirin 81 Mg PO DAILY FELICIA Atorvastatin Calcium 20 mg 12/16/20 21:00 Atorvastatin 20 Mg Tab PO HS FELICIA Chlorhexidine Gluconate 15 ml 12/16/20 09:00 12/16/20 10:34 Chlorhexidine Gluconate 15 Ml Cup MUCOUS MEM 15 ml BID FELICIA Administration Enoxaparin Sodium 40 mg 12/16/20 09:00 12/16/20 10:34 Enoxaparin 40 Mg/0.4 Ml Syringe SQ 40 mg DAILY FELICIA Administration Ceftriaxone Sodium 1 gm/ 50 mls @ 100 mls/hr 12/16/20 09:00 12/16/20 09:52 Sodium Chloride IVPB 100 mls/hr Q12HR FELICIA Administration Dextrose/Sodium Chloride 1,000 mls @ 90 mls/hr 12/16/20 01:30 12/16/20 02:23 Dextrose 5%-Ns Iv Soln IV 90 mls/hr .Q11H7M FELICIA Administration Norepinephrine Bitartrate 32 250 mls @ 2.551 mls/hr 12/16/20 04:15 12/16/20 10:45 mg/ Sodium Chloride IV 0.56 mcg/kg/min .Q24H FELICIA 28.576 mls/hr Titration Protocol 0.05 MCG/KG/MIN Fentanyl Citrate 1,000 mcg/ 100 mls @ 0 mls/hr 12/16/20 04:30 12/16/20 10:20 Sodium Chloride IV 0.5 mcg/kg/min .Q0M FELICIA 326.586 mls/hr Administration Protocol Per Protocol Sodium Bicarbonate 150 ml/ 1,150 mls @ 100 mls/hr 12/16/20 05:00 12/16/20 05:32 Dextrose/Water IV 100 mls/hr .[id number] FELICIA Administration Propofol 1,000 mg/ IV Solution 100 mls @ 0 mls/hr 12/16/20 07:45 12/16/20 09:01 IV 25 mcg/kg/min .Q0M FELICIA 16.329 mls/hr Titration Protocol Titrate Vasopressin 60 unit/ Sodium 153 mls @ 4.59 mls/hr 12/16/20 09:45 12/16/20 10:15 Chloride IV 4.59 mls/hr .Q24H FELICIA Administration 0.03 UNITS/MIN Insulin Human Regular 100 unit 101 mls @ 0 mls/hr 12/16/20 12:15 12/16/20 12:37 / Sodium Chloride IV 11 unit/hr .Q0M FELICIA 11.11 mls/hr Administration Protocol Per Protocol Lorazepam 1 mg 12/16/20 02:21 12/16/20 05:57 Lorazepam 2 Mg/Ml Inj IV 1 mg Q4HR PRN Administration Anxiety Naloxone HCl 0.2 mg 12/16/20 01:23 Naloxone 0.4 Mg/Ml 1 Ml Vial IV Q2M PRN Opioid Reversal Ondansetron HCl 4 mg 12/16/20 02:21 Ondansetron 4 Mg/2 Ml Vial IVP Q6HR PRN Nausea And Vomiting Pantoprazole Sodium 40 mg 12/16/20 09:00 12/16/20 10:35 Pantoprazole 40 Mg/10 Ml Vial IV 40 mg DAILY FELICIA Administration Ticagrelor 90 mg 12/16/20 12:30 Ticagrelor 90 Mg Tab PO BID FELICIA Intake and Output 12/15/20 12/16/20 12/16/20 22:59 06:59 14:59 Intake Total 43.438 195.602 Output Total 0 Balance 43.438 195.602 Intake: Intake, IV Titration 43.438 195.602 Amount Midazolam HCl 50 mg In 5.400 15.775 Sodium Chloride 0.9% 40 ml @ 1 MG/HR 1 mls/hr IV .Q24H FELICIA Rx#:[id number] Norepinephrine 32 mg In 26.281 86.632 Sodium Chloride 0.9% 218 ml @ 0.05 MCG/KG/MIN 2. 551 mls/hr IV .Q24H FELICIA Rx#:[id number] fentaNYL (PF). 1,000 mcg 11.757 88.243 In Sodium Chloride 0.9% 80 ml @ Per Protocol IV . Q0M FELICIA Rx#:[id number] propofoL 1,000 mg In 4.952 Empty Bag 1 bag @ Titrate IV .Q0M FELICIA Rx#: [id number] Output: Urine 0 Other: Weight 108.862 kg 12/16/20 00:09 12/16/20 12:17 EKG Interpretations (text) Wide-complex tachycardia. Rate about 110. Could be junctional rhythm, and junctional tachycardia underlying atrial fibrillation/flutter cannot be excluded Assessment and Plan (1) Acute renal failure Current Visit: Yes Status: Acute Code(s): N17.9 - ACUTE KIDNEY FAILURE, UNSPECIFIED SNOMED Code(s): 56942308 (2) Septic shock Current Visit: Yes Status: Acute Code(s): A41.9 - SEPSIS, UNSPECIFIED ORGANISM; R65.21 - SEVERE SEPSIS WITH SEPTIC SHOCK SNOMED Code(s): 51339726 (3) Acute respiratory failure Current Visit: Yes Status: Acute Code(s): J96.00 - ACUTE RESPIRATORY FAILURE, UNSP W HYPOXIA OR HYPERCAPNIA SNOMED Code(s): 86909727 (4) Dilated cardiomyopathy Current Visit: Yes Status: Acute Code(s): I42.0 - DILATED CARDIOMYOPATHY SNOMED Code(s): 117346309 (5) Acute on chronic systolic heart failure Current Visit: Yes Status: Acute Code(s): I50.23 - ACUTE ON CHRONIC SYSTOLIC (CONGESTIVE) HEART FAILURE SNOMED Code(s): 890570677 (6) CAD (coronary artery disease) Current Visit: Yes Status: Acute Code(s): I25.10 - ATHSCL HEART DISEASE OF [place] CORONARY ARTERY W/O ANG PCTRS SNOMED Code(s): 93333519 Plan: Continue with the hemodynamic and respiratory support. Hemodialysis as tolerated. Continue with aspirin with Brillinta and Lipitor. Hold lisinopril and Aldactone. Further recommendations depend upon the clinical course. Workup for possible sepsis
[2020-12-16] MEDS ORDERED: CALCIUM GLUCONATE 1 GM in SODIUM CHLORIDE 0.9% 100 ML IVPB ONE (14:14)
[2020-12-16 18:27] VITALS: BP 77/28; PULSE 0; RESP 0; TEMP 98.3
[2020-12-16 18:51] LABS: Hepatitis B Surface AB- Quant 3.5 mIU/mL; Hepatitis B Surface Antibody Non-Reactive (Non-Reactive); Hepatitis B Surface Antigen Non-Reactive (Non-Reactive)
[2020-12-16] MEDS ORDERED: ATORVASTATIN 20 MG TAB PO SCH (21:00)
[2020-12-17] MEDS ORDERED: ENOXAPARIN 30 MG/0.3 ML SYRINGE SQ SCH (09:00)
--- NOTE | 2020-12-17 23:10 | P.HPIM ---
History of Present Illness H&P Date: 12/16/20 Chief Complaint: Altered mental status changes Ms. Turner is an 85-year-old female with a past medical history of diabetes mellitus, severe cardiomyopathy with ejection fraction of 15%, aortic stenosis transferred from the correction secondary to altered mental status changes. Patient was found to be poorly responding, so was brought in to the hospital for further evaluation. In the ER, as the patient was unable to protect her airway because of her mental status changes she was intubated. I saw her in the ICU. She is on mechanical ventilation, receiving pressor support. Patient's labs at the time of admission showed a creatinine of 12.07. Patient's baseline creatinine is around 1. Her urine analysis was positive for moderate bacteria and WBC clumps. She was started on bicarbonate drip. Dr. Mejia vascular surgery, placed the dialysis catheter for initiation of dialysis. In the ER at the time of admission patient's temperature 97.5, heart rate 89, respiratory rate 18, blood pressure 100 x 49, saturating at 91% on room air. On complete review of course labs white count of 6.6, hemoglobin 8.9, platelets 232. Sodium 142, potassium 5.8, chloride 101, bicarb 7, BUN 83, creatinine 12.07 plasma lactic acid is 10.2 and troponin 0 0.301. Urine analysis is positive for that pedia and clumps of WBC. Coronavirus PCR is negative. On reviewing the past records patient was admitted in the hospital 30 last month on 11/13/2020 and discharged home for 11/25/2020. She was treated for a left lower lobe pneumonia, UTI and new onset systolic congestive heart failure along with NSTEMI. Patient had cardiac catheterization and stenting of the LAD. Patient was later discharged to correction. Review of Systems ROS unobtainable: due to endotracheal tube Past Medical History Past Medical History: Diabetes Mellitus Additional Past Medical History / Comment(s): pulmonary edema, cardiomyopathy, aortic stenosis History of Any Multi-Drug Resistant Organisms: None Reported Past Surgical History: No Surgical Hx Reported Past Psychological History: No Psychological Hx Reported Smoking Status: Former smoker Past Alcohol Use History: None Reported Past Drug Use History: None Reported - Past Family History Father Family Medical History: Diabetes Mellitus, Myocardial Infarction ([place]) Medications and Allergies Home Medications Medication Instructions Recorded Confirmed Type Multivitamins, Thera [Multivitamin 1 tab PO DAILY 11/13/20 12/16/20 History (formulary)] Acetaminophen Tab [Tylenol] 500 mg PO AC-TID #0 11/25/20 12/16/20 Rx Aspirin 81 mg PO DAILY chew 11/25/20 12/16/20 Rx Atorvastatin [Lipitor] 20 mg PO HS tab 11/25/20 12/16/20 Rx Famotidine [Pepcid] 20 mg PO DAILY tab 11/25/20 12/16/20 Rx Metoprolol Tartrate [Lopressor] 25 mg PO BID tab 11/25/20 12/16/20 Rx Spironolactone [Aldactone] 25 mg PO DAILY tab 11/25/20 12/16/20 Rx lisinopriL [Zestril] 2.5 mg PO DAILY tab 11/25/20 12/16/20 Rx Furosemide [Lasix] 40 mg PO BID@0900,1700 12/16/20 12/16/20 History INSULIN ASPART (NovoLOG) [NovoLOG See Protocol SQ ACHS 12/16/20 12/16/20 History (formulary)] Nitroglycerin Sl Tabs [Nitrostat] 0.4 mg SL Q5M PRN 12/16/20 12/16/20 History Pioglitazone [Actos] 45 mg PO DAILY 12/16/20 12/16/20 History Ticagrelor [Brilinta] 90 mg PO BID@0900,1700 12/16/20 12/16/20 History metFORMIN HCL 1,000 mg PO BID 12/16/20 12/16/20 History Allergies Allergy/AdvReac Type Severity Reaction Status Date / Time No Known Allergies Allergy Verified 12/16/20 06:18 Physical Exam Vitals: Vital Signs Temp Pulse Pulse Resp BP BP Pulse Ox 12/16/20 11:30 118 H 24 98 12/16/20 11:15 121 H 24 96 12/16/20 11:00 117 H 24 97 12/16/20 10:45 126 H 24 97 12/16/20 10:30 123 H 24 96 12/16/20 10:15 122 H 24 96 12/16/20 10:00 115 H 24 81/55 96 12/16/20 09:45 113 H 24 97 12/16/20 09:30 111 H 24 89/42 97 12/16/20 09:15 108 H 24 90/47 99 12/16/20 09:00 115 H 24 90/47 99 12/16/20 08:45 113 H 16 97/48 99 12/16/20 08:30 119 H 16 96/46 98 12/16/20 08:15 98.5 F 119 H 16 90/54 98 12/16/20 07:45 113 H 14 120/55 100 12/16/20 07:30 121 H 24 134/59 100 12/16/20 07:15 122 H 22 125/58 100 12/16/20 07:00 117 H 24 133/63 100 12/16/20 06:45 118 H 24 121/55 100 12/16/20 06:30 105 H 25 H 133/67 99 12/16/20 06:15 120 H 20 138/57 99 12/16/20 06:00 116 H 20 87/63 100 12/16/20 05:45 108 H 29 H 124/52 100 12/16/20 05:30 105 H 25 H 115/56 100 12/16/20 05:15 114 H 24 80/38 99 12/16/20 05:00 112 H 30 H 123/88 100 12/16/20 04:45 115 H 31 H 115/52 100 12/16/20 04:30 87 28 H 65/38 98 12/16/20 04:22 79 23 65/38 99 12/16/20 04:15 95 24 67/39 100 12/16/20 04:00 97 30 H 63/33 97 12/16/20 03:45 98 22 72/36 98 12/16/20 03:44 98 26 H 72/36 97 12/16/20 03:30 92 30 H 115/56 96 12/16/20 03:15 100 28 H 82/47 98 12/16/20 03:00 99 29 H 76/43 96 12/16/20 02:48 101 H 32 H 76/43 92 L 12/16/20 02:45 110 H 27 H 78/61 94 L 12/16/20 02:30 98 30 H 71/42 97 12/16/20 02:11 97 22 84/43 12/16/20 02:00 88/45 12/16/20 01:58 88 12/16/20 01:54 93 25 H 100/41 99 12/16/20 01:48 91 12/16/20 01:30 60/41 12/16/20 01:17 98/43 12/16/20 00:54 97 18 90/49 91 L 12/15/20 23:58 97.5 F L 89 18 100/49 98 Intake and Output 12/15/20 12/16/20 12/16/20 22:59 06:59 14:59 Intake Total 43.438 195.602 Output Total 0 Balance 43.438 195.602 Intake: Intake, IV Titration 43.438 195.602 Amount Midazolam HCl 50 mg In 5.400 15.775 Sodium Chloride 0.9% 40 ml @ 1 MG/HR 1 mls/hr IV .Q24H FELICIA Rx#:[id number] Norepinephrine 32 mg In 26.281 86.632 Sodium Chloride 0.9% 218 ml @ 0.05 MCG/KG/MIN 2. 551 mls/hr IV .Q24H FELICIA Rx#:[id number] fentaNYL (PF). 1,000 mcg 11.757 88.243 In Sodium Chloride 0.9% 80 ml @ Per Protocol IV . Q0M FELICIA Rx#:[id number] propofoL 1,000 mg In 4.952 Empty Bag 1 bag @ Titrate IV .Q0M FELICIA Rx#: [id number] Output: Urine 0 Other: Weight 108.862 kg ABP, PAP, CO, CI - Last 8 Hours Arterial Blood Pressure 89/40 Arterial Blood Pressure 93/40 Arterial Blood Pressure 95/41 Arterial Blood Pressure 86/40 Arterial Blood Pressure 83/42 Arterial Blood Pressure 78/36 Arterial Blood Pressure 82/34 Arterial Blood Pressure 101/35 Arterial Blood Pressure 68/43 Physical examination: GENERAL: Intubated and mechanically ventilated. EYES: Pupils equal. Conjunctiva normal. HEENT: oral cavity dry NECK: no masses not palpable. HEART: First and second heart sounds are normal; LUNGS: breath sounds decreased the lower lung bases ABDOMEN: Soft, nontender, normal bowel sounds MUSCULAR skeletal: Evidence of OA NEUROLOGICAL: intubated Results CBC & Chem 7: 12/16/20 00:09 12/16/20 12:17 Labs: Abnormal Lab Results - Last 24 Hours (Table) 12/16/20 12/16/20 12/16/20 Range/Units 00:09 00:09 00:09 RBC 3.24 L (3.80-5.40) m/uL Hgb 8.9 L (11.4-16.0) gm/dL Hct 29.0 L (34.0-46.0) % MCHC 30.9 L (31.0-37.0) g/dL RDW 19.1 H (11.5-15.5) % Lymphocytes # 0.8 L (1.0-4.8) k/uL ABG pH (7.35-7.45) ABG pCO2 (35-45) mmHg ABG pO2 (83-108) mmHg ABG HCO3 (21-25) mmol/L ABG Total CO2 (19-24) mmol/L ABG O2 Saturation (94-97) % VBG pH (7.31-7.41) VBG pCO2 (37-51) mmHg VBG HCO3 (24-28) mmol/L Potassium 7.4 H* (3.5-5.1) mmol/L Chloride (98-107) mmol/L Carbon Dioxide 9 L* (22-30) mmol/L BUN 88 H (7-17) mg/dL Creatinine 12.46 H* (0.52-1.04) mg/dL Glucose (74-99) mg/dL POC Glucose (mg/dL) (75-99) mg/dL Plasma Lactic Acid Jeremie (0.7-2.0) mmol/L Calcium (8.4-10.2) mg/dL Phosphorus 10.0 H* (2.5-4.5) mg/dL Troponin I 0.301 H* (0.000-0.034) ng/mL Urine Appearance (Clear) Urine RBC (0-5) /hpf Urine WBC (0-5) /hpf Urine WBC Clumps (None) /hpf Ur Squamous Epith Cells (0-4) /hpf Urine Bacteria (None) /hpf 12/16/20 12/16/20 12/16/20 Range/Units 00:09 01:30 01:30 RBC (3.80-5.40) m/uL Hgb (11.4-16.0) gm/dL Hct (34.0-46.0) % MCHC (31.0-37.0) g/dL RDW (11.5-15.5) % Lymphocytes # (1.0-4.8) k/uL ABG pH (7.35-7.45) ABG pCO2 (35-45) mmHg ABG pO2 (83-108) mmHg ABG HCO3 (21-25) mmol/L ABG Total CO2 (19-24) mmol/L ABG O2 Saturation (94-97) % VBG pH 7.11 L* (7.31-7.41) VBG pCO2 30 L (37-51) mmHg VBG HCO3 9 L* (24-28) mmol/L Potassium (3.5-5.1) mmol/L Chloride (98-107) mmol/L Carbon Dioxide (22-30) mmol/L BUN (7-17) mg/dL Creatinine (0.52-1.04) mg/dL Glucose (74-99) mg/dL POC Glucose (mg/dL) (75-99) mg/dL Plasma Lactic Acid Jeremie 10.2 H* (0.7-2.0) mmol/L Calcium (8.4-10.2) mg/dL Phosphorus (2.5-4.5) mg/dL Troponin I (0.000-0.034) ng/mL Urine Appearance Turbid H (Clear) Urine RBC >182 H (0-5) /hpf Urine WBC >182 H (0-5) /hpf Urine WBC Clumps Many H (None) /hpf Ur Squamous Epith Cells 22 H (0-4) /hpf Urine Bacteria Moderate H (None) /hpf 12/16/20 12/16/20 12/16/20 Range/Units 02:29 03:11 03:25 RBC (3.80-5.40) m/uL Hgb (11.4-16.0) gm/dL Hct (34.0-46.0) % MCHC (31.0-37.0) g/dL RDW (11.5-15.5) % Lymphocytes # (1.0-4.8) k/uL ABG pH (7.35-7.45) ABG pCO2 (35-45) mmHg ABG pO2 (83-108) mmHg ABG HCO3 (21-25) mmol/L ABG Total CO2 (19-24) mmol/L ABG O2 Saturation (94-97) % VBG pH (7.31-7.41) VBG pCO2 (37-51) mmHg VBG HCO3 (24-28) mmol/L Potassium 5.8 H (3.5-5.1) mmol/L Chloride (98-107) mmol/L Carbon Dioxide 7 L* (22-30) mmol/L BUN 83 H (7-17) mg/dL Creatinine 12.07 H* (0.52-1.04) mg/dL Glucose 147 H (74-99) mg/dL POC Glucose (mg/dL) 60 L 134 H (75-99) mg/dL Plasma Lactic Acid Jeremie (0.7-2.0) mmol/L Calcium 10.4 H (8.4-10.2) mg/dL Phosphorus (2.5-4.5) mg/dL Troponin I (0.000-0.034) ng/mL Urine Appearance (Clear) Urine RBC (0-5) /hpf Urine WBC (0-5) /hpf Urine WBC Clumps (None) /hpf Ur Squamous Epith Cells (0-4) /hpf Urine Bacteria (None) /hpf 12/16/20 12/16/20 12/16/20 Range/Units 04:54 05:07 06:50 RBC (3.80-5.40) m/uL Hgb (11.4-16.0) gm/dL Hct (34.0-46.0) % MCHC (31.0-37.0) g/dL RDW (11.5-15.5) % Lymphocytes # (1.0-4.8) k/uL ABG pH 7.09 L* (7.35-7.45) ABG pCO2 28 L (35-45) mmHg ABG pO2 354 H (83-108) mmHg ABG HCO3 9 L* (21-25) mmol/L ABG Total CO2 9 L (19-24) mmol/L ABG O2 Saturation 99.9 H (94-97) % VBG pH (7.31-7.41) VBG pCO2 (37-51) mmHg VBG HCO3 (24-28) mmol/L Potassium 5.5 H (3.5-5.1) mmol/L Chloride 109 H (98-107) mmol/L Carbon Dioxide 7 L* (22-30) mmol/L BUN 71 H (7-17) mg/dL Creatinine 9.65 H* (0.52-1.04) mg/dL Glucose 254 H (74-99) mg/dL POC Glucose (mg/dL) (75-99) mg/dL Plasma Lactic Acid Jeremie 14.4 H* (0.7-2.0) mmol/L Calcium 8.1 L (8.4-10.2) mg/dL Phosphorus (2.5-4.5) mg/dL Troponin I (0.000-0.034) ng/mL Urine Appearance (Clear) Urine RBC (0-5) /hpf Urine WBC (0-5) /hpf Urine WBC Clumps (None) /hpf Ur Squamous Epith Cells (0-4) /hpf Urine Bacteria (None) /hpf 12/16/20 12/16/20 12/16/20 Range/Units 08:07 09:43 09:45 RBC (3.80-5.40) m/uL Hgb (11.4-16.0) gm/dL Hct (34.0-46.0) % MCHC (31.0-37.0) g/dL RDW (11.5-15.5) % Lymphocytes # (1.0-4.8) k/uL ABG pH 7.06 L* (7.35-7.45) ABG pCO2 26 L (35-45) mmHg ABG pO2 155 H (83-108) mmHg ABG HCO3 7 L* (21-25) mmol/L ABG Total CO2 8 L (19-24) mmol/L ABG O2 Saturation 98.7 H (94-97) % VBG pH (7.31-7.41) VBG pCO2 (37-51) mmHg VBG HCO3 (24-28) mmol/L Potassium (3.5-5.1) mmol/L Chloride (98-107) mmol/L Carbon Dioxide (22-30) mmol/L BUN (7-17) mg/dL Creatinine (0.52-1.04) mg/dL Glucose (74-99) mg/dL POC Glucose (mg/dL) 237 H (75-99) mg/dL Plasma Lactic Acid Jeremie 11.7 H* (0.7-2.0) mmol/L Calcium (8.4-10.2) mg/dL Phosphorus (2.5-4.5) mg/dL Troponin I (0.000-0.034) ng/mL Urine Appearance (Clear) Urine RBC (0-5) /hpf Urine WBC (0-5) /hpf Urine WBC Clumps (None) /hpf Ur Squamous Epith Cells (0-4) /hpf Urine Bacteria (None) /hpf 12/16/20 Range/Units 10:28 RBC (3.80-5.40) m/uL Hgb (11.4-16.0) gm/dL Hct (34.0-46.0) % MCHC (31.0-37.0) g/dL RDW (11.5-15.5) % Lymphocytes # (1.0-4.8) k/uL ABG pH (7.35-7.45) ABG pCO2 (35-45) mmHg ABG pO2 (83-108) mmHg ABG HCO3 (21-25) mmol/L ABG Total CO2 (19-24) mmol/L ABG O2 Saturation (94-97) % VBG pH (7.31-7.41) VBG pCO2 (37-51) mmHg VBG HCO3 (24-28) mmol/L Potassium (3.5-5.1) mmol/L Chloride (98-107) mmol/L Carbon Dioxide (22-30) mmol/L BUN (7-17) mg/dL Creatinine (0.52-1.04) mg/dL Glucose (74-99) mg/dL POC Glucose (mg/dL) 329 H (75-99) mg/dL Plasma Lactic Acid Jeremie (0.7-2.0) mmol/L Calcium (8.4-10.2) mg/dL Phosphorus (2.5-4.5) mg/dL Troponin I (0.000-0.034) ng/mL Urine Appearance (Clear) Urine RBC (0-5) /hpf Urine WBC (0-5) /hpf Urine WBC Clumps (None) /hpf Ur Squamous Epith Cells (0-4) /hpf Urine Bacteria (None) /hpf Microbiology - Last 24 Hours (Table) 12/16/20 00:09 Urine Culture - Preliminary Urine,Catheterized Assessment and Plan Assessment: ASSESSMENT Acute hypoxic respiratory failure status post intubation and mechanical ventilation Severe anion gap metabolic acidosis Shock -possible sepsis Severe lactic acidosis Acute kidney injury Hyperkalemia Hyperphosphatemia Dilated cardiomyopathy with ejection fraction of 15% Coronary artery disease status post stenting of LAD done last month Diabetes mellitus Possible UTI Plan: Continue with mechanical ventilation and pressor support. Patient has severe anion gap metabolic acidosis due to acute kidney injury. She is on bicarbonate drip. Patient is requiring pressor support. Nephrology on board and planning for dialysis, Dr. Mejia placed the dialysis catheter. Blood cultures and urine culture pending. Overall prognosis is very poor. Trying to contact family to inform them about the patient's status. Further recommendations depending on the progress of the patient.
--- NOTE | 2020-12-17 23:19 | P.DS ---
Providers Date of admission: 12/16/20 01:27 Expected date of discharge: 12/17/20 Attending physician: Ruy Del Cid Consults: 12/16/20 01:23 Consult Physician Routine Consulting Provider: Louie Mejía Consult Reason/Comments: icu Do you want consulting provider notified?: Yes Consult Physician Routine Consulting Provider: Patti Tony Consult Reason/Comments: HD Do you want consulting provider notified?: Yes Consult Physician Urgent Consulting Provider: Nickolas Lund Consult Reason/Comments: chf Do you want consulting provider notified?: Yes 12/16/20 09:49 Consult Physician Urgent Consulting Provider: Esau Mejia Consult Reason/Comments: hemodialysis catheter Do you want consulting provider notified?: Yes Primary care physician: [facility] Hospital Course: Ms. Turner is an 85-year-old female with a past medical history of diabetes mellitus, severe cardiomyopathy with ejection fraction of 15%, aortic stenosis transferred [facility] the [facility] secondary to altered mental status changes. Patient was found to be poorly responding, so was brought in to the hospital for further evaluation. In the ER, as the patient was unable to protect her airway because of her mental status changes she was intubated. I saw her in the ICU. She is on mechanical ventilation, receiving pressor support. Patient's labs at the time of admission showed a creatinine of 12.07. Patient's baseline creatinine is around 1. Her urine analysis was positive for moderate bacteria and WBC clumps. She was started on bicarbonate drip. Dr. Mejia vascular surgery, placed the dialysis catheter for initiation of dialysis. On reviewing the past records patient was admitted in the hospital 30 last month on 11/13/2020 and discharged home for 11/25/2020. She was treated for a left lower lobe pneumonia, UTI and new onset systolic congestive heart failure along with NSTEMI. Patient had cardiac catheterization and stenting of the LAD. Patient was later discharged to [facility]. In the ER at the time of admission patient's temperature 97.5, heart rate 89, respiratory rate 18, blood pressure 100 x 49, saturating at 91% on room air. On complete review of course labs white count of 6.6, hemoglobin 8.9, platelets 232. Sodium 142, potassium 5.8, chloride 101, bicarb 7, BUN 83, creatinine 12.07 plasma lactic acid is 10.2 and troponin 0 0.301. Urine analysis is positive for that pedia and clumps of WBC. Coronavirus PCR is negative. Hospital Course - Continued on mechanical ventilation and pressor support. Patient has severe anion gap metabolic acidosis due to acute kidney injury. She was on bicarbonate drip. Patient was requiring pressor support. Nephrology on board and planning for dialysis, Dr. Mejia placed the dialysis catheter. Blood cultures and urine culture pending. Overall prognosis is very poor. Around 1 PM , [facility] was called and patient went into asystole requiring CPR. Later on her son DELL , he wanted to make her comfortable and would not want her to be on an elevator. So patient was changed to comfort care and eventually . DIAGNOSIS Acute hypoxic respiratory failure status post intubation and mechanical ventilation Severe anion gap metabolic acidosis Shock -possible sepsis Severe lactic acidosis Acute kidney injury Hyperkalemia Hyperphosphatemia Dilated cardiomyopathy with ejection fraction of 15% Coronary artery disease status post stenting of LAD done last month Diabetes mellitus Possible UTI Plan - Discharge Summary New Discharge Prescriptions: No Action Spironolactone [Aldactone] 25 mg PO DAILY tab Atorvastatin [Lipitor] 20 mg PO HS tab lisinopriL [Zestril] 2.5 mg PO DAILY tab Acetaminophen Tab [Tylenol] 500 mg PO AC-TID #0 Pioglitazone [Actos] 45 mg PO DAILY INSULIN ASPART (NovoLOG) [NovoLOG (formulary)] See Protocol SQ ACHS Nitroglycerin Sl Tabs [Nitrostat] 0.4 mg SL Q5M PRN PRN Reason: Chest Pain Multivitamins, Thera [Multivitamin (formulary)] 1 tab PO DAILY Aspirin 81 mg PO DAILY chew Metoprolol Tartrate [Lopressor] 25 mg PO BID tab Famotidine [Pepcid] 20 mg PO DAILY tab Furosemide [Lasix] 40 mg PO BID@0900,1700 metFORMIN HCL 1,000 mg PO BID Ticagrelor [Brilinta] 90 mg PO BID@0900,1700 Discharge Medication List Multivitamins, Thera [Multivitamin (formulary)] 1 tab PO DAILY 11/13/20 [History] Acetaminophen Tab [Tylenol] 500 mg PO AC-TID #0 11/25/20 [Rx] Aspirin 81 mg PO DAILY chew 11/25/20 [Rx] Atorvastatin [Lipitor] 20 mg PO HS tab 11/25/20 [Rx] Famotidine [Pepcid] 20 mg PO DAILY tab 11/25/20 [Rx] Metoprolol Tartrate [Lopressor] 25 mg PO BID tab 11/25/20 [Rx] Spironolactone [Aldactone] 25 mg PO DAILY tab 11/25/20 [Rx] lisinopriL [Zestril] 2.5 mg PO DAILY tab 11/25/20 [Rx] Furosemide [Lasix] 40 mg PO BID@0900,1700 12/16/20 [History] INSULIN ASPART (NovoLOG) [NovoLOG (formulary)] See Protocol SQ ACHS 12/16/20 [History] Nitroglycerin Sl Tabs [Nitrostat] 0.4 mg SL Q5M PRN 12/16/20 [History] Pioglitazone [Actos] 45 mg PO DAILY 12/16/20 [History] Ticagrelor [Brilinta] 90 mg PO BID@0900,1700 12/16/20 [History] metFORMIN HCL 1,000 mg PO BID 12/16/20 [History] Follow up Appointment(s)/Referral(s): Franklin Hinkle MD [Primary Care Provider] - 1-2 days Discharge Disposition: - Preliminary Cause of Preliminary Cause of : Anion gap Metabloic Acidosis due to Acute Kidney Injury
== END 2020-12-16 16:19 | disposition expired | DRG 871 ==
LOC: EC 23:55 → 2SICU 12-16 01:27
PROVIDERS: ADMIT Hospitalist; ATTEND Hospitalist
PROC: 0BH17EZ Insertion of Endotracheal Airway into Trachea, Via Natural or Artificial Opening (ICD-10-PCS; principal; 2020-12-16)
PROC: 5A1935Z Respiratory Ventilation, Less than 24 Consecutive Hours (ICD-10-PCS; 2020-12-16)
PROC: 03HY32Z Insertion of Monitoring Device into Upper Artery, Percutaneous Approach (ICD-10-PCS; 2020-12-16)
PROC: 4A133B1 Monitoring of Arterial Pressure, Peripheral, Percutaneous Approach (ICD-10-PCS; 2020-12-16)
PROC: 4A133J1 Monitoring of Arterial Pulse, Peripheral, Percutaneous Approach (ICD-10-PCS; 2020-12-16)
PROC: 06HM33Z Insertion of Infusion Device into Right Femoral Vein, Percutaneous Approach (ICD-10-PCS; 2020-12-16)
PROC: 5A12012 Performance of Cardiac Output, Single, Manual (ICD-10-PCS; 2020-12-16)
PROC: 3E033XZ Introduction of Vasopressor into Peripheral Vein, Percutaneous Approach (ICD-10-PCS; 2020-12-16)
PROC: 0D9670Z Drainage of Stomach with Drainage Device, Via Natural or Artificial Opening (ICD-10-PCS; 2020-12-16)
DX: A41.9 Sepsis, unspecified organism (principal); J96.01 Acute respiratory failure with hypoxia; R65.21 Severe sepsis with septic shock; N17.0 Acute kidney failure with tubular necrosis; I50.23 Acute on chronic systolic (congestive) heart failure; E87.2 Acidosis; N39.0 Urinary tract infection, site not specified; I42.0 Dilated cardiomyopathy; I47.1 Supraventricular tachycardia; E11.9 Type 2 diabetes mellitus without complications; Z51.5 Encounter for palliative care; Z66 Do not resuscitate; Z20.822 Contact with and (suspected) exposure to COVID-19; I35.0 Nonrheumatic aortic (valve) stenosis; E87.5 Hyperkalemia; R34 Anuria and oliguria; E83.39 Other disorders of phosphorus metabolism; I25.10 Atherosclerotic heart disease of native coronary artery without angina pectoris; I46.9 Cardiac arrest, cause unspecified; Z79.899 Other long term (current) drug therapy; Z87.891 Personal history of nicotine dependence; Z82.49 Family history of ischemic heart disease and other diseases of the circulatory system; Z83.3 Family history of diabetes mellitus; Z95.5 Presence of coronary angioplasty implant and graft; Z79.82 Long term (current) use of aspirin; Z79.02 Long term (current) use of antithrombotics/antiplatelets; Z79.84 Long term (current) use of oral hypoglycemic drugs; I25.5 Ischemic cardiomyopathy; T46.4X5A Adverse effect of angiotensin-converting-enzyme inhibitors, initial encounter; T50.0X5A Adverse effect of mineralocorticoids and their antagonists, initial encounter; T38.3X5A Adverse effect of insulin and oral hypoglycemic [antidiabetic] drugs, initial encounter; I45.10 Unspecified right bundle-branch block
CPT/HCPCS: 36415; 36600; 71045; 74018; 76770; 80048; 80053; 81001; 82550; 82803; 82805; 83605; 83735; 83880; 84100; 84132; 84484; 85025; 85610; 85730; 86706; 87077; 87086; 87186; 87340; 87635; 93005; 94002; 96361; 96374; 96375; 99291; 99292